=== PATIENT | female | born 1940 | race Caucasian/White ===

== ENCOUNTER → 2019-08-15 10:49 | Outpatient (CLI) | payer MEDICARE, SELFPAY ==
[2019-08-15 11:51] LABS: Alanine Aminotransferase 23 IU/L (9-52); Albumin 4.5 g/dL (3.5-5.0); Albumin Globulin Ratio 1.2 (1.0-2.8); Alkaline Phosphatase 98 U/L (38-126); Aspartate Aminotransferase 30 IU/L (14-36); BUN Creatinine Ratio 34.4 (6-22); Bilirubin Total 0.7 mg/dL (0.2-1.3); Blood Urea Nitrogen 31 mg/dL (7-17); Calcium 9.8 mg/dL (8.4-10.2); Carbon Dioxide 29 mmol/L (22-32); Chloride 98 mmol/L (98-107); Estimated Glomerular Filt Rate > 60.0 mL/min (>60); Globulin 3.7 g/dL (1.7-4.1); Glucose 102 mg/dL (80-110); HEMOLYSIS < 15 (0-50); Potassium 3.6 mmol/L (3.4-5.1); Sodium 138 mmol/L (137-145); Total Protein 8.2 g/dL (6.3-8.2)
--- NOTE | 2019-08-15 11:58 | DI.CT.S_ITS ---
PROCEDURE: CT ABDOMEN PELVIS W CON INDICATIONS: urinary tract infection TECHNIQUE: After the administration of oral and intravenous contrast, 5 mm thick sections acquired from the diaphragms to the symphysis. 5 mm thick coronal and sagittal reformats were performed. For radiation dose reduction, the following was used: automated exposure control, adjustment of mA and/or kV according to patient size. COMPARISON: [facility], CT, ABDOMEN/PELVIS WITH CONTRAST, 12/07/2016, 16:12. FINDINGS: Image quality: Excellent. ABDOMEN: Lung bases: Mild bibasilar atelectasis. There are partially imaged possible subcutaneous/soft tissue masses of the inferior right breast, measuring up to approximately 2.0 cm in greatest diameter. Solid organs: There is diffuse hypoattenuation consistent with hepatic steatosis. Gallbladder is unremarkable. Biliary system is non-dilated. There is a punctate calcification in the pancreatic head that is stable to comparison exam of 12/07/16. Pancreas enhances normally. Spleen is normal in size and enhancement. No adrenal nodules. Kidneys are normal in size and enhancement, without hydronephrosis. No nephrolithiasis identified. Subcentimeter hypoattenuating foci within the left kidney are too small to fully characterize on this exam, but are most consistent with renal cysts. There is minimal asymmetric urothelial enhancement of the proximal left ureter. Peritoneum and bowel: No evidence of bowel obstruction. Normal appendix seen on axial image 44 of series 2. There is diffuse colonic diverticulosis that is worst in the sigmoid colon. There is minimal fat stranding of the left lower quadrant of the abdomen adjacent the sigmoid colon. No free fluid or air. Nodes and vessels: No retroperitoneal or mesenteric adenopathy. Aorta and inferior vena cava are normal in caliber. There is moderate calcified and noncalcified plaque of the abdominal aorta. Miscellaneous: There is a 1.0 cm fat-containing umbilical hernia. PELVIS: Genitourinary: Bladder wall thickness is normal. Uterus is present. There is prominence of the pelvic vasculature adjacent to uterus. Miscellaneous: No inguinal hernias or adenopathy. Bones: No suspicious bony lesions. Moderate multilevel degenerative changes of the lumbar spine with grade 1 anterolisthesis of L4 on L5. IMPRESSION: 1. Minimal asymmetric urothelial enhancement of the proximal left ureter, which may be reflective of low-grade infection/inflammation. No tammy CT evidence of hydronephrosis, nephrolithiasis, or perinephric abscess. Correlation with urinalysis suggested. 2. Minimal fat stranding adjacent the sigmoid colon, which may represent a low-grade colitis or diverticulitis in the appropriate clinical setting. No intra-abdominal abscess, free fluid, or free intraperitoneal air identified. 3. Partially imaged possible subcutaneous/soft tissue masses of the inferior right breast; recommend diagnostic mammography with possible ultrasound if not recently performed. Dictated by: Jace Hope M.D. on 08/15/2019 at 15:52 Approved by: Jace Hope M.D. on 08/15/2019 at 17:34
== END ==
PROVIDERS: PCP Family Medicine; Visit Provider Family Medicine
DX: N39.0 Urinary tract infection, site not specified (principal); N63.10 Unspecified lump in the right breast, unspecified quadrant; K42.9 Umbilical hernia without obstruction or gangrene; K57.30 Diverticulosis of large intestine without perforation or abscess without bleeding; I70.0 Atherosclerosis of aorta; M43.16 Spondylolisthesis, lumbar region
CPT/HCPCS: 36415; 74177; 80053; Q9967

== ENCOUNTER 2020-05-04 10:24 | Emergency (ER) | payer MEDICARE, SELFPAY ==
[2020-05-04 10:27] VITALS: BP 178/81; PULSE 117; RESP 24; TEMP 36.3; O2SAT 92
--- NOTE | 2020-05-04 10:34 | DI.RAD.S_ITS ---
PROCEDURE: XR CHEST 1V INDICATIONS: Shortness of breath TECHNIQUE: One view of the chest was acquired. COMPARISON: [facility], , CHEST 2 VIEW, 12/07/2016, 13:57. FINDINGS: Surgical changes and devices: None. Lungs and pleura: Lungs are clear. Scattered scarring/atelectasis. No pleural effusions or pneumothorax. Mediastinum: Mediastinal contours appear normal. Heart size is normal. Bones and chest wall: No suspicious bony lesions. Overlying soft tissues appear unremarkable. Right shoulder degeneration and possible calcific tendinitis. Lateral curvature of the spine and discogenic changes. IMPRESSION: No acute disease Dictated by: Seun Rodríguez M.D. on 05/04/2020 at 11:39 Approved by: Seun Rodríguez M.D. on 05/04/2020 at 11:41
--- NOTE | 2020-05-04 10:48 | ED.GENADULT ---
HPI - General Adult General Chief complaint: Shortness of Breath/Dyspnea Stated complaint: rt leg clot per phys Time Seen by Provider: 05/04/20 10:25 Source: patient Mode of arrival: Ambulatory Limitations: no limitations History of Present Illness HPI narrative: Patient is an 79-year-old female. I received a call from her primary doctor yesterday sting the patient was going to come to the emergency department last night for evaluation of a potential DVT/PE. The concern was this was because the patient was having left greater than right lower extremity swelling. And she was also complaining of shortness of breath. She also has a history of COPD however does not use home oxygen. No prior history of CHF. She states that she has been told that she has had a heart attack in the past based off of EKG findings but has never had chest pain. Has never had a stroke before not on anticoagulation. Patient states that last evening she missed the [place] and instead of taking a later [place] and being stuck here and not being able to return home she decided to come this morning. She states that she is still having shortness of breath however this has improved. She denies having any chest pain. She states that she is having lower extremity swelling with the left being greater than right however it is much improved from yesterday. She also states that the swelling yesterday was not only in her lower extremities but also in her hands and her face which she states has improved as well. Related Data Home Medications Medication Instructions Recorded Confirmed folic acid 2 mg PO QDAY #0 07/23/16 Previous Rx's Medication Instructions Recorded triamterene-hydrochlorothiazid 1 tab PO QDAY #90 tab 11/27/16 estradiol [Estrace] 0 VAGINAL 2-3 DAYS/WK #42 gm 12/08/16 trazodone 50 mg PO SEE INSTRUCTIONS #180 tab 02/04/17 sertraline 1.5 tab PO HS #45 tab 06/26/17 Allergies Allergy/AdvReac Type Severity Reaction Status Date / Time codeine [CODEINE] Allergy Mild N & V Verified 05/04/20 10:36 Penicillins [PENICILLINS] Allergy Mild RASH Verified 05/04/20 10:36 Review of Systems Constitutional Constitutional: Denies fever(s) and Denies headache(s) ENT Ears, Nose, Mouth, and Throat: Denies headache(s) Cardiovascular Cardiovascular: Denies chest pain and Reports dyspnea Respiratory Respiratory: Reports cough and Reports dyspnea Gastrointestinal Gastrointestinal: Denies abdominal pain, Denies change in bowel habits and Denies diarrhea Musculoskeletal Musculoskeletal: Denies arthralgias and Denies myalgias Comments: Left greater than right lower extremity swelling Integumentary/Breasts Skin/Breast: Denies rash Neurologic Neurologic: Denies behavioral changes and Denies headache(s) Psychiatric Psychiatric: Denies behavioral changes Hematologic/Lymphatic Hematologic/Lymphatic: Denies easy bleeding and Denies easy bruising Patient History Medical History C. difficile colitis (Inactive) Controlled depression (05/29/16) COPD (chronic obstructive pulmonary disease) (Acute) Hypokalemia (Inactive) Rheumatoid arthritis with positive rheumatoid factor (10/01/16) Surgical History (Updated 03/30/18 @ 06:02 by Conversion Provider) Status post delivery Family History (Updated 10/29/15 @ 00:00 by Conversion Provider) Sister Age: 83 Hypertension Social History Smoking Status: Former smoker Smoking Status: Former smoker alcohol intake frequency: 0-2 drinks per day Substance Use Type: does not use Exam Initial Vital Signs Initial Vital Signs: Vital Signs Temperature 97.3 F L 05/04/20 10:27 Pulse Rate 117 H 05/04/20 10:27 Respiratory Rate 24 05/04/20 10:27 Blood Pressure 178/81 H 05/04/20 10:27 Pulse Oximetry 92 05/04/20 10:27 Const General: cooperative, comfortable and well developed Limitations: mental status not altered [facility] [place] Head: normal to inspection and normocephalic Resp Effort & Inspection: normal respiratory effort, cough, not labored and tachypneic Auscultation: clear to auscultation bilaterally Cardio Rate: tachycardic Rhythm: regular rhythm Pulses: radial pulses present GI Inspection: non-distended Palpation: soft Skin Lesions: no lesions Rashes: no rashes Neuro General: patient alert, patient awake and patient oriented x3 Cognition: normal cognition Speech: speech normal Extrem General: normal to inspection, capillary refill normal and edema (1+ pitting edema left lower extremity) Psych Appearance: grossly normal and well kempt Scores GCS Goessel coma scale eye opening: Spontaneous Goessel coma scale verbal response: Orientated Ethan coma scale motor response: Obey commands Ethan coma scale total score: 15 Course Orders Ordered: ED Orders 05/04/20 10:34 XR chest 1V Stat EKG-12 Lead Stat 05/04/20 10:50 Complete Blood Count AUTO DIFF Stat Comprehensive Metabolic Panel Stat D Dimer Stat Lipase Stat NT-proBNP (BNP-Adult 18+) Stat Partial Thromboplastin Time Stat Procalcitonin Stat Prothrombin Time INR Stat Troponin I Stat Vital Signs Vital signs: Vital Signs - 8 hr 05/04/20 10:27 05/04/20 11:17 Temperature 97.3 F L Pulse Rate 117 H 100 H Respiratory Rate 24 27 H Blood Pressure 178/81 H Blood Pressure [Right Arm] 148/85 H Pulse Oximetry 92 97 Medical Decision Making Lab Data Lab results reviewed: Yes I reviewed the patient's lab results. Result diagrams: 05/04/20 10:50 05/04/20 10:50 Labs: Lab Results 05/04/20 05/04/20 05/04/20 Range/Units 10:50 10:50 10:50 WBC 6.7 (4.5-11.0) X10^3/uL RBC 6.41 H (4.0-5.2) X10^6/uL Hgb 11.6 L (12.0-16.0) g/dL Hct 36.4 (36-46) % MCV 56.8 L (80-100) fL MCH 18.1 L (26-34) PG MCHC 31.9 (30-36) % RDW 16.0 H (11.6-14.8) % Plt Count 184 (150-400) X10^3/uL Neut % (Auto) 45.1 L (50-75) % Lymph % (Auto) 38.7 (25-40) % [place] % (Auto) 14.0 (3-14) % Eos % (Auto) 1.3 L (2-4) % Baso % (Auto) 0.9 (0-2) % Neut # (Auto) 3000 (3265-9406) /uL Lymph # (Auto) 2600 (2017-9239) /uL [place] # (Auto) 900 (0-900) /uL Eos # (Auto) 100 (0-450) /uL Baso # (Auto) 100 (0-100) /uL RBC Morphology See below Anisocytosis 1+ H Microcytosis 2+ H PT (10.1-12.7) SECONDS INR (0.9-1.3) APTT (26.4-36.2) SECONDS D-Dimer 369 H (<230) ng/mL Sodium 138 (137-145) mmol/L Potassium 4.6 (3.4-5.1) mmol/L Chloride 101 (98-107) mmol/L Carbon Dioxide 29 (22-32) mmol/L BUN 24 H (7-17) mg/dL Creatinine 0.90 (0.52-1.04) mg/dL Estimated GFR > 60.0 (>60) mL/min BUN/Creatinine Ratio 26.7 H (6-22) Glucose 102 (80-110) mg/dL Calcium 9.6 (8.4-10.2) mg/dL Total Bilirubin 0.7 (0.2-1.3) mg/dL AST 31 (14-36) IU/L ALT 18 (<35) IU/L Alkaline Phosphatase 101 (38-126) U/L Troponin I (0.01-0.034) ng/mL NT-Pro-B Natriuret Pep 179 (<450) pg/mL Total Protein 7.8 (6.3-8.2) g/dL Albumin 4.2 (3.5-5.0) g/dL Globulin 3.6 (1.7-4.1) g/dL Albumin/Globulin Ratio 1.2 (1.0-2.8) Lipase 49 (23-300) U/L Procalcitonin (<0.5) ng/mL 05/04/20 05/04/20 05/04/20 Range/Units 10:50 10:50 10:50 WBC (4.5-11.0) X10^3/uL RBC (4.0-5.2) X10^6/uL Hgb (12.0-16.0) g/dL Hct (36-46) % MCV (80-100) fL MCH (26-34) PG MCHC (30-36) % RDW (11.6-14.8) % Plt Count (150-400) X10^3/uL Neut % (Auto) (50-75) % Lymph % (Auto) (25-40) % [place] % (Auto) (3-14) % Eos % (Auto) (2-4) % Baso % (Auto) (0-2) % Neut # (Auto) (0248-6749) /uL Lymph # (Auto) (3736-7150) /uL [place] # (Auto) (0-900) /uL Eos # (Auto) (0-450) /uL Baso # (Auto) (0-100) /uL RBC Morphology Anisocytosis Microcytosis PT 11.7 (10.1-12.7) SECONDS INR 1.0 (0.9-1.3) APTT 29 (26.4-36.2) SECONDS D-Dimer (<230) ng/mL Sodium (137-145) mmol/L Potassium (3.4-5.1) mmol/L Chloride (98-107) mmol/L Carbon Dioxide (22-32) mmol/L BUN (7-17) mg/dL Creatinine (0.52-1.04) mg/dL Estimated GFR (>60) mL/min BUN/Creatinine Ratio (6-22) Glucose (80-110) mg/dL Calcium (8.4-10.2) mg/dL Total Bilirubin (0.2-1.3) mg/dL AST (14-36) IU/L ALT (<35) IU/L Alkaline Phosphatase (38-126) U/L Troponin I < 0.012 (0.01-0.034) ng/mL NT-Pro-B Natriuret Pep (<450) pg/mL Total Protein (6.3-8.2) g/dL Albumin (3.5-5.0) g/dL Globulin (1.7-4.1) g/dL Albumin/Globulin Ratio (1.0-2.8) Lipase (23-300) U/L Procalcitonin < 0.05 (<0.5) ng/mL Imaging Data Chest x-ray: Radiologist's Impression: [address] [address] XRay Report Signed Patient: Nancy Miner GMR#: [id number] : 1940Acct:[id number] Age/Sex: 79 / FDate of Service: 05/04/20 Loc: ED Accession Number: [id number] Procedure: XR chest 1V Ordering Provider: Javier Beebe D.O. PROCEDURE: XR CHEST 1V INDICATIONS: Shortness of breath TECHNIQUE: One view of the chest was acquired. COMPARISON: [facility], , CHEST 2 VIEW, 12/07/2016, 13:57. FINDINGS: Surgical changes and devices: None. Lungs and pleura: Lungs are clear. Scattered scarring/atelectasis. No pleural effusions or pneumothorax. Mediastinum: Mediastinal contours appear normal. Heart size is normal. Bones and chest wall: No suspicious bony lesions. Overlying soft tissues appear unremarkable. Right shoulder degeneration and possible calcific tendinitis. Lateral curvature of the spine and discogenic changes. IMPRESSION: No acute disease Dictated by: Seun Rodríguez M.D. on 05/04/2020 at 11:39 Approved by: Seun Rodríguez M.D. on 05/04/2020 at 11:41 ECG Data Attestation: I personally reviewed and interpreted this ECG as follows: Prior ECG tracings: not available for review Interpretation: Sinus rhythm Ventricular rate of 93 Frequent PVCs in bigeminy pattern Normal QRS Normal QTC Nonspecific ST T wave changes MDM Narrative Medical decision making narrative: Patient does have some left lower extremity swelling greater than the right however she states that it is actually improved today compared to yesterday. She has a cough but this is chronic. She has no chest pain. She actually states that her shortness of breath is better today than what it was yesterday. She did not want an IV upon arrival. EKG shows bigeminy however the patient states that she has been told that she has frequent PVCs. Patient's D-dimer is less than 500. Troponin is negative. Chest x-ray is unremarkable. Rest of her labs are unremarkable. Had a discussion with the patient regarding putting in an IV and obtaining a CT scan or obtaining left lower extremity ultrasound however the patient states she did not want this done. She expressed understanding that we could potentially be missing a life-threatening illness such as a pulmonary embolism. Patient is alert oriented x3. GCS 15. Not clinically intoxicated. My opinion has the capacity to make decisions. Patient states that she would like to go home and follow-up with her primary doctor without further workup here in the emergency department. She was given return precautions and follow-up instructions. She expressed understanding agreement. Discharge Plan Departure Patient Disposition: Home Clinical Impression: Swelling of lower limb, Cough Instructions: DI for Peripheral Edema, Unilateral Activity Restrictions/Additional Instructions: I recommend that you contact your primary provider to discuss further workup. Please return to the emergency department for any new or worsening symptoms Prescriptions: No Action folic acid 1 MG tablet 2 mg PO QDAY Qty: 0 RF: 0 triamterene-hydrochlorothiazid 37.5 MG/25 MG tablet 1 tab PO QDAY Qty: 90 RF: 3 estradiol [Estrace] 0.01 % cream 0 Vaginal 2-3 DAYS/WK Qty: 42 RF: 10 trazodone 50 MG tablet 50 mg PO SEE INSTRUCTIONS Qty: 180 RF: 3 sertraline 50 MG tablet 1.5 tab PO HS Qty: 45 RF: 12 Referrals: Javier Shields [Primary Care Provider] -
[2020-05-04 11:04] LABS: Add Manual Diff / Slide Review NO; Basophils Absolute Auto 100 /uL (0-100); Basophils Percent Auto 0.9 % (0-2); Eosinophils Absolute Auto 100 /uL (0-450); Eosinophils Percent Auto 1.3 % (2-4); Hematocrit 36.4 % (36-46); Hemoglobin 11.6 g/dL (12.0-16.0); Lymphocytes Absolute Auto 2600 /uL (1100-4500); Lymphocytes Percent Auto 38.7 % (25-40); Mean Corpuscular HGB Conc 31.9 % (30-36); Mean Corpuscular Hemoglobin 18.1 PG (26-34); Mean Corpuscular Volume 56.8 fL (80-100); Monocytes Absolute Auto 900 /uL (0-900); Neutrophils Absolute Auto 3000 /uL (1500-7000); Neutrophils Percent Auto 45.1 % (50-75); Platelet Count 184 X10^3/uL (150-400); Red Blood Cell Count 6.41 X10^6/uL (4.0-5.2); White Blood Cell Count 6.7 X10^3/uL (4.5-11.0)
--- NOTE | 2020-05-04 11:05 | PC.NURSE ---
patient up to restroom. Required assistance to get unplugged from monitor. Patient ambulated self without assistance to restroom.
--- NOTE | 2020-05-04 11:06 | PC.NURSE ---
drawn by lab
[2020-05-04 11:12] LABS: Prothrombin Time 11.7 SECONDS (10.1-12.7)
[2020-05-04 11:15] LABS: Alanine Aminotransferase 18 IU/L (<35); Albumin 4.2 g/dL (3.5-5.0); Albumin Globulin Ratio 1.2 (1.0-2.8); Alkaline Phosphatase 101 U/L (38-126); Aspartate Aminotransferase 31 IU/L (14-36); BUN Creatinine Ratio 26.7 (6-22); Bilirubin Total 0.7 mg/dL (0.2-1.3); Blood Urea Nitrogen 24 mg/dL (7-17); Calcium 9.6 mg/dL (8.4-10.2); Carbon Dioxide 29 mmol/L (22-32); Chloride 101 mmol/L (98-107); Estimated Glomerular Filt Rate > 60.0 mL/min (>60); Globulin 3.6 g/dL (1.7-4.1); Glucose 102 mg/dL (80-110); HEMOLYSIS < 15 (0-50); Lipase 49 U/L (23-300); PTT Partial Thromboplastin Tim 29 SECONDS (26.4-36.2); Potassium 4.6 mmol/L (3.4-5.1); Sodium 138 mmol/L (137-145); Total Protein 7.8 g/dL (6.3-8.2)
[2020-05-04 11:17] VITALS: BP 148/85; PULSE 100; RESP 27; O2SAT 97
[2020-05-04 11:24] LABS: NT-proBNP (BNP-Adult 18+) 179 pg/mL (<450)
[2020-05-04 11:27] LABS: Troponin I < 0.012 ng/mL (0.01-0.034)
[2020-05-04 11:30] LABS: D Dimer 369 ng/mL (<230)
[2020-05-04 11:31] LABS: Procalcitonin < 0.05 ng/mL (<0.5)
[2020-05-04 11:38] LABS: Anisocytosis 1+; Microcytosis 2+
== END 2020-05-04 12:18 | disposition home or self-care (01) ==
PROVIDERS: Emergency Provider Emergency Medicine; PCP Family Medicine
DX: R06.02 Shortness of breath (principal); R05 Cough; R60.0 Localized edema; R00.8 Other abnormalities of heart beat
CPT/HCPCS: 36415; 71045; 80053; 83690; 83880; 84145; 84484; 85025; 85379; 85610; 85730; 93005; 93010; 99284

== ENCOUNTER → 2021-07-11 12:32 | Outpatient (CLI) | payer MEDICARE, SELFPAY ==
--- OUTSIDE RECORDS SUMMARY | 2021-06-17 08:20 | XMS_ITS | Referral Summary ---
:1940 Author Organization [facility] Address [address] [place] [address] Care Team Providers Name Role Phone NAKUL Muro Primary Care Provider Reason for Referral Hospital - Outpatient (Routine) Status Reason Specialty Diagnoses / Procedures Referred By Erica valentine Referred To Contact Closed Diagnoses MARTIN (dyspnea on exertion) Chronic obstructive pulmonary disease, unspecified COPD type (CMS/HCC) [facility] Complete PFT with DLCO [address] [place] [address] [address] [id number] [place], [place] Phone: [phone] Phone: Electronically signed by Deidra Arreaga MD at (Routine) Status Reason Specialty Diagnoses / Referred By Referred To Procedures Contact Contact Pending Review Diagnoses LBBB (left bundle branch block) MARTIN (dyspnea on exertion) Deidra Arreaga Procedures ECHOCARDIOGRAM JOSÉ Smith MD [address] [place] [address] [address] [place] [address] Electronically signed by eDidra Arreaga MD at Reason for Visit Reason Comments Heart Problem Evaluate and Treat (Routine) Status Reason Specialty Diagnoses / Procedures Referred By Erica valentine Referred To Contact Closed Diagnoses Chronic obstructive pulmonary disease, unspecified Heart disease, unspecified Nader Brown CARDIOLOG[facility] Procedures [facility] OFF[facility] [address] [address] [place], [address] Phone: [place] [address] Phone: [phone] Fax: Encounter Details Date Type Department Care Team Description 05/31/[address] [facility] Deidra Arreaga LBBB (left bundle branch block) (Primary Dx); Clinics Cardiology RMD MARIO Clinton (dyspnea on exertion); [place] [address] [place] [address] Sinus tachycardia; [address] [place] [address], [address] Chronic obstructive pulmonary disease, u nspecified COPD type ([facility]/HCC) [place], [place] [id number] Allergies Active Allergy Reactions Severity Noted Date Comments Codeine Nausea And Vomiting 11/16/2014 Penicillins Rash Low 11/30/1997 Sulfa (Sulfonamide Nausea Only 11/30/1997 Antibiotics) Sulfasalazine 03/15/2003 severe nausea. Has taken since and has not had a probl em. documented as of this encounter (statuses as of 06/14/2021) Medications Medication Sig Dispensed Refills Start Date End Date Status albuterol HFA Inhale 2 puffs 0 08/24/2017 Active (PROVENTIL every 4 hours. HFA;VENTOLIN HFA) 90 mcg/actuation inhaler triamterene-hydrochlo Take 1 tablet by 0 03/03/2014 Active rothiazid mouth daily (MAXZIDE-25) 37.5-25 mg baclofen (LIORESAL) 0 11/17/2019 Active 10 mg tablet FLUoxetine (PROzac) Take 20 mg by 0 11/07/2020 Active 20 mg capsule mouth daily ipratropium HFA Inhale 2 puffs 0 10/19/2012 Active (ATROVENT HFA) 17 every 4 (four) mcg/actuation inhaler hours as needed magnesium oxide Take 400 mg by 0 07/23/2018 Active (MAG-OX) 400 mg mouth nightly (241.3 mg magnesium) tablet nitrofurantoin Take 50 mg by 0 04/24/2020 Active (MACRODANTIN) 50 mg mouth daily capsule tiotropium (SPIRIVA) Place 1 capsule 0 12/08/2019 Active 18 mcg into inhaler and inhale daily triamcinolone Administer 1 0 12/03/2012 Ac tive (NASACORT) 55 mcg spray into each nasal inhaler nostril daily budesonide-formoteroL Inhale 2 puffs 2 1 Inhaler 11 11/13/2020 11/13/2021 Active (SYMBICORT) 160-4.5 (two) times a day mcg/actuation inhaler Rinse mouth with water after use to reduce aftertaste and incidence of candidiasis. Do not swallow. leflunomide (ARAVA) Take 1 tablet (10 90 tablet 1 03/13/2021 Active 10 mg mg total) by tabletIndications: mouth daily Seropositive rheumatoid arthritis of multiple joints (CMS/HCC) fluticasone Inhale 0 Active furoate-vilanteroL 200-25 mcg/dose blister with device documented as of this encounter (statuses as of 06/14/2021) Active Problems Problem Noted Date H/O Clostridium difficile infection 08/17/2019 Beta-thalassemia 08/30/2018 Overview: Formatting of this note might be differe nt from the original. Beta thalassemia minor?Beta thalassemia minor (also called beta thalassemia trait) is a carrier condition in which an individual is heterozygous for a beta+ or beta0 thalassemia mutation. Beta curt lassemia minor is often an asymptomatic carrier state. Individuals with beta thalassemia minor may have mild anemia; most are asymptomatic but exhibit marked microcytosis that can be mistaken for iron deficiency. (See 'Differential diagnosis' below.) The possibility of other subtle symptoms or findings was addressed in a 2007 retrospective review involving 217 individuals with beta thalassemia trait [29]. Approximately two-thirds were aware of their diagnosis. A control group consisted of 89 healthy controls and 96 individuals with microcytic anemia of other causes such as mild iron deficiency. Compared with controls, the individuals with beta curt lassemia trait were more likely to have symptoms of anemia (lethargy, fatigue) and to seek medical attention for fever. Symptoms in the individuals with beta thalassemia trait were similar to those with mild microcytic anemia of other causes and were not influenced by knowledge of the beta thalassemia trait diagnosis. Mild anemia and/or microcytosis ? Mild anemia with microcytosis, or microcytosis alone, is consistent with thalassemia minor. The hemoglobin level is usually >10 g/dL, and there is not a large component of ongoing hemolysis. Fibromyalgia 09/02/2017 Osteoarthritis 09/02/2017 Overview: Formatting of this note might be differe nt from the original. widespread FERNIE (obstructive sleep apnea) 09/02/2017 Overview: Formatting of this note might be differe nt from the original. On CPAP Centrilobular emphysema 03/08/2015 Overview: Formatting of this note is different fro m the original. Date FEV1 FVC DLCO 03/08/14 0.84 1.51 8.6 08/13/16 0.82 1.64 7.2 10/15/17 0.87 1.56 6.7 Last Assessment & Plan: Formatting of this note might be differe nt from the original. She has end-stage COPD with an FEV1 of a bout 0.8 and severe reduction in DLCO. I have encouraged her to continue to use her inhalers and to exercise. She reports that she has been evaluated by cardiol georgette and is not thought to be at risk for significant coronary artery disease. I am not identified any other possible comorbidities that could be playing a role. I will check an oxygen profile and consider a prescription for oxygen if indicated. 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 ? Patient [facility] for concerns of rheumatoid arthritis on 09/13/2020 [facility]: ?? 09/18/05 note She has had Rheumatoid arthritis for the last six to seven years and is currently on DMARD treatment with Leflunomide 20mg daily. She complains of intermittent pain and swelling in the small joints of her hands (MCP joints). She is mainly troubled by pain in the base of left thumb that is worse upon movement of the thumb. This is not accompanied by swelling. She also has intermittent swelling and pain in both her wrists. 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 The remainder of her peripheral joints, including the knees, ankles and the MTP joints of the feet are doing rather well without any significant pain or swelling. She denies significant symptomatology in her cervical spine. There is no history of extraarticular features such as recurrent re dness of the eyes, excessive dryness of the eyes or the mouth or subcutaneous nodules. ?? Previously, she has been on oral week ly methotrexate with very good control of disease activity. However, she has been unable to take the medication for more than six months at a stretch because of d evelopment of mood swings. Most recently , she was on methotrexate from December 2004 to June 2005, before it had to be discontinued because of mood swings. Since late June 2005, she has been taking Leflunomide 20mg per day. She takes Etod olac one tablet once or twice as day as needed for control of pain. Her average intake is about two to three tablets in a week. ?? last seen on 10/01/05 - chronically on leflunomide as single drug DMARD therapy with occasional low dose prednisone with no extra-articular manifestations. RECORDS FROM [facility]: ?? Followed at [facility] most recently prior to [facility] rheumatology ?? Patient was seemingly continued solel y on leflunomide which she had continued since being treated at [place]. Notes also mention however usage of methotrexate by senior cost estimator for issues of autoimmune neutropenia and patient also was diagno sed with fibromyositis and issues of generalized osteoarthritis with patient last seen by them on 05/23/2020 LABS: From [facility] ? ESR of 10 on 05/24/1999 ? ESR of 11 on 10/17/99 ? Rheumatoid factor positive at 1: 160 on 10/17/1999 ? KURTIS positive at 1: 80 homogeneous pattern on 10/17/1999 ? CRP of 1.3 mg/dL and ESR of 21 on 09/18/2005 ? CRP of 0.44 mg/dL on 10/01/2005 LABS: From [facility] ? Rheumatoid factor positive at 570 on 03/15/2003 ? Rheumatoid factor positive at 82 and Anti-CCP strong positive at 112 on 04/16/2012 ? CRP of 5.4 mg/dL and ESR 54 on 04/16/2012 ? KURTIS screen negative on 04/16/2012 ? HIV and HCV antibody testing negative on 04/16/2012 ? HBV surface antigen, surface antibody and core antibody negative on 04/16/2012 Major depressive disorder, single episode, moderate documented as of this encounter (statuses as of 06/14/2021) Immunizations Name Administration Dates Next Due FLU High Dose 65+ (Fluzone) 09/06/2012 FLU PF 6-35 Mo (Fluzone 0.25 mL Syringe) 09/12/2015 Influenza, Quadrivalent 09/12/2015 Pneumococcal Conjugate PCV13 ([id number]) 09/12/2015 Pneumococcal Polysaccharide PPV23 ([id number]) 09/06/2012 TD Preservative Free (Tenivac) 02/22/1998 Tdap (Boostrix,Adacel) 09/06/2012 VFC Pneumococcal Conjugate PCV13 ([id number]) 09/12/2015 VFC Pneumococcal Polysaccharide PPV23 ([id number]) 09/06/20 12 VFC Tdap (Boostrix,Adacel) 09/06/2012 documented as of this encounter Social History Tobacco Use Types Packs/Day Years Used Date Former Smoker 0.5 60 Quit: 2011 Smokeless Tobacco: Never Used Alcohol Use Standard Drinks/Week Comments No 0 (1 standard drink = 0.6 oz pure alcoho l) Sex Assigned at Date Recorded Not on file Job Start Date Occupation Industry Not on file Not on file Not on file documented as of this encounter Last Filed Vital Signs Vital Sign Reading Time Taken Comments Blood Pressure 112/66 05/31/2021 2:31 PM PDT Pulse 110 05/31/2021 2:31 PM PDT Temperature - - Respiratory Rate - - Oxygen Saturation - - Inhaled Oxygen Concentration - - Weight 62.1 kg (137 lb) 05/31/2021 2:31 PM PDT Height 152.4 cm (5') 05/31/2021 2:31 PM PDT Body Mass Index 26.76 05/31/2021 2:31 PM PDT documented in this encounter Progress Notes Deidra Arreaga MD - 05/31/2021 2:30 PM PDT Subjective Patient ID: Nancy Miner is a 80 y.o. female that presents today for had concerns including Heart Problem. HPI: 80 yo W h/o HTN, CKD, and rheumatoid arthritis here for assessment of her dyspnea. Patient is here by herself. Patient states that has had dyspnea for the past few years and it has progressed withtime. She has dyspnea with doing her ADLs. She has chronic dizziness but denies chest pain, heart racing sensations, or syncope. She is not much active and uses a cane to get around. She lives by herself on [address] with her cat. 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 PROBLEM LIST: # LBBB # CKD # Rheumatoid arthritis # h/o amphetamine use while in college # COPD: quit cigs around 2009 Fam Hx: kids are healthy Past Medical History: Diagnosis Date ??? Anemia ??? Anxiety ??? Cataracts, bilateral ??? Emphysema lung (CMS/HCC) ??? Kidney stone ??? Leukemia (CMS/HCC) ??? Sleep apnea Past Surgical History: Procedure Laterality Date ??? SECTION Social History Socioeconomic History ??? Marital status: Unknown Spouse name: Not on file ??? Number of children: Not on file ??? Years of education: Not on file ??? Highest education level: Not on file Tobacco Use ??? Smoking status: Former Smoker Packs/day: 0.50 Years: 60.00 Pack years: 30.00 Quit date: 2011 Years since quittin.5 ??? Smokeless tobacco: Never Used Substance and Sexual Activity ??? Alcohol use: No ??? Drug use: No ??? Sexual activity: Defer Allergies Allergen Reactions ??? Codeine Nausea And Vomiting ??? Sulfa (Sulfonamide Antibiotics) Nausea Only ??? Sulfasalazine severe nausea. Has taken since and has not had a problem. ??? Penicillins Rash Current Medication List Sig albuterol HFA (PROVENTIL HFA;VENTOLIN HFA) 90 mcg/actuation inhaler Inhale 2 puffs every 4 hours. baclofen (LIORESAL) 10 mg tablet budesonide-formoteroL (SYMBICORT) 160-4.5 mcg/actuation inhaler Inhale 2 puffs 2 (two) times a day Rinse mouth with water after use to reduce aftertaste and incidence of candidiasis. Do not swallow. FLUoxetine (PROzac) 20 mg capsule Take 20 mg by mouth daily fluticasone furoate-vilanteroL 200-25 mcg/dose blister with device Inhale ipratropium HFA (ATROVENT HFA) 17 mcg/actuation inhaler Inhale 2 puffs every 4 (four) hours as needed leflunomide (ARAVA) 10 mg tablet Take 1 tablet (10 mg total) by mouth daily magnesium oxide (MAG-OX) 400 mg (241.3 mg magnesium) tablet Take 400 mg by mouth nightly nitrofurantoin (MACRODANTIN) 50 mg capsule Take 50 mg by mouth daily tiotropium (SPIRIVA) [address] 1 capsule into inhaler and inhale daily triamcinolone (NASACORT) 55 mcg nasal inhaler Administer 1 spray into each nostril daily triamterene-hydrochlorothiazid (MAXZIDE-25) 37.5-25 mg Take 1 tablet by mouth daily Review of Systems Constitutional: Negative for fatigue and unexpected weight change. Eyes: Negative for visual disturbance. Respiratory: Negative for shortness of breath. Cardiovascular: Negative for chest pain, palpitations and leg swelling. Gastrointestinal: Negative for blood in stool. Endocrine: Negative for polydipsia. Genitourinary: Negative for hematuria. Skin: Negative for rash. Neurological: Negative for dizziness, weakness and light-headedness. Hematological: Does not bruise/bleed easily. Psychiatric/Behavioral: The patient is not nervous/anxious. Objective BP 112/66 (BP Location: Left arm, Patient Position: Sitting) Pulse (!) 110 Ht 1.524 m Wt 62.1 kg BMI 26.76 kg/m?? Physical Exam: General appearance: No apparent distress, elderly, pleasant, cooperative HEET: Normocephalic atraumatic, no scleral icterus, tongue midline, mucous membranes moist Neck: supple Cardiovascular: RRR, normal S1 and normal S2, no murmurs/ rubs/gallops, PMI nondisplaced, no JVD, noperipheral edema Respiratory: Good aeration, CTAB Abdomen: Soft, nontender, nondistended, + bowel sounds Neuro: Alert, no facial droop, tongue midline, no gross motor deficits Psych: appropriate affect Skin: no rashes on face, neck, and lower extremities Echo 03/04/2019: Left ventricular ejection fraction is 60-65%. No regional wall motion abnormalities. Septal contraction pattern is consistent with left bundle branch block. Mild (Gr. I) left ventricular diastolic relaxation abnormality is demonstrated. Mild mitral regurgitation is present. Trace aortic insufficiency is demonstrated. Mild tricuspid regurgitation is present. Trace (physiologic) pulmonic insufficiency is present. Labs 02/05/2021: sodium 139, potassium 4.7, chloride 102, OC2 31, BUN 32, Cr 1.2 Assessment/Plan Comments: 1. LBBB (left bundle branch block) ECHOCARDIOGRAM COMPLETE 2. MARTIN (dyspnea on exertion) ECHOCARDIOGRAM COMPLETE, Complete PFT with DLCO, Complete blood count 3. Sinus tachycardia Thyroid Stimulating Hormone, Reflex to Free T4 4. Chronic obstructive pulmonary disease, unspecified COPD type (CMS/HCC) Complete PFT with DLCO # Dyspnea on exertion: Probably due to COPD (perhaps predominantly empysematous). Patient educatedabout her condition. Plan: - Echo - PFTs - CBC and TSH # LBBB: - Echo as above # Goals of care: patient wants to be DNR/DNI and wishes her care to be directed towards to comfort. F/U in 3 months in echo, PFTs, and labs as VV Electronically signed by Deidra Arreaga MD 05/31/2021 3:13 PM documented in this encounter Plan of Treatment Upcoming Encounters Date Type Specialty Care Team Description 09/03/2021 Telemedicine Cardiology Deidra Arreaga MD [address] [place], [place] [id number] 09/18/2021 Office Visit Rheumatology Jameson Buck MD [address] [facility] [place] [place], [place] [id number] Scheduled Orders Name Type Priority Associated Diagnoses Order S chedule ECHOCARDIOGRAM COMPLETE Imaging Routine LBBB (left bundle Expected: branch block) 05/31/2021, MARTIN (dyspnea on Expires: 12/2022 exertion) Complete PFT with DLCO PFT Routine MARTIN (dyspnea on Ex pected: exertion) 05/31/2021, Chronic obstructive Expires: 05/31/2022 pulmonary disease, unspecified COPD type (CMS/HCC) Complete blood count Lab Routine MARTIN (dyspnea on Expe cted: exertion) 05/31/2021, Expires: 2022 Thyroid Stimulating Lab Routine Sinus tachycardia Exp ected: Hormone, Reflex to Free T4 0 05/31/2021, Expires: 2021 documented as of this encounter Visit Diagnoses Diagnosis LBBB (left bundle branch block) - Primar y Other left bundle branch block MARTIN (dyspnea on exertion) Other dyspnea and respiratory abnormalit y Sinus tachycardia Other specified cardiac dysrhythmias Chronic obstructive pulmonary disease, u nspecified COPD type (CMS/HCC) documented in this encounter documented as of this encounter Advance Directives Documents on File Type Date Recorded 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
--- NOTE | 2021-07-11 12:37 | DI.ECHO.S_ITS ---
[facility]---------+ [facility] +---------+ : : [address] : : : : [id number] : : : : Phone: [phone] Echocardiogram Report + + :Name: KEANU FAJARDO Study Date: 07/11/2021 Height: 60 in : :[facility] ReadingLocation: Weight: 134 lb : : Gender: Female BSA: 1.6 m2 : :: 1940 Age: 80 yrs BP: 131/87 mmHg: :Reason For Study: LBBB : :Ordering Physician: Denae : :Rohit Arreaga Performed By: Sudheer Richardson : :Referring: DENAE ARREAGA : + + Interpretation Summary 1) Normal left ventricular size with mildly to moderately reduced systolic function (EF 40-45%). 2) Septal dysynchronous motion is consistent with conduction abnormality. 3) The right ventricle grossly appears normal in size with probable normal systolic function. 4) No significant valvular abnormalities. 5) No prior Echo available for comparison. Procedure: A two-dimensional transthoracic echocardiogram with color flow and Doppler was performed. The study quality was technically difficult. There is no prior echocardiogram noted for this patient. A contrast injection of Definity was performed to improve assessment of LV function. Left Ventricle: The left ventricle is normal in size. Left ventricular wall thickness is at the upper limits of normal. Proximal septal thickening is noted. Left ventricular systolic function is mild to moderately reduced. The ejection fraction is estimated to be 40-45%. Septal motion is consistent with conduction abnormality. Diastolic function could not be accurately assessed due to unobtainable data. Right Ventricle: The right ventricle grossly appears normal in size with probable normal systolic function. Atria: Both atria are normal in size. There is no Doppler evidence for an interatrial shunt. Mitral Valve: The mitral valve is normal in structure and function. There is no mitral regurgitation noted. Aortic Valve: There is moderate aortic valve sclerosis. There is no aortic valve stenosis. There is trace aortic regurgitation. Tricuspid Valve: The tricuspid valve is normal in structure and function. There is mild tricuspid regurgitation. The right ventricular systolic pressure is estimated to be at least 36 mmHg based on an estimated right atrial pressure of 3 mm Hg. Pulmonic Valve: The pulmonic valve is not well visualized. Great Vessels: The aortic root is normal size. The IVC is of normal diameter and collapses greater than 50% with a sniff. This suggests a low right atrial pressure of 3 mm Hg. Pericardium/ Pleura There is no pericardial effusion. There is no pleural effusion. MMode/2D Measurements & Calculations LVIDd: 3.7 cm LVOT diam: 2.0 cm LVIDs: 2.9 cm Ao root diam: 2.7 cm FS: 21.6 % IVSd: 1.4 cm LVPWd: 1.1 cm LV keita. diameter/BSA (cm/m^2): 2.3 LV sys. diameter/BSA (cm/m^2): 1.8 LA A2 area: 12.0 cm2 RA long axis: 3.6 cm LA A4 area: 9.6 cm2 RA area: 9.4 cm2 LA length (vol): 3.7 cm RA vol: 21.1 ml LA vol: 26.2 ml RA : 13.4 ml/m2 LA vol index: 16.7 ml/m2 RVD1 (basal): 2.7 cm LVLs ap4: 5.9 cm LVLd ap2: 6.7 cm LVLs ap2: 5.7 cm Doppler Measurements & Calculations Ao V2 max: 168.0 cm/sec LVOT Max Michael: 93.3 cm/sec Ao V2 mean: 115.0 cm/sec LV V1 max P.5 mmHg Ao max P.0 mmHg LV V1 VTI: 14.4 cm Ao mean P.0 mmHg JUANA(I,D): 2.2 cm2 Ao V2 VTI: 20.4 cm JUANA(V,D): 1.7 cm2 sev ratio: 0.71 JUANA indexed to BSA (cm^2/m^2): 1.4 TR max michael: 289.0 cm/sec SV(LVOT): 45.2 ml TR max P.4 mmHg PA pr(Accel): 63.7 mmHg AV VR_phl: 0.56 JUANA(VTI)/BSA_phl: 1.4 Reading Physician:06:17 PM
== END ==
PROVIDERS: PCP Physician Assistant Medical; Referring Provider Internal Medicine Cardiovascular Disease; Visit Provider Internal Medicine Cardiovascular Disease
DX: I08.2 Rheumatic disorders of both aortic and tricuspid valves (principal); I44.7 Left bundle-branch block, unspecified
CPT/HCPCS: 93306

== ENCOUNTER → 2021-07-19 09:55 | Outpatient (CLI) | payer MEDICARE, SELFPAY ==
[2021-07-19 19:52] LABS: Add Manual Diff / Slide Review NO; Basophils Absolute Auto 0 /uL (0-100); Basophils Percent Auto 0.7 % (0-2); Eosinophils Absolute Auto 100 /uL (0-450); Eosinophils Percent Auto 1.1 % (2-4); Hematocrit 36.2 % (36-46); Hemoglobin 11.1 g/dL (12.0-16.0); Lymphocytes Absolute Auto 3300 /uL (1100-4500); Lymphocytes Percent Auto 54.6 % (25-40); Mean Corpuscular HGB Conc 30.7 % (30-36); Mean Corpuscular Hemoglobin 17.3 PG (26-34); Mean Corpuscular Volume 56.3 fL (80-100); Monocytes Absolute Auto 1100 /uL (0-900); Monocytes Percent Auto 17.8 % (3-14); Neutrophils Absolute Auto 1600 /uL (1500-7000); Neutrophils Percent Auto 25.8 % (50-75); Platelet Count 146 X10^3/uL (150-400); Red Blood Cell Count 6.42 X10^6/uL (4.0-5.2); Red Cell Distribution Width 18.2 % (11.6-14.8)
[2021-07-19 20:07] LABS: Alanine Aminotransferase 25 IU/L (<35); Albumin Globulin Ratio 1.3 (1.0-2.8); Alkaline Phosphatase 77 U/L (38-126); Aspartate Aminotransferase 34 IU/L (14-36); BUN Creatinine Ratio 29.2 (6-22); Bilirubin Total 0.6 mg/dL (0.2-1.3); Blood Urea Nitrogen 33 mg/dL (7-17); Calcium 10.3 mg/dL (8.4-10.2); Carbon Dioxide 31 mmol/L (22-32); Chloride 101 mmol/L (98-107); Estimated Glomerular Filt Rate 46.2 mL/min (>60); Globulin 3.2 g/dL (1.7-4.1); Glucose 96 mg/dL (80-110); HEMOLYSIS < 15 (0-50); Sodium 140 mmol/L (137-145); Total Protein 7.2 g/dL (6.3-8.2)
[2021-07-19 20:22] LABS: Hypochromasia 2+; Microcytosis 2+
[2021-07-19 20:33] LABS: TSH w/ Reflex to FT4 1.47 uIU/mL (0.47-4.68)
== END ==
PROVIDERS: PCP Physician Assistant Medical; Visit Provider Physician Assistant Medical
DX: E87.6 Hypokalemia (principal); F32.9 Major depressive disorder, single episode, unspecified; J30.2 Other seasonal allergic rhinitis; J44.9 Chronic obstructive pulmonary disease, unspecified
CPT/HCPCS: 80053; 84443; 85025

== ENCOUNTER → 2021-08-12 11:25 | Outpatient (CLI) | payer MEDICARE, SELFPAY ==
[2021-08-12 19:46] LABS: Alanine Aminotransferase 20 IU/L (<35); Albumin Globulin Ratio 1.3 (1.0-2.8); Alkaline Phosphatase 89 U/L (38-126); Aspartate Aminotransferase 34 IU/L (14-36); BUN Creatinine Ratio 27.7 (6-22); Bilirubin Total 0.6 mg/dL (0.2-1.3); Blood Urea Nitrogen 28 mg/dL (7-17); Calcium 9.3 mg/dL (8.4-10.2); Carbon Dioxide 28 mmol/L (22-32); Chloride 99 mmol/L (98-107); Estimated Glomerular Filt Rate 52.6 mL/min (>60); Globulin 3.2 g/dL (1.7-4.1); Glucose 131 mg/dL (80-110); HEMOLYSIS 27 (0-50); Potassium 3.6 mmol/L (3.4-5.1); Sodium 138 mmol/L (137-145); Total Protein 7.2 g/dL (6.3-8.2)
[2021-08-12 20:01] LABS: Add Manual Diff / Slide Review NO; Basophils Absolute Auto 100 /uL (0-100); Basophils Percent Auto 1.8 % (0-2); Eosinophils Absolute Auto 0 /uL (0-450); Eosinophils Percent Auto 0.7 % (2-4); Hematocrit 35.9 % (36-46); Hemoglobin 11.2 g/dL (12.0-16.0); Lymphocytes Absolute Auto 3300 /uL (1100-4500); Lymphocytes Percent Auto 55.6 % (25-40); Mean Corpuscular HGB Conc 31.1 % (30-36); Mean Corpuscular Hemoglobin 17.6 PG (26-34); Mean Corpuscular Volume 56.4 fL (80-100); Monocytes Absolute Auto 900 /uL (0-900); Monocytes Percent Auto 15.7 % (3-14); Neutrophils Absolute Auto 1600 /uL (1500-7000); Neutrophils Percent Auto 26.2 % (50-75); Platelet Count 162 X10^3/uL (150-400); Red Blood Cell Count 6.37 X10^6/uL (4.0-5.2); Red Cell Distribution Width 16.9 % (11.6-14.8); White Blood Cell Count 5.9 X10^3/uL (4.5-11.0)
[2021-08-12 20:11] LABS: TSH w/ Reflex to FT4 1.46 uIU/mL (0.47-4.68)
[2021-08-12 20:36] LABS: Anisocytosis 2+; Microcytosis 3+; Poikilocytosis 1+
== END ==
PROVIDERS: PCP Physician Assistant Medical; Visit Provider Physician Assistant Medical
DX: E87.6 Hypokalemia (principal); F32.9 Major depressive disorder, single episode, unspecified; D56.9 Thalassemia, unspecified; N19 Unspecified kidney failure; R09.02 Hypoxemia
CPT/HCPCS: 80053; 84443; 85025

== ENCOUNTER 2022-01-29 12:16 | Inpatient (IN) | payer MEDICARE, SELFPAY ==
[2022-01-29] VITALS (28 sets, daily range): BP systolic 99–198; BP diastolic 61–91; PULSE 96–133; RESP 17–47; TEMP 36.6–37.4; O2SAT 84–100; BMI 24.7
--- NOTE | 2022-01-29 12:23 | DI.CT.S_ITS ---
PROCEDURE: CT HEAD/BRAIN WO CON INDICATIONS: multiple falls TECHNIQUE: Noncontrast 4.5 mm thick angled axial sections acquired from the foramen magnum to the vertex, with coronal and sagittal reformats. For radiation dose reduction, the following was used: automated exposure control, adjustment of mA and/or kV according to patient size. COMPARISON: [facility], CT, CT CERVICAL SPINE WO CON, 01/29/2022, 13:52. FINDINGS: Image quality: Excellent. CSF spaces: Basal cisterns are patent. No extra-axial fluid collections. There is moderate cerebral volume loss, with resultant ventricular and sulcal prominence. Brain: No intracranial hemorrhage, mass, or mass effect. There are subcortical, periventricular and deep white matter hypodensities consistent with mild to moderate chronic small vessel ischemic changes. The zafar-white matter junction appears preserved. There is intracranial internal carotid artery atherosclerosis. Skull and face: Calvarium and visualized facial bones demonstrate no definite acute fractures. There is heterogeneous appearance of the visualized osseous structures Sinuses: Visualized sinuses appear clear. There is partial fluid opacification in the mastoid air cells suggestive of mastoiditis. IMPRESSION: 1. No acute intracranial abnormality. 2. Moderate cerebral volume loss and [id number] chronic white matter small vessel ischemic changes. 3. Heterogeneous appearance of the visualized osseous structures likely reflect osteopenia. However, an infiltrative marrow process such as myeloma cannot be excluded. Recommend correlation clinically. Dictated by: Elliot Schultz M.D. on 01/29/2022 at 14:35 Approved by: Elliot Schultz M.D. on 01/29/2022 at 14:38
--- NOTE | 2022-01-29 12:23 | DI.CT.S_ITS ---
PROCEDURE: CT CHEST ABD PEL W CON INDICATIONS: bilateral rib pain from falling right groin pain TECHNIQUE: After the administration of intravenous contrast, 5 mm thick sections acquired from the lung apices to the symphysis. 2.5 mm thick coronal and sagittal reformats were acquired. Additional 7 mm thick coronal maximum intensity projection (MIP) reformats acquired through the lungs. Optional 10-minute delayed imaging may be performed from the kidneys to the bladder. For radiation dose reduction, the following was used: automated exposure control, adjustment of mA and/or kV according to patient size. COMPARISON: CT, CT ABDOMEN PELVIS W CON, 08/15/2019, 11:55. FINDINGS: Image quality: Excellent. CHEST: Lungs: No pulmonary contusions or lacerations. There is mild dependent atelectasis and scarring. No acute consolidation. There is a small pleural base nodule in the left lower lobe measuring up to 0.4 cm on series 3, image 252. No pneumothorax or hemothorax. Central and peripheral airways appear patent and normal in caliber. Mediastinum: No mediastinal hematomas. Heart size is normal. No pericardial effusion. Thoracic aorta and pulmonary arteries demonstrate normal size and enhancement. No mediastinal or hilar adenopathy. Esophagus is normal in caliber. There is a small hiatal hernia. Chest wall: No rib fractures. No subcutaneous emphysema. No axillary or supraclavicular adenopathy. There are bilateral breast implants with curvilinear density in the left implant capsule consistent with left intracapsular implant rupture. Min multiple heterogeneous masslike densities are demonstrated in the breasts bilaterally with associated coarse calcifications. Thyroid demonstrates no discrete nodules. ABDOMEN: Solid organs: Liver is normal in size and enhancement, without lacerations. Gallbladder appears within normal limits without calcified gallstones. Biliary system is non-dilated. Pancreas enhances normally, without transection. Spleen is normal in size and enhancement, without lacerations. No adrenal hematomas. Kidneys demonstrate no hydronephrosis. There are bilateral hypodense small foci in the kidneys which are too small to characterize but likely represent cysts. Peritoneum and bowel: No free fluid or air. Small and large bowel loops demonstrate normal wall thickness and caliber. There is colonic diverticulosis without acute diverticulitis. Nodes and vessels: No retroperitoneal or mesenteric adenopathy. Aorta and inferior vena cava are normal in size and enhancement. Miscellaneous: No ventral hernias. PELVIS: Genitourinary: Bladder wall thickness is normal. Miscellaneous: No inguinal hernias or adenopathy. Bones: No displaced rib fractures identified. There is a mild superior endplate compression deformity of the T6 vertebral body of indeterminate acuity with mild loss of height centrally of up to approximately 25%. There is grade 1 anterolisthesis at L4-5. Moderate to severe facet arthropathy demonstrated in the lower lumbar spine. Pelvic ring and hip joints appear intact. IMPRESSION: 1. Mild superior endplate compression deformity in the T6 vertebral body of indeterminate acuity. No retropulsed bony fragments. 2. Elsewhere, no definite acute traumatic abnormality in the chest, abdomen, or pelvis. 3. Left intracapsular breast implant rupture. 4. Bilateral partially calcified masslike densities within breasts of indeterminate etiology. Recommend correlation with clinical exam and mammography if indicated. Dictated by: Elliot Schultz M.D. on 01/29/2022 at 14:52 Approved by: Elliot Schultz M.D. on 01/29/2022 at 15:01
--- NOTE | 2022-01-29 12:23 | DI.CT.S_ITS ---
PROCEDURE: CT CERVICAL SPINE WO CON INDICATIONS: falls TECHNIQUE: Noncontrast 3 mm thick sections acquired from the skull base to the T4 level. Sagittal and coronal reformats were then constructed. For radiation dose reduction, the following was used: automated exposure control, adjustment of mA and/or kV according to patient size. COMPARISON: None. FINDINGS: Image quality: There is mild motion artifact. Bones: No fractures or subluxation. There is straightening of the cervical lordosis. There is multilevel degenerative disk disease most prominent at C4-C5 where there is moderate degeneration. Visualized superior ribs are intact. There is partial fluid opacification of the mastoid air cells suggestive of mastoiditis. Soft tissues: Prevertebral soft tissues are normal in thickness. No paravertebral hematomas. No apical pneumothoraces. IMPRESSION: 1. No fractures or subluxation. Dictated by: Elliot Schultz M.D. on 01/29/2022 at 14:39 Approved by: Elliot Schultz M.D. on 01/29/2022 at 14:50
--- NOTE | 2022-01-29 12:30 | ED.FALL ---
HPI - Fall General Chief Complaint: Fall Stated Complaint: fall Time Seen by Provider: 01/29/22 12:22 History of Present Illness HPI Narrative: Patient is a 81-year-old female who presents with frequent falls. She fell 3 days ago she was seen and evaluated at [facility]. She was released and yesterday she fell 6 times today she fell once. Also reports of fever today day. She denies any headache nausea or vomiting. She is having some rib pain along with some right groin pain but is able to move things okay. No shortness of breath she does have a history of COPD on home oxygen as needed. She says she really only needs it at night but has been wearing it more frequently and still falling. No productive cough. No painful or frequent urination. She feels like she is bruising more easily not on any anti-platelet or anticoagulation medication. She says when she falls sometime she is able to get herself up but not all the time. She does not have a help button to call. Sometime she has our phone on her when it is working appropriately she called for help. Related Data Home Medications Medication Instructions Recorded Confirmed fluticasone fur. 100 mcg-umeclid 1 inh INHALATION DAILY 06/18/21 11/07/21 62.5 mcg-vilant 25 mcg inhalat.powder (Trelegy Ellipta) tiotropium bromide 18 mcg capsule 1 cap INHALATION DAILY 06/18/21 11/07/21 with inhalation device (Spiriva with HandiHaler) leflunomide 20 mg tablet 20 mg PO DAILY 06/19/21 11/07/21 lorazepam [Ativan] 0.5 mg PO 06/19/21 11/07/21 metoprolol succinate 25 mg 25 mg PO DAILY 11/07/21 11/07/21 tablet,extended release 24 hr Previous Rx's Medication Instructions Recorded albuterol sulfate 90 mcg/actuation 2 puff INHALATION Q6H PRN #8.5 g 06/11/21 aerosol inhaler (Proventil HFA) tiotropium bromide 18 mcg capsule 1 cap INHALATION DAILY #1 inh 09/05/21 with inhalation device (Spiriva with HandiHaler) triamterene 37.5 1 tab PO QDAY #90 tab 09/26/21 mg-hydrochlorothiazide 25 mg tablet fluoxetine 40 mg capsule See Rx Instructions .ROUTE 01/10/22 .COMPLEX #90 cap nitrofurantoin macrocrystal 50 mg See Rx Instructions .ROUTE 01/10/22 capsule .COMPLEX #90 cap Allergies Allergy/AdvReac Type Severity Reaction Status Date / Time codeine [CODEINE] Allergy Mild N & V Verified 11/07/21 15:24 Penicillins [PENICILLINS] Allergy Mild RASH Verified 11/07/21 15:24 hydrocodone Allergy Unknown Verified 11/07/21 15:24 oxycodone Allergy Unknown Verified 11/07/21 15:24 sulfamethoxazole Allergy Unknown Verified 11/07/21 15:24 [From Bactrim] trimethoprim [From Bactrim] Allergy Unknown Verified 11/07/21 15:24 Review of Systems Review of Systems Narrative: GENERAL: Denies chills, fatigue, malaise, fever, sweats, travel HEENT: Denies sinus pain, ear pain, sore throat, difficulty swallowing, neck pain RESPIRATORY: Denies dyspnea, cough, wheezing, hemoptysis, sputum. CARDIOVASCULAR: Denies chest pain, palpitations, orthopnea, edema GASTROINTESTINAL: Denies nausea, vomiting, abdominal pain, diarrhea, constipation, melena. : Denies dysuria, frequency, incontinence, hematuria, urinary retention, flank pain. MUSCULOSKELETAL: See HPI SKIN: No rash, no erythema, no pruritus NEUROLOGIC: Denies weakness, dizziness, headache, numbness, change in speech, confusion PSYCHIATRIC: No concerning psychosocial issues. 12 point review of systems is negative except for those stated above and HPI Patient History Medical History C. difficile colitis Controlled depression (05/29/16) COPD (chronic obstructive pulmonary disease) Hypokalemia Rheumatoid arthritis with positive rheumatoid factor (10/01/16) Surgical History Status post delivery Family History Sister Age: 85 Hypertension Social History Smoking Status: Former smoker Smoking Status: Former smoker alcohol intake frequency: 0-2 drinks per day Substance Use Type: does not use Exam Initial Vital Signs Initial Vital Signs: Vital Signs Temperature 99.4 F 01/29/22 12:25 Pulse Rate 113 H 01/29/22 12:25 Respiratory Rate 18 01/29/22 12:25 Blood Pressure 152/85 H 01/29/22 12:25 Pulse Oximetry 98 01/29/22 12:25 GENERAL: Alert 81-year-old female no acute distress HEENT: Head atraumatic,EOMI, pupils reactive, face symmetric, moist mucous membranes NECK: No vertebral tenderness no step-off CARDIOVASCULAR: Regular rate and rhythm without murmurs, rubs or gallops. RESPIRATORY: Slightly decreased breath sounds bilaterally no significant tachypnea or respiratory distress. rib pain without paradoxical movement or sign of trauma ABDOMEN: Soft, nontender. Normoactive bowel sounds all 4 quadrants. No guarding or rebound. EXTREMITIES: Normal range of motion, no clubbing or edema. Neurovascularly intact. Mild right groin pain able to internally externally rotate it without problem NEUROLOGICAL: Alert and oriented x4. Batch Dumper strength equal bilaterally moving all extremities SKIN: No skin tears no abrasions no contusions Course Orders Ordered: ED Orders 01/29/22 12:19 Consult to [facility] - Dean Of Admissions Stat 01/29/22 12:23 CT cervical spine wo con Stat CT chest abd pel w con Stat CT head/brain wo con Stat EKG-12 Lead Stat 01/29/22 12:30 UA Complete [Urinalysis and Microscopic] Stat 01/29/22 12:34 Consult to [facility] Dean Of Admissions Stat 01/29/22 13:14 Blood Culture Stat Complete Blood Count AUTO DIFF Stat Comprehensive Metabolic Panel Stat Lactate (Lactic Acid) Stat Partial Thromboplastin Time Stat Procalcitonin Stat Prothrombin Time INR Stat Troponin & CK Cardiac Panel Stat 01/29/22 13:37 COVID19 -Nasal swab/Pre-Proc Stat 01/29/22 15:29 Consult to Physical Therapy Evaluate & Treat 01/29/22 16:05 BNP [NT-proBNP (BNP-Adult 18+)] Stat Trop I [Troponin I] Stat Discontinued Medications Albuterol/Ipratropium (Albuterol/Ipratropium 3 Ml Ampul) 3 ml INH NOW ONE Stop: 01/29/22 16:17 Last Admin: 01/29/22 16:31 Dose: 3 ml Documented by: TAB Furosemide (Furosemide 40 Mg/4 Ml Vial) 20 mg IV NOW ONE Stop: 01/29/22 17:11 Last Admin: 01/29/22 18:14 Dose: 20 mg Documented by: IVORY Methylprednisolone (Methylprednisolone 125 Mg/2 Ml Vial) 125 mg IV NOW ONE Stop: 01/29/22 16:17 Last Admin: 01/29/22 16:59 Dose: 125 mg Documented by: JOHANNA Vital Signs Vital signs: Vital Signs - 8 hr 01/29/22 12:25 01/29/22 12:37 01/29/22 12:38 Temperature 99.4 F Pulse Rate 113 H 114 H 112 H Respiratory Rate 18 38 H 34 H Blood Pressure 152/85 H 99/80 Pulse Oximetry 98 98 98 01/29/22 12:45 01/29/22 13:00 01/29/22 13:18 Temperature Pulse Rate 112 H 109 H 110 H Respiratory Rate 33 H 33 H 19 Blood Pressure 155/74 H 162/68 H Pulse Oximetry 98 98 98 01/29/22 13:30 01/29/22 13:45 01/29/22 14:05 Temperature Pulse Rate 108 H 108 H 111 H Respiratory Rate 33 H 26 H Blood Pressure 145/72 H 150/67 H Pulse Oximetry 98 98 100 01/29/22 14:06 01/29/22 14:15 01/29/22 14:30 Temperature Pulse Rate 110 H 105 H 104 H Respiratory Rate 32 H 30 H 27 H Blood Pressure 173/83 H 155/74 H Pulse Oximetry 100 100 100 01/29/22 14:31 01/29/22 14:45 01/29/22 15:00 Temperature Pulse Rate 104 H 101 H 101 H Respiratory Rate 26 H 26 H 28 H Blood Pressure 146/67 H 133/61 132/64 Pulse Oximetry 100 100 100 01/29/22 15:15 01/29/22 15:30 01/29/22 16:00 Temperature Pulse Rate 101 H 102 H 133 H Respiratory Rate 41 H 31 H Blood Pressure 132/64 146/64 H Pulse Oximetry 100 100 84 L 01/29/22 16:01 01/29/22 16:16 01/29/22 16:30 Temperature Pulse Rate 129 H 118 H 111 H Respiratory Rate 33 H 35 H 47 H Blood Pressure 198/91 H 130/65 132/63 Pulse Oximetry 94 98 97 01/29/22 16:31 01/29/22 17:00 01/29/22 17:30 Temperature Pulse Rate 103 H 110 H 116 H Respiratory Rate 20 33 H 46 H Blood Pressure 132/64 Pulse Oximetry 98 96 96 - Fall Lab Data Result diagrams: 01/29/22 13:14 01/29/22 13:14 Labs: Lab Results 01/29/22 01/29/22 01/29/22 Range/Units 12:30 13:14 13:14 WBC 4.2 L (4.5-11.0) X10^3/uL RBC 6.23 H (4.0-5.2) X10^6/uL Hgb 10.1 L (12.0-16.0) g/dL Hct 32.8 L (36-46) % MCV 52.7 L (80-100) fL MCH 16.3 L (26-34) PG MCHC 30.9 (30-36) % RDW 17.3 H (11.6-14.8) % Plt Count 111 L (150-400) X10^3/uL Neut % (Auto) 43.1 L (50-75) % Lymph % (Auto) 37.0 (25-40) % [place] % (Auto) 19.2 H (3-14) % Eos % (Auto) 0.1 L (2-4) % Baso % (Auto) 0.6 (0-2) % Neut # (Auto) 1800 (5630-2698) /uL Lymph # (Auto) 1600 (3855-0112) /uL [place] # (Auto) 800 (0-900) /uL Eos # (Auto) 0 (0-450) /uL Baso # (Auto) 0 (0-100) /uL RBC Morphology See below Hypochromasia 1+ H Poikilocytosis 2+ H Anisocytosis 1+ H Microcytosis 4+ H Ovalocytes 1+ H PT 13.0 H (10.1-12.7) SECONDS INR 1.2 (0.9-1.3) APTT (26.4-36.2) SECONDS Sodium (137-145) mmol/L Potassium (3.4-5.1) mmol/L Chloride (98-107) mmol/L Carbon Dioxide (22-32) mmol/L BUN (7-17) mg/dL Creatinine (0.52-1.04) mg/dL Estimated GFR (>60) mL/min BUN/Creatinine Ratio (6-22) Glucose (80-110) mg/dL Lactate (0.7-2.1) mmol/L Calcium (8.4-10.2) mg/dL Total Bilirubin (0.2-1.3) mg/dL AST (14-36) IU/L ALT (<35) IU/L Alkaline Phosphatase (38-126) U/L Total Creatine Kinase (30-135) U/L CK-MB (CK-2) (<2.37) ng/mL CK-MB (CK-2) Rel Index (1.5-5.0) % Troponin I (0.01-0.034) ng/mL NT-Pro-B Natriuret Pep (<450) pg/mL Total Protein (6.3-8.2) g/dL Albumin (3.5-5.0) g/dL Globulin (1.7-4.1) g/dL Albumin/Globulin Ratio (1.0-2.8) Procalcitonin (<0.5) ng/mL Urine Color Yellow Urine Appearance Clear Urine pH 5.0 (4.5-8.0) Ur Specific [place] 1.020 (1.000-1.035) Urine Protein 1+ H (Negative) Urine Glucose (UA) Negative (Negative) g/dL Urine Ketones Trace H (NEGATIVE) Urine Occult Blood 2+ H (Negative) Urine Nitrate Negative (Negative) Urine Bilirubin Negative (NEGATIVE) Urine Urobilinogen 0.2 (0.2) E.U./dL Ur Leukocyte Esterase Negative (NEGATIVE) Urine RBC 1-5/hpf (0-5/HPF) Urine WBC None seen (0-5/HPF) Urine Bacteria None seen (None) Ur Culture Indicated? Cult not indicated SARS-CoV-2 (PCR) (Negative) 01/29/22 01/29/22 01/29/22 Range/Units 13:14 13:14 13:14 WBC (4.5-11.0) X10^3/uL RBC (4.0-5.2) X10^6/uL Hgb (12.0-16.0) g/dL Hct (36-46) % MCV (80-100) fL MCH (26-34) PG MCHC (30-36) % RDW (11.6-14.8) % Plt Count (150-400) X10^3/uL Neut % (Auto) (50-75) % Lymph % (Auto) (25-40) % [place] % (Auto) (3-14) % Eos % (Auto) (2-4) % Baso % (Auto) (0-2) % Neut # (Auto) (5514-5284) /uL Lymph # (Auto) (2572-2101) /uL [place] # (Auto) (0-900) /uL Eos # (Auto) (0-450) /uL Baso # (Auto) (0-100) /uL RBC Morphology Hypochromasia Poikilocytosis Anisocytosis Microcytosis Ovalocytes PT (10.1-12.7) SECONDS INR (0.9-1.3) APTT 29 (26.4-36.2) SECONDS Sodium 136 L (137-145) mmol/L Potassium 3.2 L (3.4-5.1) mmol/L Chloride 101 (98-107) mmol/L Carbon Dioxide 28 (22-32) mmol/L BUN 36 H (7-17) mg/dL Creatinine 1.33 H (0.52-1.04) mg/dL Estimated GFR 38.2 L (>60) mL/min BUN/Creatinine Ratio 27.1 H (6-22) Glucose 129 H (80-110) mg/dL Lactate 0.8 (0.7-2.1) mmol/L Calcium 9.4 (8.4-10.2) mg/dL Total Bilirubin 0.8 (0.2-1.3) mg/dL AST 34 (14-36) IU/L ALT 22 (<35) IU/L Alkaline Phosphatase 71 (38-126) U/L Total Creatine Kinase 256 H (30-135) U/L CK-MB (CK-2) 4.32 H (<2.37) ng/mL CK-MB (CK-2) Rel Index 1.7 (1.5-5.0) % Troponin I 0.041 H (0.01-0.034) ng/mL NT-Pro-B Natriuret Pep (<450) pg/mL Total Protein 7.6 (6.3-8.2) g/dL Albumin 4.0 (3.5-5.0) g/dL Globulin 3.6 (1.7-4.1) g/dL Albumin/Globulin Ratio 1.1 (1.0-2.8) Procalcitonin 0.29 (<0.5) ng/mL Urine Color Urine Appearance Urine pH (4.5-8.0) Ur Specific [place] (1.000-1.035) Urine Protein (Negative) Urine Glucose (UA) (Negative) g/dL Urine Ketones (NEGATIVE) Urine Occult Blood (Negative) Urine Nitrate (Negative) Urine Bilirubin (NEGATIVE) Urine Urobilinogen (0.2) E.U./dL Ur Leukocyte Esterase (NEGATIVE) Urine RBC (0-5/HPF) Urine WBC (0-5/HPF) Urine Bacteria (None) Ur Culture Indicated? SARS-CoV-2 (PCR) (Negative) 01/29/22 01/29/22 01/29/22 Range/Units 13:37 16:05 16:05 WBC (4.5-11.0) X10^3/uL RBC (4.0-5.2) X10^6/uL Hgb (12.0-16.0) g/dL Hct (36-46) % MCV (80-100) fL MCH (26-34) PG MCHC (30-36) % RDW (11.6-14.8) % Plt Count (150-400) X10^3/uL Neut % (Auto) (50-75) % Lymph % (Auto) (25-40) % [place] % (Auto) (3-14) % Eos % (Auto) (2-4) % Baso % (Auto) (0-2) % Neut # (Auto) (3009-1033) /uL Lymph # (Auto) (3269-4865) /uL [place] # (Auto) (0-900) /uL Eos # (Auto) (0-450) /uL Baso # (Auto) (0-100) /uL RBC Morphology Hypochromasia Poikilocytosis Anisocytosis Microcytosis Ovalocytes PT (10.1-12.7) SECONDS INR (0.9-1.3) APTT (26.4-36.2) SECONDS Sodium (137-145) mmol/L Potassium (3.4-5.1) mmol/L Chloride (98-107) mmol/L Carbon Dioxide (22-32) mmol/L BUN (7-17) mg/dL Creatinine (0.52-1.04) mg/dL Estimated GFR (>60) mL/min BUN/Creatinine Ratio (6-22) Glucose (80-110) mg/dL Lactate (0.7-2.1) mmol/L Calcium (8.4-10.2) mg/dL Total Bilirubin (0.2-1.3) mg/dL AST (14-36) IU/L ALT (<35) IU/L Alkaline Phosphatase (38-126) U/L Total Creatine Kinase (30-135) U/L CK-MB (CK-2) (<2.37) ng/mL CK-MB (CK-2) Rel Index (1.5-5.0) % Troponin I 0.037 H (0.01-0.034) ng/mL NT-Pro-B Natriuret Pep 921 H (<450) pg/mL Total Protein (6.3-8.2) g/dL Albumin (3.5-5.0) g/dL Globulin (1.7-4.1) g/dL Albumin/Globulin Ratio (1.0-2.8) Procalcitonin (<0.5) ng/mL Urine Color Urine Appearance Urine pH (4.5-8.0) Ur Specific [place] (1.000-1.035) Urine Protein (Negative) Urine Glucose (UA) (Negative) g/dL Urine Ketones (NEGATIVE) Urine Occult Blood (Negative) Urine Nitrate (Negative) Urine Bilirubin (NEGATIVE) Urine Urobilinogen (0.2) E.U./dL Ur Leukocyte Esterase (NEGATIVE) Urine RBC (0-5/HPF) Urine WBC (0-5/HPF) Urine Bacteria (None) Ur Culture Indicated? SARS-CoV-2 (PCR) Negative (Negative) Imaging Data CT scan - head: Radiologist's Impression: PROCEDURE:? CT HEAD/BRAIN WO CON ? INDICATIONS:? multiple falls ? TECHNIQUE:? Noncontrast 4.5 mm thick angled axial sections acquired from the foramen magnum to the vertex, with coronal and sagittal reformats.? For radiation dose reduction, the following was used:? automated exposure control, adjustment of mA and/or kV according to patient size.? ? COMPARISON:? [facility], CT, CT CERVICAL SPINE WO CON, 01/29/2022, 13:52. ? FINDINGS:? Image quality:? Excellent.? ? CSF spaces:? Basal cisterns are patent.? No extra-axial fluid collections.? There is moderate cerebral volume loss, with resultant ventricular and sulcal prominence.? ? Brain:? No intracranial hemorrhage, mass, or mass effect.? There are subcortical, periventricular and deep white matter hypodensities consistent with mild to moderate chronic small vessel ischemic changes.? The zafar-white matter junction appears preserved. ?There is intracranial internal carotid artery atherosclerosis.? ? Skull and face:? Calvarium and visualized facial bones demonstrate no definite acute fractures.? There is heterogeneous appearance of the visualized osseous structures ? Sinuses:? Visualized sinuses appear clear.? There is partial fluid opacification in the mastoid air cells suggestive of mastoiditis. ? IMPRESSION:? ? 1. No acute intracranial abnormality. ? 2. Moderate cerebral volume loss and [id number] chronic white matter small vessel ischemic changes. ? 3. Heterogeneous appearance of the visualized osseous structures likely reflect osteopenia.? However, an infiltrative marrow process such as myeloma cannot be excluded.? Recommend correlation clinically.? ? ? Dictated by: Elliot Schultz M.D. on 01/29/2022 at 14:35 ? ? Approved by: Elliot Schultz M.D. on 01/29/2022 at 14:38 ? CT - cervical spine: Radiologist's Impression: PROCEDURE:? CT CERVICAL SPINE WO CON ? INDICATIONS:? falls ? TECHNIQUE:? Noncontrast 3 mm thick sections acquired from the skull base to the T4 level.? Sagittal and coronal reformats were then constructed.? For radiation dose reduction, the following was used:? automated exposure control, adjustment of mA and/or kV according to patient size.? ? COMPARISON:? None. ? FINDINGS:? Image quality:? There is mild motion artifact.? ? Bones:? No fractures or subluxation. There is straightening of the cervical lordosis. There is multilevel degenerative disk disease most prominent at C4-C5 where there is moderate degeneration.? Visualized superior ribs are intact. There is partial fluid opacification of the mastoid air cells suggestive of mastoiditis.? ? Soft tissues:? Prevertebral soft tissues are normal in thickness.? No paravertebral hematomas.? No apical pneumothoraces.? ? IMPRESSION:? ? 1. No fractures or subluxation. ? ? ? Dictated by: Elliot Schultz M.D. on 01/29/2022 at 14:39 ? ? CT scan - chest: Radiologist's Impression: PROCEDURE:? CT CHEST ABD PEL W CON ? INDICATIONS:? bilateral rib pain from falling right groin pain ? TECHNIQUE:? After the administration of intravenous contrast, 5 mm thick sections acquired from the lung apices to the symphysis.? 2.5 mm thick coronal and sagittal reformats were acquired. ?Additional 7 mm thick coronal maximum intensity projection (MIP) reformats acquired through the lungs.? Optional 10-minute delayed imaging may be performed from the kidneys to the bladder.? For radiation dose reduction, the following was used:? automated exposure control, adjustment of mA and/or kV according to patient size.? ? COMPARISON:? CT, CT ABDOMEN PELVIS W CON, 08/15/2019, 11:55. ? FINDINGS:? Image quality:? Excellent.? ? CHEST:? Lungs:? No pulmonary contusions or lacerations.? There is mild dependent atelectasis and scarring.? No acute consolidation.? There is a small pleural base nodule in the left lower lobe measuring up to 0.4 cm on series 3, image 252. No pneumothorax or hemothorax.? Central and peripheral airways appear patent and normal in caliber.? ? Mediastinum:? No mediastinal hematomas.? Heart size is normal.? No pericardial effusion.? Thoracic aorta and pulmonary arteries demonstrate normal size and enhancement.? No mediastinal or hilar adenopathy.? Esophagus is normal in caliber.? There is a small hiatal hernia.? ? Chest wall:? No rib fractures.? No subcutaneous emphysema.? No axillary or supraclavicular adenopathy.? There are bilateral breast implants with curvilinear density in the left implant capsule consistent with left intracapsular implant rupture.? Min multiple heterogeneous masslike densities are demonstrated in the breasts bilaterally with associated coarse calcifications.? Thyroid demonstrates no discrete nodules. ? ? ABDOMEN:? Solid organs:? Liver is normal in size and enhancement, without lacerations.? Gallbladder appears within normal limits without calcified gallstones.? Biliary system is non-dilated.? Pancreas enhances normally, without transection.? Spleen is normal in size and enhancement, without lacerations.? No adrenal hematomas.? Kidneys demonstrate no hydronephrosis.? There are bilateral hypodense small foci in the kidneys which are too small to characterize but likely represent cysts.? ? Peritoneum and bowel:? No free fluid or air.? Small and large bowel loops demonstrate normal wall thickness and caliber.? There is colonic diverticulosis without acute diverticulitis.? ? Nodes and vessels:? No retroperitoneal or mesenteric adenopathy.? Aorta and inferior vena cava are normal in size and enhancement.? ? Miscellaneous:? No ventral hernias.? ? ? PELVIS:? Genitourinary:? Bladder wall thickness is normal.? ? Miscellaneous:? No inguinal hernias or adenopathy.? ? Bones:? No displaced rib fractures identified.? There is a mild superior endplate compression deformity of the T6 vertebral body of indeterminate acuity with mild loss of height centrally of up to approximately 25%.? There is grade 1 anterolisthesis at L4-5.? Moderate to severe facet arthropathy demonstrated in the lower lumbar spine.? Pelvic ring and hip joints appear intact.? ? IMPRESSION:? ? 1. Mild superior endplate compression deformity in the T6 vertebral body of indeterminate acuity.? No retropulsed bony fragments.? ? 2. Elsewhere, no definite acute traumatic abnormality in the chest, abdomen, or pelvis. ? 3. Left intracapsular breast implant rupture. ? 4. Bilateral partially calcified masslike densities within breasts of indeterminate etiology.? Recommend correlation with clinical exam and mammography if indicated.? Dictated by: Elliot Schultz M.D. on 01/29/2022 at 14:52 ? ? ECG Data Interpretation: Normal sinus rhythm rate 115 p.r. interval 152 QRS [address] changes, MDM Narrative Medical decision making narrative: The patient got up to ambulate to use the restroom she was hypoxic short of breath with O2 of 84% very unsteady requiring assistance. Her scans do not show any abnormality, she was not specifically scan for pulmonary embolism. BNP is mildly elevated at 900 with no prior history of congestive heart failure but indeterminate troponins that are trending downward and no EKG changes. Creatinine mildly elevated at 1.3 potassium slightly low at 3.2. At this time patient will be admitted for COPD exacerbation and possible CHF she is given a dose of Lasix. She certainly is hypoxic with falling. Dr. Gould updated patient's symptoms test results and agrees with admission. With any sort of movement like getting up to the commode patient's heart rate increases she seems very unsteady. Discharge Plan Departure Patient Disposition: Admitted As Inpatient Clinical Impression: Hypoxemia, COPD (chronic obstructive pulmonary disease), Fall Admit Date/Time: 01/29/22 17:42 Admit Provider: Ignacia Gould
--- NOTE | 2022-01-29 12:46 | PC.NURSE ---
straight cath. done. pt tolerated procedure well. 20 cc of clear yellow urine.
[2022-01-29 12:54] LABS: Appearance Urine UA CLEAR; Bilirubin Urine UA NEGATIVE (NEGATIVE); Color Urine UA YELLOW; Glucose Urine UA NEGATIVE (Negative); Ketones Urine UA TRACE (NEGATIVE); Leukocyte Esterase Urine UA NEGATIVE (NEGATIVE); Nitrite Urine UA NEGATIVE (Negative); Occult Blood Urine UA 2+ (Negative); Protein Urine UA 1+ (Negative); Urobilinogen Urine UA 0.2 E.U./dL (0.2)
[2022-01-29 13:21] LABS: Bacteria Urine None Seen; Culture Indicated Urine Cult Not Indicated; RBC Urine 1-5/HPF (0-5/HPF); WBC Urine None Seen (0-5/HPF)
[2022-01-29 13:39] LABS: PTT Partial Thromboplastin Tim 29 SECONDS (26.4-36.2)
[2022-01-29 13:42] LABS: Alanine Aminotransferase 22 IU/L (<35); Albumin Globulin Ratio 1.1 (1.0-2.8); Alkaline Phosphatase 71 U/L (38-126); Aspartate Aminotransferase 34 IU/L (14-36); BUN Creatinine Ratio 27.1 (6-22); Bilirubin Total 0.8 mg/dL (0.2-1.3); Blood Urea Nitrogen 36 mg/dL (7-17); Calcium 9.4 mg/dL (8.4-10.2); Carbon Dioxide 28 mmol/L (22-32); Chloride 101 mmol/L (98-107); Creatine Kinase 256 U/L (30-135); Estimated Glomerular Filt Rate 38.2 mL/min (>60); Globulin 3.6 g/dL (1.7-4.1); Glucose 129 mg/dL (80-110); HEMOLYSIS < 15 (0-50); Lactate (Lactic Acid) 0.8 mmol/L (0.7-2.1); Potassium 3.2 mmol/L (3.4-5.1); Sodium 136 mmol/L (137-145); Total Protein 7.6 g/dL (6.3-8.2)
[2022-01-29 13:48] LABS: Add Manual Diff / Slide Review NO; Basophils Absolute Auto 0 /uL (0-100); Basophils Percent Auto 0.6 % (0-2); Eosinophils Absolute Auto 0 /uL (0-450); Eosinophils Percent Auto 0.1 % (2-4); Hematocrit 32.8 % (36-46); Hemoglobin 10.1 g/dL (12.0-16.0); Lymphocytes Absolute Auto 1600 /uL (1100-4500); Mean Corpuscular HGB Conc 30.9 % (30-36); Mean Corpuscular Hemoglobin 16.3 PG (26-34); Mean Corpuscular Volume 52.7 fL (80-100); Monocytes Absolute Auto 800 /uL (0-900); Monocytes Percent Auto 19.2 % (3-14); Neutrophils Absolute Auto 1800 /uL (1500-7000); Neutrophils Percent Auto 43.1 % (50-75); Platelet Count 111 X10^3/uL (150-400); Red Blood Cell Count 6.23 X10^6/uL (4.0-5.2); Red Cell Distribution Width 17.3 % (11.6-14.8); White Blood Cell Count 4.2 X10^3/uL (4.5-11.0)
[2022-01-29 13:49] LABS: Anisocytosis 1+; Hypochromasia 1+; Microcytosis 4+; Poikilocytosis 2+
[2022-01-29 13:50] LABS: INR 1.2 (0.9-1.3); Ovalocytes 1+
[2022-01-29 13:54] LABS: Troponin I 0.041 ng/mL (0.01-0.034)
[2022-01-29 13:57] LABS: CKMB % Relative Index 1.7 % (1.5-5.0); Creatine Kinase MB 4.32 ng/mL (<2.37)
[2022-01-29 13:58] LABS: Procalcitonin 0.29 ng/mL (<0.5)
[2022-01-29 14:01] LABS: COVID19 -Nasal RAPID Negative (Negative)
--- NOTE | 2022-01-29 16:18 | PC.NURSE ---
Ambulated patient to the bathroom. She was pushing her walker one way and trying to walk another way. This seemed to frustrate patient. When this ENTRY LEVEL AUTOMOTIVE TECHNICIAN and patient made it to the bathroom, patient appeared to be wheezing. This ENTRY LEVEL AUTOMOTIVE TECHNICIAN asked patient if she wears oxygen at home to which she replied yes. This ENTRY LEVEL AUTOMOTIVE TECHNICIAN asked if she is normally on 2 L and patient answered yes. This ENTRY LEVEL AUTOMOTIVE TECHNICIAN checked patients sats and she was at 84% oxygen. This ENTRY LEVEL AUTOMOTIVE TECHNICIAN immediately fetched and applied oxygen to patient. Patient's breathing improved and oxygen went up to 94%. Patient made it back to room and in bed. Ambulation trial reported to RN and
[2022-01-29] MEDS: ALBUTEROL/IPRATROPIUM 3 ML AMPUL INH (16:31)
--- NOTE | 2022-01-29 16:36 | PT-IP ANOTE ---
Received message regarding PT eval order or pt from ER. Reviewed EMR and checked down with ER nurse. stated that they will admit pt today due to decrease O2 sat. PT eval deferred until pt is on acute floor. nurse agreed.
[2022-01-29 16:46] LABS: NT-proBNP (BNP-Adult 18+) 921 pg/mL (<450)
[2022-01-29 16:49] LABS: Troponin I 0.037 ng/mL (0.01-0.034)
[2022-01-29] MEDS: methylPREDNISolone 125 MG/2 ML VIAL IV (16:59)
[2022-01-29] MEDS: FUROSEMIDE 40 MG/4 ML VIAL 20 MG IV (18:14)
--- NOTE | 2022-01-29 22:01 | P.HP_ITS ---
History of Present Illness History of Present Illness Date Patient Seen: 01/29/22 Time Patient Seen: 21:00 Chief complaint: fall Narrative: Pt with recent hx of admission to [facility] for repeated falls presents s/p multiple falls at home she is COPD with prn O2 at baseline, here she is desatting quite easy on exertion with elevated BNP. She is between PCPs shlomo engle lives alone on [facility]. Feels ok today but Everything hurts if I move it s/p negative fracture workup complains of sore throat x3 days. Patient History Medical History C. difficile colitis Controlled depression (05/29/16) COPD (chronic obstructive pulmonary disease) Hypokalemia Rheumatoid arthritis with positive rheumatoid factor (10/01/16) Surgical History Status post delivery Family & Social History Family History Sister Age: 85 Hypertension Social History: household members none Prior Living Arrangements House Safety & Behavioral: Feels Safe in Current Yes Environment Been Physically Hurt or No Threatened By a Person Suicidal Ideation Description None Suicide Plan Description No Plan Tobacco & Substance use: Tobacco type cigarettes Smoking Status Former smoker alcohol intake current alcohol intake frequency 0-2 drinks per day Substance Use Type does not use Meds Home Medications and Allergies Home Medications Medication Instructions Recorded Confirmed Type fluticasone fur. 100 mcg-umeclid 1 inh INHALATION DAILY 06/18/21 01/29/22 History 62.5 mcg-vilant 25 mcg inhalat.powder (Trelegy Ellipta) tiotropium bromide 18 mcg capsule 1 cap INHALATION DAILY 06/18/21 01/29/22 History with inhalation device (Spiriva with HandiHaler) leflunomide 20 mg tablet 20 mg PO DAILY 06/19/21 01/29/22 History triamterene 37.5 1 tab PO QDAY #90 tab 09/26/21 01/29/22 Rx mg-hydrochlorothiazide 25 mg tablet metoprolol succinate 25 mg 25 mg PO DAILY 11/07/21 01/29/22 History tablet,extended release 24 hr fluoxetine 40 mg capsule See Rx Instructions .ROUTE 01/10/22 01/29/22 Rx .COMPLEX #90 cap nitrofurantoin macrocrystal 50 mg See Rx Instructions .ROUTE 01/10/22 01/29/22 Rx capsule .COMPLEX #90 cap Allergies Allergy/AdvReac Type Severity Reaction Status Date / Time codeine [CODEINE] Allergy Mild N & V Verified 11/07/21 15:24 Penicillins [PENICILLINS] Allergy Mild RASH Verified 11/07/21 15:24 hydrocodone Allergy Unknown Verified 11/07/21 15:24 oxycodone Allergy Unknown Verified 11/07/21 15:24 sulfamethoxazole Allergy Unknown Verified 11/07/21 15:24 [From Bactrim] trimethoprim [From Bactrim] Allergy Unknown Verified 11/07/21 15:24 Review of Systems Review of Systems Narrative: all systems reviewed and negative except as otherwise documented in HPI. Exam Vital Signs (past 8 hours): - 01/29/22 14:05 01/29/22 14:06 01/29/22 14:15 Temperature Pulse Rate 111 H 110 H 105 H Respiratory Rate 32 H 30 H Blood Pressure 173/83 H 155/74 H Pulse Oximetry 100 100 100 01/29/22 14:30 01/29/22 14:31 01/29/22 14:45 Temperature Pulse Rate 104 H 104 H 101 H Respiratory Rate 27 H 26 H 26 H Blood Pressure 146/67 H 133/61 Pulse Oximetry 100 100 100 01/29/22 15:00 01/29/22 15:15 01/29/22 15:30 Temperature Pulse Rate 101 H 101 H 102 H Respiratory Rate 28 H 41 H 31 H Blood Pressure 132/64 132/64 146/64 H Pulse Oximetry 100 100 100 01/29/22 16:00 01/29/22 16:01 01/29/22 16:16 Temperature Pulse Rate 133 H 129 H 118 H Respiratory Rate 33 H 35 H Blood Pressure 198/91 H 130/65 Pulse Oximetry 84 L 94 98 01/29/22 16:30 01/29/22 16:31 01/29/22 17:00 Temperature Pulse Rate 111 H 103 H 110 H Respiratory Rate 47 H 20 33 H Blood Pressure 132/63 Pulse Oximetry 97 98 96 01/29/22 17:30 01/29/22 18:00 01/29/22 18:01 Temperature Pulse Rate 116 H 120 H 121 H Respiratory Rate 46 H 33 H 33 H Blood Pressure 132/64 151/70 H 134/63 Pulse Oximetry 96 96 96 01/29/22 18:57 Temperature 99.0 F Pulse Rate 113 H Respiratory Rate 18 Blood Pressure 150/83 H Pulse Oximetry 100 Oxygen Delivery Method Nasal Cannula Oxygen Flow Rate 2 Narrative Exam Narrative: slender alert elder female lying in bed [facility] Other: normocephalic no cervical lymphadenopathy normal oropharynx Resp Other: speaking in full sentences at rest with 2L o2 via NC generally clear to auscultation bilaterally Cardio Other: regular rate and rhythm s1/s2 GI Other: soft normal bowel sounds Skin General: no rashes or lesions noted Neuro General: patient alert, patient awake, patient oriented x3 and CN's II-XI intact bilaterally Extrem General: normal to inspection and no pedal edema Psych Appearance: grossly normal Other: quite talkative and interactive Objective Labs Result Diagrams: 01/29/22 13:14 01/29/22 13:14 Labs: Laboratory Results - last 24 hr 01/29/22 01/29/22 01/29/22 12:30 13:14 13:14 WBC 4.2 L RBC 6.23 H Hgb 10.1 L Hct 32.8 L MCV 52.7 L MCH 16.3 L MCHC 30.9 RDW 17.3 H Plt Count 111 L Neut % (Auto) 43.1 L Lymph % (Auto) 37.0 [place] % (Auto) 19.2 H Eos % (Auto) 0.1 L Baso % (Auto) 0.6 Neut # (Auto) 1800 Lymph # (Auto) 1600 [place] # (Auto) 800 Eos # (Auto) 0 Baso # (Auto) 0 RBC Morphology See below Hypochromasia 1+ H Poikilocytosis 2+ H Anisocytosis 1+ H Microcytosis 4+ H Ovalocytes 1+ H PT 13.0 H INR 1.2 APTT Sodium Potassium Chloride Carbon Dioxide BUN Creatinine Estimated GFR BUN/Creatinine Ratio Glucose Lactate Calcium Total Bilirubin AST ALT Alkaline Phosphatase Total Creatine Kinase CK-MB (CK-2) CK-MB (CK-2) Rel Index Troponin I NT-Pro-B Natriuret Pep Total Protein Albumin Globulin Albumin/Globulin Ratio Procalcitonin Urine Color Yellow Urine Appearance Clear Urine pH 5.0 Ur Specific [place] 1.020 Urine Protein 1+ H Urine Glucose (UA) Negative Urine Ketones Trace H Urine Occult Blood 2+ H Urine Nitrate Negative Urine Bilirubin Negative Urine Urobilinogen 0.2 Ur Leukocyte Esterase Negative Urine RBC 1-5/hpf Urine WBC None seen Urine Bacteria None seen Ur Culture Indicated? Cult not indicated SARS-CoV-2 (PCR) 01/29/22 01/29/22 01/29/22 13:14 13:14 13:14 WBC RBC Hgb Hct MCV MCH MCHC RDW Plt Count Neut % (Auto) Lymph % (Auto) [place] % (Auto) Eos % (Auto) Baso % (Auto) Neut # (Auto) Lymph # (Auto) [place] # (Auto) Eos # (Auto) Baso # (Auto) RBC Morphology Hypochromasia Poikilocytosis Anisocytosis Microcytosis Ovalocytes PT INR APTT 29 Sodium 136 L Potassium 3.2 L Chloride 101 Carbon Dioxide 28 BUN 36 H Creatinine 1.33 H Estimated GFR 38.2 L BUN/Creatinine Ratio 27.1 H Glucose 129 H Lactate 0.8 Calcium 9.4 Total Bilirubin 0.8 AST 34 ALT 22 Alkaline Phosphatase 71 Total Creatine Kinase 256 H CK-MB (CK-2) 4.32 H CK-MB (CK-2) Rel Index 1.7 Troponin I 0.041 H NT-Pro-B Natriuret Pep Total Protein 7.6 Albumin 4.0 Globulin 3.6 Albumin/Globulin Ratio 1.1 Procalcitonin 0.29 Urine Color Urine Appearance Urine pH Ur Specific [place] Urine Protein Urine Glucose (UA) Urine Ketones Urine Occult Blood Urine Nitrate Urine Bilirubin Urine Urobilinogen Ur Leukocyte Esterase Urine RBC Urine WBC Urine Bacteria Ur Culture Indicated? SARS-CoV-2 (PCR) 01/29/22 01/29/22 01/29/22 13:37 16:05 16:05 WBC RBC Hgb Hct MCV MCH MCHC RDW Plt Count Neut % (Auto) Lymph % (Auto) [place] % (Auto) Eos % (Auto) Baso % (Auto) Neut # (Auto) Lymph # (Auto) [place] # (Auto) Eos # (Auto) Baso # (Auto) RBC Morphology Hypochromasia Poikilocytosis Anisocytosis Microcytosis Ovalocytes PT INR APTT Sodium Potassium Chloride Carbon Dioxide BUN Creatinine Estimated GFR BUN/Creatinine Ratio Glucose Lactate Calcium Total Bilirubin AST ALT Alkaline Phosphatase Total Creatine Kinase CK-MB (CK-2) CK-MB (CK-2) Rel Index Troponin I 0.037 H NT-Pro-B Natriuret Pep 921 H Total Protein Albumin Globulin Albumin/Globulin Ratio Procalcitonin Urine Color Urine Appearance Urine pH Ur Specific [place] Urine Protein Urine Glucose (UA) Urine Ketones Urine Occult Blood Urine Nitrate Urine Bilirubin Urine Urobilinogen Ur Leukocyte Esterase Urine RBC Urine WBC Urine Bacteria Ur Culture Indicated? SARS-CoV-2 (PCR) Negative Assessment & Plan Assessment & Plan narrative: #repeated falls without evident fracture, ground level needs PT/OT eval for safe discharge planning. no fractures. yet. #heart failure, unknown diastolic vs systolic, present on admission BNP 900 gentle diuresis 20mg lasix qd #COPD exacerbation duonebs with supp O2 #pancytopenia #hypochromic microcytic anemia severely microcytic MCV 52 with MCH also quite low 16 pt states she's always anemic but under 10 is unusually so for her microcytosis does seem to be consistent issue suspect thalassemia continue to monitor ferritin pending #thyrombocytopenia mild 111 trend #neutropenia mild WBCs 4.2 trend and monitor #acute renal failure present on admission GFR 38, Cr 1.3, will balance gentle IVF vs diuresis #hypokalemia mild 3.2 will supplement PO and monitor #sore throat no cervical lymphadenopathy no leukocytosis will symptomatic treat for now #major depression single episode moderate present on admission stable continue home fluoxetine #essential hypertension present on admission continue home regimen three agents with prns available for SBP >160 Code: DNR MDM: sister DVT: Lovenox FALL RISK diet: heart healthy Time Spent With Patient Critical Care time: I spent a total of [] minutes of critical care time on this patient's care today; this time is exclusive of procedural time. Quality VTE Deep Vein Thrombosis/Pulmonary Embolism Present on Admission: No
[2022-01-29] MEDS: BENZOCAINE/MENTHOL 1 LOZ PKT 1 EACH PO (22:18)
[2022-01-29] MEDS: ONDANSETRON 4 MG/2 ML INJ IV (22:18)
[2022-01-29] MEDS: HYDROCODONE/ACET 10/325 TABLET 1 TAB PO (22:18)
[2022-01-29] MEDS: SODIUM CHLORIDE 0.45% 1,000 ML 42 ML IV (22:47)
[2022-01-29] MEDS: POTASSIUM CHLORIDE 20 MEQ TAB 40 MEQ PO (22:47)
[2022-01-30] VITALS (11 sets, daily range): BP systolic 100–145; BP diastolic 45–87; PULSE 80–112; RESP 16–18; TEMP 36.1–37.1; O2SAT 94–98
[2022-01-30] MEDS: PANTOPRAZOLE DR 20 MG TABLET PO (06:04)
[2022-01-30 07:16] LABS: Hematocrit 33.2 % (36-46); Hemoglobin 10.2 g/dL (12.0-16.0); Mean Corpuscular HGB Conc 30.8 % (30-36); Mean Corpuscular Hemoglobin 16.3 PG (26-34); Mean Corpuscular Volume 52.9 fL (80-100); Platelet Count 126 X10^3/uL (150-400); Red Blood Cell Count 6.29 X10^6/uL (4.0-5.2); Red Cell Distribution Width 17.9 % (11.6-14.8); White Blood Cell Count 3.7 X10^3/uL (4.5-11.0)
[2022-01-30 07:17] LABS: Add Manual Diff / Slide Review YES
[2022-01-30 07:29] LABS: Alanine Aminotransferase 23 IU/L (<35); Albumin 4.2 g/dL (3.5-5.0); Albumin Globulin Ratio 1.1 (1.0-2.8); Alkaline Phosphatase 72 U/L (38-126); Aspartate Aminotransferase 32 IU/L (14-36); BUN Creatinine Ratio 27.3 (6-22); Bilirubin Total 0.7 mg/dL (0.2-1.3); Blood Urea Nitrogen 38 mg/dL (7-17); Calcium 9.5 mg/dL (8.4-10.2); Carbon Dioxide 30 mmol/L (22-32); Chloride 101 mmol/L (98-107); Estimated Glomerular Filt Rate 36.3 mL/min (>60); Globulin 3.8 g/dL (1.7-4.1); Glucose 175 mg/dL (80-110); HEMOLYSIS < 15 (0-50); Potassium 4.4 mmol/L (3.4-5.1); Sodium 140 mmol/L (137-145)
[2022-01-30 07:37] LABS: Microcytosis 3+; Neutrophils Absolute Manual 2442 /uL (3000-5900); Total Cells Counted 100
[2022-01-30 07:38] LABS: Hypochromasia 2+; Target Cells 1+
[2022-01-30 08:09] LABS: Ferritin 355 ng/mL (11-264)
[2022-01-30] MEDS: FLUoxetine 20 MG CAPSULE PO (08:39)
[2022-01-30] MEDS: DOCUSATE 100 MG CAPSULE PO ×2 (08:39→21:51)
[2022-01-30] MEDS: POTASSIUM CHLORIDE 20 MEQ TAB 40 MEQ PO (08:39)
[2022-01-30] MEDS: METOPROLOL ER 25 MG TABLET PO (08:40)
[2022-01-30] MEDS: TRIAMTERENE/HCTZ 37.5/25 CAPSULE 1 CAP PO (08:40)
[2022-01-30] MEDS: LEFLUNOMIDE 20 MG TABLET PO (08:43)
[2022-01-30] MEDS: FUROSEMIDE 20 MG/2 ML VIAL IV (08:45)
[2022-01-30] MEDS: IPRATROPIUM 0.5 MG/2.5 ML NEB INH ×2 (08:47→16:10)
[2022-01-30] MEDS: HYDROCODONE/ACET 10/325 TABLET 1 TAB PO (12:22)
--- NOTE | 2022-01-30 13:56 | DI.MRI.S_ITS ---
PROCEDURE: MR HEAD/BRAIN WO CON INDICATIONS: freq falls r/o stroke TECHNIQUE: Non-contrast axial T1 spin echo, axial T2 fast spin echo, sagittal and axial FLAIR, coronal T2 fast spin echo, axial gradient echo, axial diffusion and ADC through the brain. COMPARISON: [facility], CT, CT HEAD/BRAIN WO CON, 01/29/2022, 13:52. FINDINGS: Image quality: Motion is present limiting areas of fine detail evaluation on multiple sequences. CSF spaces: Ventricles appear symmetric in size and shape. Basal cisterns are patent. No extra-axial fluid collections. Brain: No intracranial bleeds or mass effects. There is cerebral volume loss for age. There are periventricular and deep white matter chronic small vessel ischemic changes. Brainstem appears normal. Diffusion-weighted images show no acute ischemic insults. No chronic ischemic insults. Normal intravascular flow voids are present. Skull and face: Calvarial bone marrow is normal in signal. Orbits are normal. Sinuses: Sinuses are clear. Fluid is present within the mastoid air cells bilaterally. IMPRESSION: 1. No acute intracranial process. 2. Moderate atrophy and chronic microvascular ischemic changes. 3. Fluid is present within the mastoid air cells. Recommend correlation to symptoms of mastoiditis. Dictated by: Tori Lira M.D. on 01/31/2022 at 11:59 Approved by: Tori Lira M.D. on 01/31/2022 at 12:04
--- NOTE | 2022-01-30 13:59 | P.PN_ITS ---
Subjective Subjective Date Patient Seen: 01/30/22 Interval history: 81-year-old female with a history of COPD who uses oxygen intermittently, hypertension, who presents to the hospital after multiple falls. The patient reports that she just loses her balance. She will either fall backwards or fall to the side. She denies any lightheaded did miss or dizziness prior to her fall. She has had no weakness in her upper or lower extremities except when she fall she is unable to get up. The patient has had 2 recent hospitalizations for frequent falls. Exam Vital Signs (past 8 hours): - 01/30/22 07:30 01/30/22 08:40 01/30/22 08:48 Temperature 97.0 F L Pulse Rate 90 92 H 112 H Respiratory Rate 18 16 Blood Pressure 145/68 H 145/68 H Pulse Oximetry 98 94 Oxygen Delivery Method Nasal Cannula Oxygen Flow Rate 2.5 Narrative Exam Narrative: Pleasant female lying in bed in no obvious distress Resp Other: Lungs decreased breath sounds but clear to auscultation Cardio Other: Cardiac exam: Regular rate and rhythm normal S1-S2 GI Other: Abdomen: Soft nontender nondistended Extrem Other: no edema Objective Labs Result Diagrams: 01/30/22 06:37 01/30/22 06:37 Labs: Laboratory Results - last 24 hr 01/29/22 01/29/22 01/29/22 13:14 13:37 16:05 WBC RBC Hgb Hct MCV MCH MCHC RDW Plt Count Neut % (Auto) Lymph % (Auto) [place] % (Auto) Eos % (Auto) Baso % (Auto) Lymph # (Auto) [place] # (Auto) Baso # (Auto) Total Counted Seg Neutrophils % Band Neutrophils % Lymphocytes % (Manual) Monocytes % (Manual) Metamyelocytes % Neutrophils # (Manual) RBC Morphology Hypochromasia Microcytosis Target Cells Sodium Potassium Chloride Carbon Dioxide BUN Creatinine Estimated GFR BUN/Creatinine Ratio Glucose Calcium Ferritin Total Bilirubin AST ALT Alkaline Phosphatase Troponin I 0.037 H NT-Pro-B Natriuret Pep Total Protein Albumin Globulin Albumin/Globulin Ratio Procalcitonin 0.29 SARS-CoV-2 (PCR) Negative 01/29/22 01/30/22 01/30/22 16:05 06:37 06:37 WBC 3.7 L RBC 6.29 H Hgb 10.2 L Hct 33.2 L MCV 52.9 L MCH 16.3 L MCHC 30.8 RDW 17.9 H Plt Count 126 L Neut % (Auto) Not Reportable Lymph % (Auto) Not Reportable [place] % (Auto) Not Reportable Eos % (Auto) Not Reportable Baso % (Auto) Not Reportable Lymph # (Auto) Not Reportable [place] # (Auto) Not Reportable Baso # (Auto) Not Reportable Total Counted 100 Seg Neutrophils % 52.0 Band Neutrophils % 14.0 H Lymphocytes % (Manual) 25.0 Monocytes % (Manual) 8.0 Metamyelocytes % 1.0 H Neutrophils # (Manual) 2442 L RBC Morphology Not Reportable Hypochromasia 2+ H Microcytosis 3+ H Target Cells 1+ H Sodium 140 Potassium 4.4 D Chloride 101 Carbon Dioxide 30 BUN 38 H Creatinine 1.39 H Estimated GFR 36.3 L BUN/Creatinine Ratio 27.3 H Glucose 175 H Calcium 9.5 Ferritin Total Bilirubin 0.7 AST 32 ALT 23 Alkaline Phosphatase 72 Troponin I NT-Pro-B Natriuret Pep 921 H Total Protein 8.0 Albumin 4.2 Globulin 3.8 Albumin/Globulin Ratio 1.1 Procalcitonin SARS-CoV-2 (PCR) 01/30/22 06:37 WBC RBC Hgb Hct MCV MCH MCHC RDW Plt Count Neut % (Auto) Lymph % (Auto) [place] % (Auto) Eos % (Auto) Baso % (Auto) Lymph # (Auto) [place] # (Auto) Baso # (Auto) Total Counted Seg Neutrophils % Band Neutrophils % Lymphocytes % (Manual) Monocytes % (Manual) Metamyelocytes % Neutrophils # (Manual) RBC Morphology Hypochromasia Microcytosis Target Cells Sodium Potassium Chloride Carbon Dioxide BUN Creatinine Estimated GFR BUN/Creatinine Ratio Glucose Calcium Ferritin 355 H Total Bilirubin AST ALT Alkaline Phosphatase Troponin I NT-Pro-B Natriuret Pep Total Protein Albumin Globulin Albumin/Globulin Ratio Procalcitonin SARS-CoV-2 (PCR) [facility] Medical History C. difficile colitis Controlled depression (05/29/16) COPD (chronic obstructive pulmonary disease) Hypokalemia Rheumatoid arthritis with positive rheumatoid factor (10/01/16) Surgical History Status post delivery Family History Sister Age: 85 Hypertension Social History household members: none Smoking Status: Former smoker alcohol intake: current Assessment & Plan Assessment & Plan narrative: 81-year-old female admitted to the hospital after frequent falls. Patient states she just loses her balance. She is hypertensive, also with a significant hypochromic anemia, also with mild TRACEY * Given the significant falls a will obtain a head MRI to rule out a stroke * Continue with PT OT consultation * Will obtain orthostatic blood pressure * Will hold her diuretics given her renal insufficiency * Repeat labs in the morning Hypertension * Continue metoprolol COPD * Will perform a home O2 evaluation * Need to determine oxygenation level at rest and with activity * Continue fluticasone * Continue inhalers, Tiotropium, albuterol Hypochromic microcytic anemia * Severe * Will obtain a serum protein electrophoresis, rule out thalassemia, rule out multiple myeloma * Will obtain iron studies as well Depression * Continue present Acute kidney injury * Baseline creatinine is 1.0 * Creatinine today is 1.39 * Will hold diuretics at this time * Will repeat labs in the morning * Patient will be placed on DVT prophylaxis I have utilized all available methods to review update and confirm the patient's current medications Time Spent With Patient Critical Care time: I spent a total of [] minutes of critical care time on this patient's care today; this time is exclusive of procedural time. Quality VTE Deep Vein Thrombosis/Pulmonary Embolism Present on Admission: No
[2022-01-30] MEDS: ALBUTEROL/IPRATROPIUM 3 ML AMPUL INH (14:26)
--- NOTE | 2022-01-30 14:35 | PT.IIE ---
Surgical History (Last Reviewed 01/29/22 @ 22:04 by William Robles MD) Status post delivery Medical History (Last Reviewed 01/29/22 @ 22:04 by William Robles MD) C. difficile colitis Controlled depression (05/29/16) COPD (chronic obstructive pulmonary disease) Hypokalemia Rheumatoid arthritis with positive rheumatoid factor (10/01/16) Physical Therapy Inpatient Evaluation/Re-Eval M1 PT/OT-IP Prior Functional Status Start: 01/30/22 16:45 Freq: NEEDED Status: Active Protocol: Document 01/30/22 14:35 AB (Rec: 01/30/22 17:14 AB [id number]) Medical Review Prior Functional Status Medical History Reviewed Yes Communication able to make nees known Mobility and Gait pt tated that she is indepedent with all mobilities and ambulation without AD but has been using a SPC for ~ 1 week due to falls Prior Functional Level (Other details) pt with h/o fall and pt stated that she had ~ 6 falls for the last week Social History Household Members none Living Arrangements Apartment/Condo Number of Floors (Floors) One Floor Number of Stairs To Enter/Railing? 9 steps B rails to enter her apartment Home Environment Standard Height Toilet,Tub/ Shower Home Equipment Straight Cane,Shower Seat without Backrest,Hand Held Shower,Grab Bars In Shower M2 PT-IP Current Condition Start: 01/30/22 16:45 Freq: NEEDED Status: Active Protocol: Document 01/30/22 14:35 AB (Rec: 01/30/22 17:14 AB [id number]) Physical Therapy Current Condition Current Condition Evaluation Date 01/30/22 Treatment Diagnosis s/p falls; weakness; difficulty in walking Onset Date 01/29/22 M3 PT-IP Subjective Start: 01/30/22 16:45 Freq: NEEDED Status: Active Protocol: Document 01/30/22 14:35 AB (Rec: 01/30/22 17:14 AB [email or web address]) Subjective Physical Therapy Visit Type Type Initial Evaluation Visit Start Time 14:35 Visit Stop Time 15:20 Total Visit Minutes 45 Number of SHEET [employer]SEM[employer]ER Visits 0 Physical Therapy Visit Comments Patient Comments agreeable to do PT Therapy Pain Assessment Pain Present Pain Present Denied Pain M4 PT-IP Mobility and Gait Start: 01/30/22 16:45 Freq: NEEDED Status: Active Protocol: Document 01/30/22 14:35 AB (Rec: 01/30/22 17:14 AB [id number]) PT-Bed Mobility Assessment Supine to Sit Supine to Sit Maximum Assistance,1 Person Assistance,Bedrails Sit to Supine Sit to Supine Moderate Assistance,1 Person Assistance,Bedrails PT-Transfer Assessment Sit to and From Stand Sit to and from Stand Minimal Assistance,1 Person Assistance,Use of Upper Extremities Equipment Transfer Assistive Device Gait Belt,Front Wheeled Walker Orthotic/Prosthetic Devices or Brace: No Comments Mobility Comments pt supine in bed. pt does not have O2 on. pt with h/o falls. BP and O2 sat monitored. BP in supine: 124/62 O2 sat at room air: 92-94%. pt stated that she took O2 off prior to PT and uses O2 as needed at home. Pt completed supine to sit max A and max cues and has to use bed rail to assit. pt was able to sit on EOB SBA. BP checked: 132/ 59 o2 sat 92%. pt sat for ~ 2 more minutes and stated that she is getting dizzy. BP checked: 119/56. O2 sat 92% still at room air. completed sit to stand min A and cues and BP checked again: 111/54 in standing but O2 sat decreased to 83-85%. cued for PLB and O2 sat increased to 94%. after ~ 1-2 min of standing, pt stated that she is getting dizzy again and with shaking. BP: 97/57.. instructed pt to sit back down and rested on EOB. BP checked: 115/64. Pt agreed to ambulate in room. completed ambulation using FWW min A ~ 8 ft with O2 on . pt stated that she feels steady and no dizziness. pt requested to go back to bed. completed sit to supine min A. positioned in bed. call light and table placed within reach. O2 sat with 2L/min O2 maintained 96- 100% informed nurse regarding BP and O2 sat. Gait Assessment Gait Gait Assistance Required: Minimum Assistance,1 Person Assist Distance (Feet) 8 Able to Maintain Weight Bearing Status No During Gait Assistive Devices Assistive Device Gait Belt,Front Wheeled Walker Orthotic/Prosthetic Devices or Brace: No Gait Deviations General Gait Pattern Decreased Stride Length, Decreased Feet Clearance,Step- to Gait Factors Limiting Gait Function Factors Limiting Gait Function Decreased Activity Tolerance, Difficulty Following Directions,Limited Range of Motion,Poor Balance,Poor Safety Awareness,Respiratory Distress PT-Balance Assessment Sitting Balance and Reactions Static Sitting Balance Ability Good Dynamic Sitting Balance Ability Good Standing Balance and Reactions Static Standing Balance Ability Fair Dynamic Standing Balance Ability Fair Device Used FWW M5 PT-IP Objective Assessments Start: 01/30/22 16:45 Freq: NEEDED Status: Active Protocol: Document 01/30/22 14:35 AB (Rec: 01/30/22 17:14 AB [id number]) Orientation Orientation/Cognition Level of Alertness Alert Orientation Name,Situation Language Function Ability No Deficits Noted Safety Awareness Decreased Safety Awareness Memory Description No Deficits Noted Gross Range of Motion Lower Extremity ROM Assessment Within Functional Limits Strength Lower Extremity Strength Assessment Within Functional Limits Coordination Assessment Gross Coordination Gross Coordination WNL Sensation Assessment Sensation Gross Sensation WNL Muscle Tone Muscle Tone WNL Yes M6 PT-IP Treatment Start: 01/30/22 16:45 Freq: NEEDED Status: Active Protocol: Document 01/30/22 14:35 AB (Rec: 01/30/22 17:14 AB [id number]) Physical Therapy Treatment Education Education Provided Safety M7 PT-IP Assessment and Plan Start: 01/30/22 16:45 Freq: NEEDED Status: Active Protocol: Document 01/30/22 14:35 AB (Rec: 01/30/22 17:14 AB [id number]) PT Summary Assessment and Plan Potential Rehabilitation Potential Fair Status of Condition at Evaluation Evolving Summary Impairments Pain,ROM,Strength,Balance, Coordination,Sensation,Tone, Cognition,Bed Mobility, Transfers,Gait,Activity Tolerance Assessment Summary pt requiring max A for bed mobility and min A for ambulation using FWW but only tolerated 8 ft of ambulation. pt has decrease activity tolerance affecting mobility. O2 sat decreased to 83-85% without O2 on but able to maintain 96-100% with O2 on. Pt's BP also decrease down to 97/57 in standing with c/o dizziness and (+) shakiness. Pt lives alone and at this time will need assistance at home. Pt will require SNF rehab at this time but will assess progress during hospital stay. Goals Bed Mobility Goal Independent Transfer Goal Independent,Front Wheeled Walker Gait Goal Independent,Front Wheel Walker Gait Distance 250 Other Goals up/down 9 steps B rails SBA Days to Meet Goals 10 Frequency of Treatment Frequency Of Treatment Once a Day Treatment Plan Physical Therapy Treatment Plan Bed Mobility Training,Transfer Training,Gait Training, Therapeutic Exercise,Balance Retraining,Discharge Planning, Hot or Cold Pack,Neuromuscular Re-ed,Coordination Retraining Precautions Other Precautions O2 sat, BP, falls Recommendations To Nursing Amount of Assist Needed 1 Person Assist Discharge Recommendations PT Discharge Recommendations SNF Rehab Equipment Needed for Home Before FWW Discharge Transportation Needs at Discharge Private Vehicle,Wheelchair/ Cabulance
--- NOTE | 2022-01-30 16:00 | RT ---
PER PT, PT USES HOME O2 AT 2.5 LPM CONTINUOUSLY. HOME O2 EVAL NOT NEEDED.
--- NOTE | 2022-01-30 16:05 | CM.DANOTE ---
DCP Brief Assessment Note Patient is an 81 yo female who was admitted on 01/29/22 for GLF. Pt has MCR for insurance and her PCP is basically at the [facility] as pt is between providers. EMR was reviewed. Per MD, pt with recent stay at [facility] for falls and has COPD and home oxygen at baseline and admitted for weakness and falls again. PT/OT ordered and pending. Pt resides on [facility] and per pt's previous admission a couple years ago may still be living in the lower level of a friend's house but not confirmed yet. SW attempted to meet bedside with pt but could not wake pt up enough for discussion as pt kept drifting off an unable to participate in discussion. SW updated RN. Plan: SW to follow for further PT/OT eval and recommendations and bedside assessment towards determining needs at d/c and if safe to d/c home with maybe [facility] resources and information. KIMBERLI Carrington
--- NOTE | 2022-01-30 17:05 | OT.IP.EVAL ---
Past Medical History (Last Reviewed 01/29/22 @ 22:04 by William Robles MD) C. difficile colitis Controlled depression (05/29/16) COPD (chronic obstructive pulmonary disease) Hypokalemia Rheumatoid arthritis with positive rheumatoid factor (10/01/16) Surgical History (Last Reviewed 01/29/22 @ 22:04 by William Robles MD) Status post delivery Occupational Therapy Inpatient Evaluation/Re-Eval M1 PT/OT-IP Prior Functional Status Start: 01/30/22 16:45 Freq: NEEDED Status: Active Protocol: Document 01/30/22 16:25 [facility] (Rec: 01/30/22 18:49 [facility] [id number]) Medical Review Prior Functional Status Medical History Reviewed Yes Communication able to make needs known Mobility and Gait pt stated that she is independent with all mobilities and ambulation without AD but has been using a SPC for ~ 1 week due to falls Activities of Daily Living and IADL's Pt states has been taking her a long time to do ADL needs and has given up on IADL needs due to her weakness. Prior Functional Level (Other details) pt with h/o fall and pt stated that she had ~ 6 falls for the last week Pt states has been started a diferent medication recently. Social History Household Members none Living Arrangements Apartment/Condo Number of Floors (Floors) One Floor Number of Stairs To Enter/Railing? 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-IP Current Condition Start: 01/30/22 18:33 Freq: Status: Active Protocol: Document 01/30/22 16:25 [facility] (Rec: 01/30/22 18:49 [facility] [id number]) Occupational Therapy Current Condition Current Condition Evaluation Date 01/30/22 Treatment Diagnosis Multiple falls, COPD exacerbation,weakness Diagnosis Onset Date 01/29/22 M3 OT- IP Subjective and Pain Start: 01/30/22 18:33 Freq: Status: Active Protocol: Document 01/30/22 16:25 [facility] (Rec: 01/30/22 18:49 [facility] [id number]) OT- Subjective Occupational Therapy Visit Type Type Initial Evaluation Visit Start Time 16:25 Visit Stop Time 17:05 Total Visit Minutes 40 Notes Able to talk to Dr. Gould regarding pt has a IV board on her right hand which is limiting her ability to move at this time. Occupational Therapy Visit Comments Patient Comments Pt agreeable to get up with OT . Patient/Caregiver Goals Pt wanting to go home. OT Pain Assessment Pain When Pain Assessed At Rest Pain Present Pain Present Pain Reported M4 OT- IP ADL's Start: 01/30/22 18:33 Freq: Status: Active Protocol: Document 01/30/22 16:25 [facility] (Rec: 01/30/22 18:49 [facility] [id number]) OT [id number] Comments OT Self-Feeding Comments Not at meal time. Pt admits to hydrating well in the hospital but not doing so at home. OT ADL-Grooming Comments OT Grooming Comments Not performed. OT ADL-Oral Care Comments Oral Care Comments Not performed. OT ADL-Dressing General Eval Lower Body Dressing Ability Maximum Assistance Comments OT Dressing Comments Not able to do due to right IV board on her hand. OT ADL-Toileting Comments OT Toileting Comments Pt not having to go at this time. M6 OT- IP Functional Cognition Start: 01/30/22 18:33 Freq: Status: Active Protocol: Document 01/30/22 16:25 [facility] (Rec: 01/30/22 18:49 [facility] [id number]) Cognitive Factors Limiting Selfcare Function Cognitive Ability Level of Alertness Alert Patient Orientation Name,Place,Situation Attention Span Ability Capable of Focused Attention, Capable of Sustained Attention Ability to Follow Commands Able to Follow One Step Commands Cognitive Comments Cognitive Assessment Comments Pt a little forgetful and tends to like to joke around a lot. A formal cognitive assessment would be beneficial . Noted occasional word finding difficulties. OT- Vision and Hearing OT- Hearing Assessment OT- Hearing Assessment WFL OT- Vision Assessment Visual Acuity Glasses All The Time M7 OT- IP Mobility and Balance Start: 01/30/22 18:33 Freq: Status: Active Protocol: Document 01/30/22 16:25 [facility] (Rec: 01/30/22 18:49 [facility] [id number]) OT- Bed Mobility Assessment Rolling Type of Rolling Roll to Left Level of Assistance Moderate Assistance Supine to Sit Supine to Sit Assist Moderate Assistance,1 Person Assistance Sit to Supine Sit to Supine Assist Maximum Assistance,1 Person Assistance Scooting Scooting to Edge of Bed Minimal Assistance,1 Person Assistance OT-Transfer Assessment Sit to and From Stand Sit to and from Stand Minimal Assistance Comments Mobility Comments HAL to stand from a high bed. Pt states has a step she steps forward onto and then places her knee up in the bed and turns to get in. Pt states could possibly take the bed box spring off her bed. Pt states she follow log rolling to get out of bed. OT- Balance Assessment Sitting Balance and Reactions Static Sitting Balance Ability Good Dynamic Sitting Balance Ability Fair Standing Balance and Reactions Static Standing Balance Ability Fair M8 OT- IP Objective Assessments Start: 01/30/22 18:33 Freq: Status: Active Protocol: Document 01/30/22 16:25 [facility] (Rec: 01/30/22 18:49 [facility] [id number]) OT Gross Range of Motion Upper Extremity Range of Motion Assessment Right Impaired ROM Impairments Pt complaining of right shoulder pain and limited at end AROM. OT Strength Comments Strength Comments Not able to formally assess but at least 3-/5 as noted from bed mobility needs. M9 OT- IP Assessment and Plan Start: 01/30/22 18:33 Freq: Status: Active Protocol: Document 01/30/22 16:25 [facility] (Rec: 01/30/22 18:49 [facility] [id number]) OT Summary Assessment and Plan Potential Rehabilitation Potential Good Analytic Complexity at Evaluation Moderate Summary OT Impairments Pain,Strength,Balance, Functional Cognition, Functional Mobility,Grooming, Dressing,Toileting,Bathing, Toilet Transfers,Shower Transfers,Activity Tolerance Progress Towards Goals Slow Progress due to Pain,Slow Progress due to Medical Issues,Slow Progress due to Activity Tolerance,Slow Progress due to Cognition Assessment Summary Pt MOD complexity and main barriers are steps, bed mobility and now needing assist for all Adl and mobility needs. Pt would benefit from skilled rehab to improve on her dynamic balance, endurance and independence for needs. Pt's O2 dropped to 84% after bed mobility and after O2 back on 2L within a minute increased to 95%. Goals Grooming Goal Independent Dressing Goal Independent Toileting Goal Independent Bathing Goal Independent Toilet Transfer Goal Independent Shower Transfer Goal Independent Days to Meet Goals 20 Frequency of Treatment Frequency Of Treatment Once a Day Treatment Plan OT Treatment Plan ADL Training,Functional Cognition Training,Functional Mobility,Patient/Family Education,Discharge Planning Other Treatment Recommendations and Next Stand at sink for grooming Treatment Focus needs. Discharge Recommendations OT Discharge Recommendations SNF Rehab Transportation Needs at Discharge Wheelchair/Cabulance
[2022-01-30 17:25] LABS: Hemoglobin A1C% w Est Avg Glu 5.7 % (4.0-6.0)
[2022-01-30] MEDS: ENOXAPARIN 30 MG/0.3 ML SYRINGE SUBCUT (17:53)
[2022-01-30 18:06] LABS: Bilirubin Total 0.6 mg/dL (0.2-1.3); HEMOLYSIS < 15 (0-50); Iron 23 ug/dL (37-170); Lactate Dehydrogenase 363 U/L (313-618)
[2022-01-30 18:16] LABS: Percent Iron Saturation 11 % (15-50); Total Iron Binding Capacity 203 ug/dL (265-497); Transferrin 157 mg/dL (206-381)
[2022-01-31] VITALS (9 sets, daily range): BP systolic 107–152; BP diastolic 45–78; PULSE 74–113; RESP 16–32; TEMP 36.3–37.1; O2SAT 93–99
[2022-01-31] MEDS: SODIUM CHLORIDE 0.45% 1,000 ML 42 ML IV (01:56)
[2022-01-31] MEDS: PANTOPRAZOLE DR 20 MG TABLET PO (05:37)
[2022-01-31 07:36] LABS: Haptoglobin 180 mg/dL (41-333)
[2022-01-31 08:51] LABS: Alanine Aminotransferase 20 IU/L (<35); Albumin 3.5 g/dL (3.5-5.0); Alkaline Phosphatase 68 U/L (38-126); Aspartate Aminotransferase 28 IU/L (14-36); BUN Creatinine Ratio 36.1 (6-22); Bilirubin Total 0.6 mg/dL (0.2-1.3); Blood Urea Nitrogen 44 mg/dL (7-17); Calcium 9.2 mg/dL (8.4-10.2); Carbon Dioxide 31 mmol/L (22-32); Chloride 99 mmol/L (98-107); Estimated Glomerular Filt Rate 42.2 mL/min (>60); Globulin 3.6 g/dL (1.7-4.1); Glucose 92 mg/dL (80-110); HEMOLYSIS < 15 (0-50); Potassium 4.5 mmol/L (3.4-5.1); Sodium 134 mmol/L (137-145); Total Protein 7.1 g/dL (6.3-8.2)
[2022-01-31] MEDS: LEFLUNOMIDE 20 MG TABLET PO (09:16)
[2022-01-31] MEDS: FLUoxetine 20 MG CAPSULE PO (09:16)
[2022-01-31] MEDS: DOCUSATE 100 MG CAPSULE PO ×2 (09:16→20:26)
[2022-01-31 09:38] LABS: Add Manual Diff / Slide Review NO; Basophils Absolute Auto 0 /uL (0-100); Basophils Percent Auto 0.5 % (0-2); Eosinophils Absolute Auto 0 /uL (0-450); Eosinophils Percent Auto 0.7 % (2-4); Hematocrit 31.3 % (36-46); Hemoglobin 9.6 g/dL (12.0-16.0); Lymphocytes Absolute Auto 1800 /uL (1100-4500); Lymphocytes Percent Auto 46.1 % (25-40); Mean Corpuscular HGB Conc 30.6 % (30-36); Mean Corpuscular Hemoglobin 16.2 PG (26-34); Mean Corpuscular Volume 53.1 fL (80-100); Monocytes Absolute Auto 500 /uL (0-900); Monocytes Percent Auto 13.2 % (3-14); Neutrophils Absolute Auto 1500 /uL (1500-7000); Neutrophils Percent Auto 39.5 % (50-75); Platelet Count 119 X10^3/uL (150-400); Red Blood Cell Count 5.89 X10^6/uL (4.0-5.2); Red Cell Distribution Width 17.2 % (11.6-14.8); White Blood Cell Count 3.8 X10^3/uL (4.5-11.0)
[2022-01-31 09:51] LABS: Hypochromasia 2+
[2022-01-31 09:52] LABS: Microcytosis 3+; Target Cells 1+
[2022-01-31] MEDS: ALBUTEROL/IPRATROPIUM 3 ML AMPUL INH ×2 (11:18→15:42)
--- NOTE | 2022-01-31 11:32 | PT.IPTN ---
Physical Therapy Treatment Note M2 PT-IP Current Condition Start: 01/30/22 16:45 Freq: NEEDED Status: Active Protocol: Document 01/30/22 14:35 [facility] (Rec: 01/30/22 17:14 [facility] [id number]) Physical Therapy Current Condition Current Condition Evaluation Date 01/30/22 Treatment Diagnosis s/p falls; weakness; difficulty in walking Onset Date 01/29/22 M3 PT-IP Subjective Start: 01/30/22 16:45 Freq: NEEDED Status: Active Protocol: Document 01/31/22 11:12 [facility] (Rec: 01/31/22 14:39 [facility] [id number]) Subjective Physical Therapy Visit Type Type Treatment Note Visit Start Time 11:12 Visit Stop Time 11:32 Total Visit Minutes 20 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 1 Physical Therapy Visit Comments Patient Comments agreeable to do PT M4 PT-IP Mobility and Gait Start: 01/30/22 16:45 Freq: NEEDED Status: Active Protocol: Document 01/31/22 11:12 [facility] (Rec: 01/31/22 14:39 [facility] [id number]) PT-Bed Mobility Assessment Sit to Supine Sit to Supine Moderate Assistance,1 Person Assistance,Bedrails Scooting Scooting to Edge of Bed Contact Guard Assistance Scooting Up and Down in Bed Maximum Assistance PT-Transfer Assessment Sit to and From Stand Sit to and from Stand Contact Guard Assistance,1 Person Assistance,Use of Upper Extremities Equipment Transfer Assistive Device Gait Belt,Front Wheeled Walker Orthotic/Prosthetic Devices or Brace: No Transfers Transfer Destination Bed Transfer Technique Pt ambulated w/ FWW Transfer Ability Level of Assist Minimal Assistance,Moderate Assistance,1 Person Assistance ,Use of Upper Extremities Comments Mobility Comments Pt ambulating out of bathroom w/ TECHNICAL SERVICES LIBRARIAN upon arrival and agreeable to further ambulation. Pt ambulated ~20 ft around room w/ CGA and 2LO2 and c/o SOB and fatigue and sat down EOB. RT arrived and O2 97%. Pt took seated rest break ~4 min and agreed to another bout of ambulation. RT removed O2 and pt ambulated additional 20 ft w/ FWW and c/ o SOB. O2 94% initially but by the time pt sat back down it was 89%. 2LO2 back on pt. She requested to be done due to fatigue. Mod A for sit<>sup and Max A x2 for scooting up in bed. Gait Assessment Gait Gait Assistance Required: Contact Guard Assist Distance (Feet) 20 Able to Maintain Weight Bearing Status No During Gait Assistive Devices Assistive Device Gait Belt,Front Wheeled Walker Orthotic/Prosthetic Devices or Brace: No Gait Deviations General Gait Pattern Decreased Stride Length, Decreased Feet Clearance,Step- to Gait Factors Limiting Gait Function Factors Limiting Gait Function Decreased Activity Tolerance, Difficulty Following Directions,Limited Range of Motion,Poor Balance,Poor Safety Awareness,Respiratory Distress Comments Gait Comments Pt ambulated 2 bouts of 20 ft w/ 4 min rest break in between and FWW CGA. Decreased stride and foot clearance and SOB. She will require FWW for home use. Stair Climbing Assessment Comments Stair Climbing Comments Not assessed, pt will need to complte 9 steps prior to d/c. PT-Balance Assessment Sitting Balance and Reactions Static Sitting Balance Ability Good Dynamic Sitting Balance Ability Good Standing Balance and Reactions Static Standing Balance Ability Fair Dynamic Standing Balance Ability Fair Device Used FWW M5 PT-IP Objective Assessments Start: 01/30/22 16:45 Freq: NEEDED Status: Active Protocol: Document 01/30/22 14:35 [facility] (Rec: 01/30/22 17:14 AB [id number]) Orientation Orientation/Cognition Level of Alertness Alert Orientation Name,Situation Language Function Ability No Deficits Noted Safety Awareness Decreased Safety Awareness Memory Description No Deficits Noted Gross Range of Motion Lower Extremity ROM Assessment Within Functional Limits Strength Lower Extremity Strength Assessment Within Functional Limits Coordination Assessment Gross Coordination Gross Coordination WNL Sensation Assessment Sensation Gross Sensation WNL Muscle Tone Muscle Tone WNL Yes M6 PT-IP Treatment Start: 01/30/22 16:45 Freq: NEEDED Status: Active Protocol: Document 01/31/22 11:12 [facility] (Rec: 01/31/22 14:39 [facility] [id number]) Physical Therapy Treatment Education Education Provided Safety M7 PT-IP Assessment and Plan Start: 01/30/22 16:45 Freq: NEEDED Status: Active Protocol: Document 01/31/22 11:12 [facility] (Rec: 01/31/22 14:39 [facility] [id number]) PT Summary Assessment and Plan Potential Rehabilitation Potential Fair Status of Condition at Evaluation Evolving Summary Impairments Pain,ROM,Strength,Balance, Coordination,Sensation,Tone, Cognition,Bed Mobility, Transfers,Gait,Activity Tolerance Assessment Summary Pt limited by weakness, SOB, and low tolerance for activity . Able to ambulate ~20 ft x2 w / FWW and w/ 4 min rest break seated EOB between ambulation. Decreased stride and foot clearance and desat to 89% on RA but recovered to mid 90s on 2L O2. She has fallen recently and has not been using AD due to feeling unsafe w/ 4WW. She will require FWW dispensed for home use and she is agreeable to use. If going home, she will need to ascend /descend 9 steps total however she would greatly benefit from SNF to improve as she is a high fall risk. Goals Bed Mobility Goal Independent Transfer Goal Independent,Front Wheeled Walker Gait Goal Independent,Front Wheel Walker Gait Distance 250 Other Goals up/down 9 steps B rails SBA Days to Meet Goals 10 Frequency of Treatment Frequency Of Treatment Once a Day Treatment Plan Physical Therapy Treatment Plan Bed Mobility Training,Transfer Training,Gait Training, Therapeutic Exercise,Balance Retraining,Discharge Planning, Hot or Cold Pack,Neuromuscular Re-ed,Coordination Retraining Precautions Other Precautions O2 sat, BP, falls Recommendations To Nursing Amount of Assist Needed 1 Person Assist Discharge Recommendations PT Discharge Recommendations SNF Rehab Equipment Needed for Home Before FWW Discharge Transportation Needs at Discharge Private Vehicle,Wheelchair/ Cabulance
--- NOTE | 2022-01-31 11:53 | PC.NURSE ---
Addendum entered by Cherelle Brown R.N. 01/31/22 18:17: Patient is feeling better as she is eating her dinner. She has no complaints of pain right now after given tylenol. Addendum entered by Cherelle Brown R.N. 01/31/22 17:47: Patient given 975mg of tylenol, she states that she does not feel well enough to eat right now. Patient is afebrile, will given her lovenox injection soon. Patient is napping. Addendum entered by Cherelle Brown R.N. 01/31/22 12:43: Patient is eating lunch up in the chair. She is a one person assist with walker. Denies any dizziness when ambulating and oxygen is on her. Original Note: Assess- Patient upset that she did not get her breakfast until late, easily calmed. Patients breath sounds with ins/jim wheezes bilaterally throughout lobes. She is on oxygen and sats in the high 90s. Patients tele d/cd as she does not have any iv and will not put another iv in, as she has been poked to often. Patient has multiple bruises on her arms and body from falling so much at home. Her MRI is done, and is awaiting results of this.
--- NOTE | 2022-01-31 14:45 | CM.DPNOTE ---
Addendum entered by KIMBERLI Scott 02/02/22 14:05: ADD: PT continues to recommend SNF. Faxed multiple SNFs Thursday02.01.22 asking if they would consider admitting patient using COVID waiver ? Bertha at [facility] called to accept patient for Thursday using the COVID waiver, which has now been completed and signed by Dr Last. [id number] completed. JW Original Note: DCP Note According to chart review; therapy team recommending SNF. Patient remains observation. Requested that [place] at [facility] H+R review for clinical acceptance and [place] expects [facility] could accept patient if she is able to pay privately with one month deposit down. Will review w/patient; patient may need to discharge home w/[facility] if cannot pay privately for SNF stay JW
--- NOTE | 2022-01-31 14:59 | OT.IPNOTE ---
Went to see pt for OT treatment and pt states too tired. After talking to pt further, pt not able to recall her conversation with the doctor earlier as she thought she was going home tonight versus tomorrow. Able to pass information to the hospitalist that pt unable to recall information form prior conversation.
--- NOTE | 2022-01-31 15:23 | P.PN_ITS ---
Subjective Subjective Date Patient Seen: 01/31/22 Interval history: 81-year-old female with a history of COPD who uses oxygen intermittently, mild to moderate decrease LVEF 40-45%, hypertension, who presents to the hospital after multiple falls.? The patient reports that she just loses her balance. MRI negative for acute CVA. Patient with documented orthostatic hypotension and triamterene HCTZ has been discontinued. She is continued on low-dose metoprolol. She also has chronic hypoxia due to COPD but was using the O2 only at night. Additionally has chronic severe microcytic anemia with iron studies consistent with chronic iron deficiency. Extent of prior workup on known. OT also raises concern for short-term memory impairment. Patient does live alone at home on [facility] [address]. She has limited exertional capacity and gets out of breath walking 20 ft. Exam Vital Signs (past 8 hours): - 01/31/22 09:25 01/31/22 11:23 01/31/22 11:49 Temperature 98.7 F Pulse Rate 80 82 Pulse Rate [Orthostatic Lying] 93 H Pulse Rate [Orthostatic Sitting] 90 Pulse Rate [Orthostatic Standing] 94 H Respiratory Rate 18 32 H Blood Pressure 152/73 H Blood Pressure [Orthostatic Lying] 142/72 H Blood Pressure [Orthostatic Sitting] 136/63 Blood Pressure [Orthostatic Standing] 115/78 Pulse Oximetry 97 94 Oxygen Delivery Method Nasal Cannula Oxygen Flow Rate 2 Narrative Exam Narrative: General: Alert, NAD Lungs: Clear to auscultation Heart: Regular rhythm Extremities: No edema Objective Labs Result Diagrams: 01/31/22 08:50 01/31/22 08:15 Labs: Laboratory Results - last 24 hr 01/30/22 01/30/22 01/30/22 16:48 16:48 16:48 WBC RBC Hgb Hct MCV MCH MCHC RDW Plt Count Neut % (Auto) Lymph % (Auto) [place] % (Auto) Eos % (Auto) Baso % (Auto) Neut # (Auto) Lymph # (Auto) [place] # (Auto) Eos # (Auto) Baso # (Auto) RBC Morphology Hypochromasia Microcytosis Target Cells Haptoglobin Sodium Potassium Chloride Carbon Dioxide BUN Creatinine Estimated GFR BUN/Creatinine Ratio Glucose Hemoglobin A1c Calcium Iron 23 L TIBC 203 L % Saturation 11 L Transferrin 157 L Total Bilirubin 0.6 AST ALT Alkaline Phosphatase Lactate Dehydrogenase 363 Total Protein Albumin Globulin Albumin/Globulin Ratio M-Yo % Cancelled U Protein EP PDF Cancelled Urine Total Protein Cancelled Urine Albumin Cancelled U Sfaab-1-Olzawgby Cancelled U Skqyj-1-Qtexwvjo Cancelled U Beta Globulin Cancelled U Gamma Globulin Cancelled Urine PEP Note Cancelled 01/30/22 01/30/22 01/31/22 16:48 16:48 08:15 WBC RBC Hgb Hct MCV MCH MCHC RDW Plt Count Neut % (Auto) Lymph % (Auto) [place] % (Auto) Eos % (Auto) Baso % (Auto) Neut # (Auto) Lymph # (Auto) [place] # (Auto) Eos # (Auto) Baso # (Auto) RBC Morphology Hypochromasia Microcytosis Target Cells Haptoglobin 180 Sodium 134 L Potassium 4.5 Chloride 99 Carbon Dioxide 31 BUN 44 H Creatinine 1.22 H Estimated GFR 42.2 L BUN/Creatinine Ratio 36.1 H Glucose 92 Hemoglobin A1c 5.7 Calcium 9.2 Iron TIBC % Saturation Transferrin Total Bilirubin 0.6 AST 28 ALT 20 Alkaline Phosphatase 68 Lactate Dehydrogenase Total Protein 7.1 Albumin 3.5 Globulin 3.6 Albumin/Globulin Ratio 1.0 M-Yo % U Protein EP PDF Urine Total Protein Urine Albumin U Oqywu-6-Byxhcbzr U Drong-2-Ezvapdcd U Beta Globulin U Gamma Globulin Urine PEP Note 01/31/22 08:50 WBC 3.8 L RBC 5.89 H Hgb 9.6 L Hct 31.3 L MCV 53.1 L MCH 16.2 L MCHC 30.6 RDW 17.2 H Plt Count 119 L Neut % (Auto) 39.5 L Lymph % (Auto) 46.1 H [place] % (Auto) 13.2 Eos % (Auto) 0.7 L Baso % (Auto) 0.5 Neut # (Auto) 1500 Lymph # (Auto) 1800 [place] # (Auto) 500 Eos # (Auto) 0 Baso # (Auto) 0 RBC Morphology Not Reportable Hypochromasia 2+ H Microcytosis 3+ H Target Cells 1+ H Haptoglobin Sodium Potassium Chloride Carbon Dioxide BUN Creatinine Estimated GFR BUN/Creatinine Ratio Glucose Hemoglobin A1c Calcium Iron TIBC % Saturation Transferrin Total Bilirubin AST ALT Alkaline Phosphatase Lactate Dehydrogenase Total Protein Albumin Globulin Albumin/Globulin Ratio M-Yo % U Protein EP PDF Urine Total Protein Urine Albumin U Jzshq-6-Obtcdmvn U Uguqw-4-Ioixawev U Beta Globulin U Gamma Globulin Urine PEP Note PFSH Medical History C. difficile colitis Controlled depression (05/29/16) COPD (chronic obstructive pulmonary disease) Hypokalemia Rheumatoid arthritis with positive rheumatoid factor (10/01/16) Surgical History Status post delivery Family History Sister Age: 85 Hypertension Social History household members: none Smoking Status: Former smoker alcohol intake: current Assessment & Plan Assessment & Plan narrative: 81-year-old female admitted to the hospital after frequent falls.? Patient states she just loses her balance.? She is hypertensive, also with a significant hypochromic anemia, also with mild TRACEY. 1. Recurrent falls -MRI no stroke -likely multifactorial due to orthostasis, hypoxia and deconditioning -continue PT and OT -ordered standard walker -recheck orthostatics at PT -possible discharge home tomorrow Thursday 2. Chronic microcytic anemia, pancytopenic -iron studies consistent with chronic iron deficiency with FE 23, transferrin% 11, normal haptoglobin, SPEP pending -will inquire from patient if she has had prior workup -avoid aspirin or NSAIDs -consider outpatient hematology evaluation for pancytopenia -patient on leflunomide for RA and daily nitrofurantoin may be depressing WBC and platelets 3. Acute kidney injury, prerenal -stopped patient's triamterene HCT -gentle hydration for 1 more day 4. Chronic systolic heart failure, well compensated -LVEF 40-45% on echo 07/11/2021 -continue metoprolol ER 25 mg q.d. -patient will probably not tolerate afterload reduction 5. Chronic hypoxic respiratory failure due to COPD -negative chest abdomen and pelvis CT -continue O2 2 L NC -continue inhalers -RT home O2 eval 6. Chronic UTI, presumed -continue nitrofurantoin 50 mg at bedtime Time Spent With Patient Critical Care time: I spent a total of [] minutes of critical care time on this patient's care today; this time is exclusive of procedural time. Quality VTE Deep Vein Thrombosis/Pulmonary Embolism Present on Admission: No
[2022-01-31] MEDS: ACETAMINOPHEN 325 MG TABLET 975 MG PO (16:17)
[2022-01-31] MEDS: ENOXAPARIN 30 MG/0.3 ML SYRINGE SUBCUT (18:00)
[2022-01-31] MEDS: HYDROCODONE/ACET 10/325 TABLET 1 TAB PO (20:26)
[2022-02-01] VITALS (7 sets, daily range): BP systolic 97–157; BP diastolic 58–87; PULSE 94–110; RESP 18–20; TEMP 36.3–36.9; O2SAT 90–99
--- NOTE | 2022-02-01 05:16 | PC.NURSE ---
Shift note: Patient was alert and orientedx4, slightly dyspneic on exertion, maintained O2 support by nasal cannula at 2lpm, Afebrile, vital signs within acceptable limits. Patient verbalized right shoulder pain, due pain meds given, verbalized relief and was able to sleep. Patient strongly refused IV reinsertion. Patient uses bedside commode and tolerated activity.
[2022-02-01 05:39] LABS: Add Manual Diff / Slide Review NO; Basophils Absolute Auto 0 /uL (0-100); Basophils Percent Auto 0.2 % (0-2); Eosinophils Absolute Auto 0 /uL (0-450); Eosinophils Percent Auto 0.9 % (2-4); Hematocrit 31.1 % (36-46); Hemoglobin 9.4 g/dL (12.0-16.0); Lymphocytes Absolute Auto 1500 /uL (1100-4500); Mean Corpuscular HGB Conc 30.3 % (30-36); Mean Corpuscular Hemoglobin 16.1 PG (26-34); Mean Corpuscular Volume 53.3 fL (80-100); Monocytes Absolute Auto 500 /uL (0-900); Monocytes Percent Auto 14.4 % (3-14); Neutrophils Absolute Auto 1600 /uL (1500-7000); Neutrophils Percent Auto 42.5 % (50-75); Platelet Count 129 X10^3/uL (150-400); Red Blood Cell Count 5.83 X10^6/uL (4.0-5.2); Red Cell Distribution Width 17.2 % (11.6-14.8); White Blood Cell Count 3.6 X10^3/uL (4.5-11.0)
[2022-02-01] MEDS: PANTOPRAZOLE DR 20 MG TABLET PO (05:50)
[2022-02-01 06:03] LABS: Anisocytosis 1+; Hypochromasia 2+; Microcytosis 3+; Target Cells 1+
[2022-02-01] MEDS: ALBUTEROL/IPRATROPIUM 3 ML AMPUL INH (08:43)
[2022-02-01] MEDS: FLUoxetine 20 MG CAPSULE PO (08:45)
[2022-02-01] MEDS: LEFLUNOMIDE 20 MG TABLET PO (08:45)
[2022-02-01] MEDS: HYDROCODONE/ACET 10/325 TABLET 1 TAB PO ×3 (08:45→21:38)
[2022-02-01] MEDS: DOCUSATE 100 MG CAPSULE PO ×2 (08:45→20:27)
--- NOTE | 2022-02-01 10:43 | OT.IP.TRT ---
Current Diagnoses Chronic obstructive pulmonary disease with (acute) exacerbation (01/29/22) Occupational Therapy Treatment Note M2 OT-IP Current Condition Start: 01/30/22 18:33 Freq: Status: Active Protocol: Document 01/30/22 16:25 [facility] (Rec: 01/30/22 18:49 [facility] [id number]) Occupational Therapy Current Condition Current Condition Evaluation Date 01/30/22 Treatment Diagnosis Multiple falls, COPD exacerbation,weakness Diagnosis Onset Date 01/29/22 M3 OT- IP Subjective and Pain Start: 01/30/22 18:33 Freq: Status: Active Protocol: Document 02/01/22 12:31 [facility] (Rec: 02/01/22 12:45 [facility] [id number]) OT- Subjective Occupational Therapy Visit Type Type Treatment Note Visit Start Time 09:20 Visit Stop Time 10:43 Total Visit Minutes 83 Occupational Therapy Visit Comments Patient Comments Pt agreed to do cognitive assessment and showering. Patient/Caregiver Goals pt does not feel ready to go home OT Pain Assessment Pain When Pain Assessed At Rest Pain Present Pain Present Denied Pain M4 OT- IP ADL's Start: 01/30/22 18:33 Freq: Status: Active Protocol: Document 02/01/22 12:31 [facility] (Rec: 02/01/22 12:45 [facility] [id number]) OT ADL-Grooming General Evaluation Grooming Ability Standby Assistance Areas Needing Assistance Retrieving/Set-up of Grooming Items Comments OT Grooming Comments ABle to hash her face, hands, and comb her hair. OT ADL-Dressing General Eval Lower Body Dressing Ability Maximum Assistance Comments OT Dressing Comments Pt too tired after showering and needing assist to don the brief over her feet and assist with socks. OT ADL-Toileting General Evaluation Toileting Ability Standby Assistance Comments OT Toileting Comments Pt able to wipe appropriately after a bowel movement. OT ADL-Bathing Bathing Type Bathing Type Shower General Evaluation Areas Needing Assistance Wash/Dry Upper Body,Wash/Dry Lower Extremities Devices Bathing Equipment Shower Chair with Arms Comments OT Bathing Comments Pt needing assist with her back and legs. M5 OT- IP IADL's Start: 01/30/22 18:33 Freq: Status: Active Protocol: Document 02/01/22 12:31 [facility] (Rec: 02/01/22 12:45 [facility] [id number]) OT-Instrumental Activities of Daily Living Home Safety Awareness Ability to Problem Solve Emergency Unable to Problem Solve Situations Home Safety Comments Pt states would give out a credit card number if asked and states would call the senior center if she runs out of medications. Pt admits she forgets to feed her cat at times. M6 OT- IP Functional Cognition Start: 01/30/22 18:33 Freq: Status: Active Protocol: Document 02/01/22 12:31 [facility] (Rec: 02/01/22 12:45 [facility] [id number]) Cognitive Factors Limiting Selfcare Function Cognitive Tests SLUMS Pt scored 28/30 which is a normal score for cognition. However pt is forgetful and forgetting that she was going to use the toilet when with OT . Pt forgetting if her O2 was on as O2 tube was disconnected as just had a breathing treatment. Cognitive Comments Cognitive Assessment Comments Pt still would benefit from assist at home for home safety and someone to be sure that she is remembering to eat and take her medications. M7 OT- IP Mobility and Balance Start: 01/30/22 18:33 Freq: Status: Active Protocol: Document 02/01/22 12:31 [facility] (Rec: 02/01/22 12:45 [facility] [id number]) OT- Bed Mobility Assessment Supine to Sit Supine to Sit Assist Minimal Assistance Sit to Supine Sit to Supine Assist Minimal Assistance OT-Transfer Assessment Sit to and From Stand Sit to and from Stand Contact Guard Assistance Transfers Transfer Ability Contact Guard Assistance, Minimal Assistance Technique Transfer Destination Bed,Shower Stall,Toilet Transfer Technique Stand Step Pivot Devices Transfer Assistive Devices Gait Belt,Front Wheeled Walker Comments Mobility Comments Pt HAL to stand and tends to pull on the FWW to stand. Pt CGA to HAL for balance with FWW as unsteady on her feet. OT- Balance Assessment Sitting Balance and Reactions Static Sitting Balance Ability Good Dynamic Sitting Balance Ability Fair Standing Balance and Reactions Static Standing Balance Ability Fair Comments Other Balance Tests/Deviations/Treatment Pt has lose of balance while : showering to do her pericare needs and needing the therapist to help her from losing her balance. M8 OT- IP Objective Assessments Start: 01/30/22 18:33 Freq: Status: Active Protocol: Document 02/01/22 12:46 [facility] (Rec: 02/01/22 12:48 [facility] [id number]) OT-Muscle Tone Assessment Comments Muscle Tone Comments Pt has tremors in her hands. M9 OT- IP Assessment and Plan Start: 01/30/22 18:33 Freq: Status: Active Protocol: Document 02/01/22 12:46 [facility] (Rec: 02/01/22 12:48 [facility] [id number]) OT Summary Assessment and Plan Potential Rehabilitation Potential Good Analytic Complexity at Evaluation Moderate Summary OT Impairments Pain,Strength,Balance, Functional Cognition, Functional Mobility,Grooming, Dressing,Toileting,Bathing, Toilet Transfers,Shower Transfers,Activity Tolerance Progress Towards Goals Slow Progress due to Activity Tolerance,Slow Progress due to Cognition Assessment Summary Pt able to tolerate showering but O2 dropped on RA to 84% and O2 replaced on 2L from 91- 98%. Pt able to shower but needing assist to ronnie clothing over her feet, assist for balance while standing to shower as had a loss of balance, and pt feels that she is not safe to go home at this time. Pt would highly benefit from skilled rehab. Goals Grooming Goal Independent Dressing Goal Independent Toileting Goal Independent Bathing Goal Independent Toilet Transfer Goal Independent Shower Transfer Goal Independent Days to Meet Goals 20 Frequency of Treatment Frequency Of Treatment Once a Day Treatment Plan OT Treatment Plan ADL Training,Functional Cognition Training,Functional Mobility,Patient/Family Education,Discharge Planning Discharge Recommendations OT Discharge Recommendations SNF Rehab Transportation Needs at Discharge Wheelchair/Cabulance
--- NOTE | 2022-02-01 10:50 | PT-IP ANOTE ---
Attempted to see pt at 10:50, pt refused PT stating she is too weak and fatigued from working w/ OT.
[2022-02-01] MEDS: IPRATROPIUM 0.5 MG/2.5 ML NEB INH ×2 (13:09→21:23)
--- NOTE | 2022-02-01 14:34 | P.PN_ITS ---
Subjective Subjective Date Patient Seen: 02/01/22 Interval history: 81-year-old female with a history of COPD, mild to moderate decrease LVEF 40- 45%, hypertension, who presents to the hospital after multiple falls.? Show lives alone on [address]. She almost fell in the shower this morning with standby assistance. She gets out of breath walking short distance. She has been mildly tachycardic but in sinus rhythm. She is on low-dose metoprolol. Triamterene HCTZ discontinued due to orthostatic hypotension. She has chronic hypoxia due to COPD and was using O2 only at night. O2 sats do drop below 90 on room air and we have her on continuous O2 in hospital. She has not had a cough for wheezing. Additionally has chronic severe microcytic anemia with iron studies consistent with chronic iron deficiency.? Extent of prior workup on known. She has likely mild degree of cognitive impairment with short-term memory although did score 28/30 with OT memory testing. Exam Vital Signs (past 8 hours): - 02/01/22 07:55 02/01/22 09:02 02/01/22 13:19 Temperature 97.4 F L Pulse Rate 102 H 110 H 105 H Respiratory Rate 18 20 18 Blood Pressure 157/69 H Pulse Oximetry 97 90 L 97 Oxygen Delivery Method Nasal Cannula Oxygen Flow Rate 2 Narrative Exam Narrative: General: Alert, bruising noted all over extremities Lungs: Clear Heart: Regular Extremities: No edema Neurological: Well oriented, speech normal, affect normal Objective Labs Result Diagrams: 02/01/22 05:04 01/31/22 08:15 Labs: Laboratory Results - last 24 hr 02/01/22 05:04 WBC 3.6 L RBC 5.83 H Hgb 9.4 L Hct 31.1 L MCV 53.3 L MCH 16.1 L MCHC 30.3 RDW 17.2 H Plt Count 129 L Neut % (Auto) 42.5 L Lymph % (Auto) 42.0 H Christian % (Auto) 14.4 H Eos % (Auto) 0.9 L Baso % (Auto) 0.2 Neut # (Auto) 1600 Lymph # (Auto) 1500 Christian # (Auto) 500 Eos # (Auto) 0 Baso # (Auto) 0 RBC Morphology See below Hypochromasia 2+ H Anisocytosis 1+ H Microcytosis 3+ H Target Cells 1+ H PFSH Medical History C. difficile colitis Controlled depression (05/29/16) COPD (chronic obstructive pulmonary disease) Hypokalemia Rheumatoid arthritis with positive rheumatoid factor (10/01/16) Surgical History Status post delivery Family History Sister Age: 85 Hypertension Social History household members: none Smoking Status: Former smoker alcohol intake: current Assessment & Plan Assessment & Plan narrative: 1. Recurrent falls -MRI no stroke -likely multifactorial due to severe deconditioning, COPD, orthostasis -continue PT and OT -ordered standard walker -patient no longer orthostatic with stopping triamterene HCTZ -discharge disposition are clear as patient currently under observation status, high fall risk, and does not have adequate supervision at home 2. Chronic microcytic anemia, pancytopenic -iron studies consistent with chronic iron deficiency with FE 23, transferrin% 11, normal haptoglobin, SPEP pending -will inquire from patient if she has had prior workup -avoid aspirin or NSAIDs -consider outpatient hematology evaluation for pancytopenia -patient on leflunomide for RA and daily nitrofurantoin may be depressing WBC and platelets 3. Acute kidney injury, prerenal, resolved -stopped patient's triamterene HCT -received adequate IV hydration -encourage p.o. fluid intake 4. Chronic systolic heart failure, well compensated -LVEF 40-45% on echo 07/11/2021 -continue metoprolol ER 25 mg q.d. -patient will probably not tolerate afterload reduction 5. Chronic hypoxic respiratory failure due to COPD -negative chest abdomen and pelvis CT -continue O2 2 L NC -continue inhalers 6. Chronic UTI, presumed -continue nitrofurantoin 50 mg at bedtime Time Spent With Patient Critical Care time: I spent a total of [] minutes of critical care time on this patient's care today; this time is exclusive of procedural time. Quality VTE Deep Vein Thrombosis/Pulmonary Embolism Present on Admission: No
--- NOTE | 2022-02-01 15:30 | PT-IP ANOTE ---
Attempted to see pt again at 15:30, pt refused stating I can't today, I am just too tired.
[2022-02-01] MEDS: ENOXAPARIN 30 MG/0.3 ML SYRINGE SUBCUT (15:44)
--- NOTE | 2022-02-01 19:20 | PC.NURSE ---
Patient given vicodin for complaints of discomfort to r.shoulder. This has been helpful. She complains of itching at times to her bruises where she has fallen down. Appetite good. Resting comfortably now.
[2022-02-01] MEDS: ACETAMINOPHEN 325 MG TABLET 975 MG PO (20:27)
[2022-02-01] MEDS: NITROFURANTOIN ER 100 MG CAPSULE PO (20:27)
[2022-02-02] VITALS (7 sets, daily range): BP systolic 130–174; BP diastolic 66–83; PULSE 85–114; RESP 18–24; TEMP 36.4–36.9; O2SAT 97–100
[2022-02-02] MEDS: IPRATROPIUM 0.5 MG/2.5 ML NEB INH ×3 (09:06→18:40)
[2022-02-02] MEDS: DOCUSATE 100 MG CAPSULE PO ×2 (10:48→20:55)
[2022-02-02] MEDS: LEFLUNOMIDE 20 MG TABLET PO (10:48)
[2022-02-02] MEDS: FLUoxetine 20 MG CAPSULE PO (10:48)
[2022-02-02] MEDS: ENOXAPARIN 30 MG/0.3 ML SYRINGE SUBCUT (10:48)
--- NOTE | 2022-02-02 11:52 | PM.PN.1 ---
Subjective Subjective Date Patient Seen: 02/02/22 Interval history: 81-year-old female with a history of COPD, mild to moderate decrease LVEF 40-45%, hypertension, who presents to the hospital after multiple falls.? Show lives alone on [address]. She remains high fall risk and would likely fall without standby assistance. We are hoping to get her in to intermediate under COVID exception. Due to COPD she gets out of breath walking short distance. She was previously using O2 at night only at home and we have her now on continuous 2 L NC. She has not had cough for wheezing. Blood pressure is running high taken supine Triamterene HCTZ discontinued due to orthostatic hypotension. She is on low-dose metoprolol.? ? Additionally has chronic severe microcytic anemia with iron studies consistent with chronic iron deficiency.? Also has mild pancytopenia. Extent of prior workup unknown. Exam Vital Signs (past 8 hours): - 02/02/22 04:00 02/02/22 07:51 02/02/22 09:19 Temperature 97.7 F 97.5 F L Pulse Rate 85 90 Respiratory Rate 18 18 Blood Pressure 163/80 H 174/83 H Pulse Oximetry 99 100 99 Oxygen Delivery Method Nasal Cannula Oxygen Flow Rate 2 Narrative Exam Narrative: General: Alert, conversant, NAD Lungs: Clear Heart: Regular Extremities: No edema Neuro: Fully oriented, speech normal, affect normal Integument: Scattered extensive bruising on extremities present from admission Objective Labs Result Diagrams: 02/01/22 05:04 01/31/22 08:15 [facility] Medical History C. difficile colitis Controlled depression (05/29/16) COPD (chronic obstructive pulmonary disease) Hypokalemia Rheumatoid arthritis with positive rheumatoid factor (10/01/16) Surgical History Status post delivery Family History Sister Age: 85 Hypertension Social History household members: none Smoking Status: Former smoker alcohol intake: current Assessment & Plan Assessment & Plan narrative: 1. Recurrent falls -MRI no stroke -likely multifactorial due to severe deconditioning, COPD, orthostasis -continue PT and OT -ordered standard walker -patient no longer orthostatic with stopping triamterene HCTZ -discharge disposition unclear as patient currently under observation status, high fall risk, and does not have adequate supervision at home -hopefully can discharge to SNF under COVID exception 2. Chronic microcytic anemia, pancytopenic -iron studies consistent with chronic iron deficiency with FE 23, transferrin% 11, normal haptoglobin, SPEP pending -will inquire from patient if she has had prior workup -avoid aspirin or NSAIDs -consider outpatient hematology evaluation for pancytopenia -patient on leflunomide for RA and daily nitrofurantoin may be depressing WBC and platelets 3. Acute kidney injury, prerenal, resolved -stopped patient's triamterene HCT -received adequate IV hydration -encourage p.o. fluid intake 4. Chronic systolic heart failure, well compensated -LVEF 40-45% on echo 07/11/2021 -continue metoprolol ER 25 mg q.d. -patient is unlikely to tolerate afterload reduction 5. Chronic hypoxic respiratory failure due to COPD -negative chest abdomen and pelvis CT -continue O2 2 L NC -continue inhalers 6. Chronic UTI, presumed -continue nitrofurantoin 50 mg at bedtime Time Spent With Patient Critical Care time: I spent a total of [] minutes of critical care time on this patient's care today; this time is exclusive of procedural time. Quality VTE Deep Vein Thrombosis/Pulmonary Embolism Present on Admission: No
--- NOTE | 2022-02-02 12:01 | PT.IPTN ---
Current Diagnoses Chronic obstructive pulmonary disease with (acute) exacerbation (01/31/22) Physical Therapy Treatment Note M2 PT-IP Current Condition Start: 01/30/22 16:45 Freq: NEEDED Status: Active Protocol: Document 01/30/22 14:35 AB (Rec: 01/30/22 17:14 AB [id number]) Physical Therapy Current Condition Current Condition Evaluation Date 01/30/22 Treatment Diagnosis s/p falls; weakness; difficulty in walking Onset Date 01/29/22 M3 PT-IP Subjective Start: 01/30/22 16:45 Freq: NEEDED Status: Active Protocol: Document 02/02/22 11:50 [facility] (Rec: 02/02/22 12:01 [facility] [id number]) Subjective Physical Therapy Visit Type Type Treatment Note Visit Start Time 11:15 Visit Stop Time 11:48 Total Visit Minutes 33 Number of [employer] Visits 0 Physical Therapy Visit Comments Patient Comments Willing to do stair training; has 9 stairs at home [address] [facility] with bilateral railings . M4 PT-IP Mobility and Gait Start: 01/30/22 16:45 Freq: NEEDED Status: Active Protocol: Document 02/02/22 11:50 [facility] (Rec: 02/02/22 12:01 [facility] [id number]) PT-Bed Mobility Assessment Sit to Supine Sit to Supine Minimal Assistance,1 Person Assistance,Head of Bed Elevated PT-Transfer Assessment Sit to and From Stand Sit to and from Stand Contact Guard Assistance,1 Person Assistance,Use of Upper Extremities Equipment Orthotic/Prosthetic Devices or Brace: No Transfers Transfer Destination Bed Transfer Technique bed to w/c with FWW and CGA Comments Mobility Comments O2 sats 98 laying in bed, 96 after sitting on 2L O2. Patient wheeled to stairs for training. Ascend/descend 3 stairs x 3 with cane and one railing with CGA O2 2L O2. 5 min rest break. Ambulated 70' with single point cane, CG- min assist and O2 per NC at 2L , O2 sats 99% after ambulation . Patient fatigued and ready for rest. all light and tray table in place. Gait Assessment Gait Gait Assistance Required: Contact Guard Assist,Minimum Assistance Distance (Feet) 70 Able to Maintain Weight Bearing Status No During Gait Assistive Devices Assistive Device Gait Belt,Straight Cane,Front Wheeled Walker Orthotic/Prosthetic Devices or Brace: No Gait Deviations General Gait Pattern Decreased Stride Length, Decreased Feet Clearance,Step- to Gait Factors Limiting Gait Function Factors Limiting Gait Function Decreased Activity Tolerance, Poor Balance,Respiratory Distress Comments Gait Comments Patient reports dizziness when turns head during ambulation; c/o having dizziness for years and feels that is why she falls. Denied significant dizziness during PT session. Stair Climbing Assessment Evaluation Level of Assist On Stairs Contact Guard Assistance, Minimal Assistance Devices Stair Climbing Assistive Devices Straight Cane,Left Railing, Right Railing PT-Balance Assessment Sitting Balance and Reactions Static Sitting Balance Ability Good Dynamic Sitting Balance Ability Fair Standing Balance and Reactions Static Standing Balance Ability Fair Dynamic Standing Balance Ability Fair Device Used straight cane M5 PT-IP Objective Assessments Start: 01/30/22 16:45 Freq: NEEDED Status: Active Protocol: Document 01/30/22 14:35 AB (Rec: 01/30/22 17:14 [facility] [id number]) Orientation Orientation/Cognition Level of Alertness Alert Orientation Name,Situation Language Function Ability No Deficits Noted Safety Awareness Decreased Safety Awareness Memory Description No Deficits Noted Gross Range of Motion Lower Extremity ROM Assessment Within Functional Limits Strength Lower Extremity Strength Assessment Within Functional Limits Coordination Assessment Gross Coordination Gross Coordination WNL Sensation Assessment Sensation Gross Sensation WNL Muscle Tone Muscle Tone WNL Yes M6 PT-IP Treatment Start: 01/30/22 16:45 Freq: NEEDED Status: Active Protocol: Document 01/31/22 11:12 [facility] (Rec: 01/31/22 14:39 [facility] [id number]) Physical Therapy Treatment Education Education Provided Safety M7 PT-IP Assessment and Plan Start: 01/30/22 16:45 Freq: NEEDED Status: Active Protocol: Document 02/02/22 11:50 [facility] (Rec: 02/02/22 12:01 [facility] [id number]) PT Summary Assessment and Plan Potential Rehabilitation Potential Fair Status of Condition at Evaluation Evolving Summary Impairments Pain,ROM,Strength,Balance, Coordination,Sensation,Tone, Cognition,Bed Mobility, Transfers,Gait,Activity Tolerance Assessment Summary Patient remains high fall risk given her c/o frequent dizziness, though with CGA with straight cane was able to ambulate 70' today. May benefit from evaluation for vestibular dysfunction. She had increased activity tolerance today and O2 sats remained in high 90's throughout session, no c/o SOB but very fatigued after stairs and gait training with cane. Goals Bed Mobility Goal Independent Transfer Goal Independent,Front Wheeled Walker Gait Goal Independent,Front Wheel Walker Gait Distance 250 Other Goals up/down 9 steps B rails SBA Days to Meet Goals 10 Frequency of Treatment Frequency Of Treatment Once a Day Treatment Plan Physical Therapy Treatment Plan Bed Mobility Training,Transfer Training,Gait Training, Therapeutic Exercise,Balance Retraining,Discharge Planning, Hot or Cold Pack,Neuromuscular Re-ed,Coordination Retraining Precautions Other Precautions O2 sat, BP, falls Recommendations To Nursing Amount of Assist Needed 1 Person Assist Discharge Recommendations PT Discharge Recommendations SNF Rehab Equipment Needed for Home Before FWW Discharge Transportation Needs at Discharge Private Vehicle,Wheelchair/ Cabulance
[2022-02-02] MEDS: PANTOPRAZOLE DR 20 MG TABLET PO (13:03)
--- NOTE | 2022-02-02 14:06 | CM.DPNOTE ---
DCP Note Attempted bedside visit this afternoon to collect more of patient's history and review DCP; Patient says I can't get rid of you people no matter what I do patient requests CM team return tomorrow , day of discharge Patient aware that plan is for DC to [facility] tomorrow; patient states agreement. Plan: DC to [facility] planned for Thursday02.03.22 utilizing COVID waiver (patient remains obs) via cabulance. Transport time TBD. Dr Last updated w/plan. PASRR completed. JUAN
[2022-02-02] MEDS: BENZOCAINE/MENTHOL 1 LOZ PKT 1 EACH PO (20:55)
[2022-02-03 00:30] VITALS: BP 154/86; PULSE 110; RESP 28; O2SAT 98
[2022-02-03 02:40] VITALS: PULSE 89; RESP 20; O2SAT 93
[2022-02-03] MEDS: PANTOPRAZOLE DR 20 MG TABLET PO (05:09)
[2022-02-03 07:00] VITALS: BP 139/90; PULSE 105; RESP 22; TEMP 36.6; O2SAT 99
[2022-02-03] MEDS: IPRATROPIUM 0.5 MG/2.5 ML NEB INH ×2 (08:13→12:51)
[2022-02-03 08:18] VITALS: RESP 18; O2SAT 99
[2022-02-03] MEDS: LEFLUNOMIDE 20 MG TABLET PO (08:27)
[2022-02-03] MEDS: FLUoxetine 20 MG CAPSULE 40 MG PO (08:27)
[2022-02-03] MEDS: ENOXAPARIN 30 MG/0.3 ML SYRINGE SUBCUT (08:28)
[2022-02-03 09:46] LABS: COVID19 -Nasal RAPID Negative (Negative)
--- NOTE | 2022-02-03 10:03 | P.DS_ITS ---
History of Present Illness History of Present Illness Date Patient Seen: 02/03/22 Time Patient Seen: 10:03 Chief complaint: fall Narrative: Per Dr. Robles, Pt with recent hx of admission to [facility] for repeated falls presents s/p multiple falls at home she is COPD with prn O2 at baseline, here she is desatting quite easy on exertion with elevated BNP.? She is between PCPs currently lives alone on [address]. Feels ok today but Everything hurts if I move it s/p negative fracture workup complains of sore throat x3 days. 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 - [employer] Stat Comment: 01/29/22 12:34 Consult to [employer]Y YARD WORKER - [employer] Stat Comment: 01/29/22 15:29 Consult to Physical Therapy Evaluate & Treat Comment: Physician Instructions: Evaluate and Treat 01/29/22 18:51 Consult to [employer]Y YARD WORKER - [employer] Routine Comment: 01/29/22 21:58 Consult to Occupational Therapy Evaluate & Treat Comment: Physician Instructions: Evaluate and treat Consult to Physical Therapy Evaluate & Treat Comment: Physician Instructions: Evaluate and Treat 01/31/22 12:49 Consult to Physical Therapy Evaluate & Treat Comment: Physician Instructions: Evaluate and Treat 01/31/22 12:51 Consult to Physical Therapy Evaluate & Treat Comment: FWW for home use Physician Instructions: Evaluate and Treat 02/01/22 14:31 Consult to Physical Therapy Evaluate & Treat Comment: Physician Instructions: Evaluate and Treat 02/01/22 14:32 Consult to Physical Therapy Evaluate & Treat Comment: FWW for home use. Physician Instructions: Evaluate and Treat Discharge provider: Ren Mckeon DO Summary Hospital Course Discharge Diagnosis: 1. Recurrent falls, orthostatic hypotension 2. Chronic microcytic anemia, pancytopenic 3. Acute kidney injury, prerenal, resolved 4. Chronic diastolic heart failure, well compensated, EF 40-45%. 5. Chronic hypoxic respiratory failure due to COPD 6. Chronic UTI, presumed Hospital Course: This is an 81-year-old female admitted with multiple falls, and TRACEY. Extensive evaluation including MRI revealed no acute CVA. She was severely deconditioned and was severely orthostatic which improved with stopping her home blood pressure medications. She also had a mild TRACEY which was likely in the setting of dehydration and diuretic use which was held. She has chronic respiratory failure from COPD and was on her usual amount of oxygen, currently 99% on 2 L. Ideally she should be on oxygen only to maintain O2 saturations between 88 and 96% while on supplemental therapy and I do recommend further titration downward likely as an outpatient. She was transferred to [facility] facility for continued physical and occupational therapy in the setting of orthostatic hypotension and recurrent falls. A number of her home medications were discontinued at this time, though I do recommend follow-up with her primary care provider for further medication adjustment as an outpatient. Time Spent with Patient Time spent: Greater than 30 minutes Exam Vital Signs (past 8 hours): - 02/03/22 02:40 02/03/22 07:00 02/03/22 08:18 Temperature 97.9 F Pulse Rate 89 105 H Respiratory Rate 20 22 18 Blood Pressure 139/90 Pulse Oximetry 93 99 99 Oxygen Delivery Method Nasal Cannula Oxygen Flow Rate 2 Narrative Exam Narrative: General:? Alert, conversant, NAD Lungs: Clear Heart:? Regular Extremities:? No edema Neuro:? Fully oriented, speech normal, affect normal Integument:? Scattered extensive bruising on extremities present from admission Objective Labs Result Diagrams: 02/01/22 05:04 01/31/22 08:15 Labs: Laboratory Results - last 24 hr 02/03/22 09:31 SARS-CoV-2 (PCR) Negative [facility] Medical History C. difficile colitis Controlled depression (05/29/16) COPD (chronic obstructive pulmonary disease) Hypokalemia Rheumatoid arthritis with positive rheumatoid factor (10/01/16) Surgical History Status post delivery Family History Sister Age: 85 Hypertension Social History household members: none Smoking Status: Former smoker alcohol intake: current Discharge Plan Discharge Plan Patient Disposition: SNF Transfer to: [facility] Provider Discharge Comment: Patient admitted for recurrent falls, remains deconditioned but orthostatic hypotension improving, some BP medications were stopped. Transfer to SNF for continued PT/OT. Discharge orders & Medications Prescriptions: New acetaminophen 325 mg Tablet 975 mg PO Q8H PRN (Reason: Pain, Mild (1-3)) 30 Days Qty: 30 0RF Continued fluoxetine 40 mg capsule See Rx Instructions .ROUTE .COMPLEX Qty: 90 0RF Dose Instruction: TAKE ONE CAPSULE BY MOUTH EVERY OTHER DAY FOR 14 DAYS THEN INCREASE TO 1 CAPSULE BY MOUTH EVERY DAY Rx Instructions: TAKE ONE CAPSULE BY MOUTH EVERY OTHER DAY FOR 14 DAYS THEN INCREASE TO 1 CAPSULE BY MOUTH EVERY DAY leflunomide 20 mg tablet 20 mg PO DAILY 0RF Spiriva with HandiHaler 18 mcg capsule, w/inhalation device 1 cap inhalation DAILY 0RF Rx Instructions: puncture 1 cap using device; one dose = 2 inhalations Trelegy Ellipta 100-62.5-25 mcg blister with device 1 inh inhalation DAILY 0RF Discontinued triamterene-hydrochlorothiazid 37.5-25 mg tablet 1 tab PO QDAY Qty: 90 3RF nitrofurantoin macrocrystal 50 mg capsule See Rx Instructions .ROUTE .COMPLEX Qty: 90 0RF Dose Instruction: TAKE ONE CAPSULE BY MOUTH AT BEDTIME --MUST TAKE WITH FOOD/MEAL-- Rx Instructions: TAKE ONE CAPSULE BY MOUTH AT BEDTIME --MUST TAKE WITH FOOD/MEAL-- metoprolol succinate 25 mg tablet extended release 24 hr 25 mg PO DAILY 0RF Follow up/Referrals: Nancy Muro PAOzzyC [Primary Care Provider] - Discharge Health Status Multidrug resistant organism: No MDRO Diet/Activity/Treatments Diet: Diet as Tolerated Oxygen: 2L, only to maintain O2 saturations between 89-96%. Can decrease as able. Special Rehabilitation Services Reason for rehabilitation: Recovery r/t decondition Rehab type: Physical therapy and Occupational therapy Discharge Data Primary Care Provider: Nancy Muro Quality VTE Deep Vein Thrombosis/Pulmonary Embolism Present on Admission: No
--- NOTE | 2022-02-03 10:26 | CM.DPC ---
DCP Discharge SNF Per MD, pt remains stable to d/c to SNF today and no identified barriers to discharge. ANDIE placed COVID swab orders and alerted RN who kindly completed this morning and results returned negative. ANDIE spoke to Bertha at [facility] and confirmed they can still accept today and transport scheduled for 1300. ANDIE provided pt's SS# and COVID waiver signed yesterday by and SHERMAN carreno. ROSANA De La Vega kindly faxing d/c packet to [facility] when available. Pt aware and agreeable with SNF today prior to return home to [facility] when stable. Plan: Patient to d/c to [facility] today via cabulance at 1300. KIMBERLI Carrington
[2022-02-03 12:53] VITALS: PULSE 102; RESP 18; O2SAT 99
--- NOTE | 2022-02-03 13:58 | PC.NURSE ---
Discharge Note Patient A&O, VSS, 2L NC. No complaints of pain/discomfort. Discharge plan reviewed with patient, all questions/concerns addressed. No PIV, per patient PIV discontinued. Patient able to dress self. All belongings packed and given to patient. Packet given to facility staff. Patient taken down via wheelchair by facility staff.
[2022-02-03 14:12] LABS: Albumin 2.9 g/dL (2.9-4.4); Alpha-1-Globulin 0.5 g/dL (0.0-0.4); Globulin Total 3.4 g/dL (2.2-3.9); Protein, Total 6.3 g/dL (6.0-8.5)
[2022-02-04 12:24] LABS: Alpha-1 Globulin, Ur 8.7 % (.); Beta Globulin, Ur 30.7 % (.); Gamma Globulin, Ur 20.7 % (.); M-Spike % Not Observed % (Not Observed); Urine Total Protein 6.9 mg/dL (Not Estab.)
== END 2022-02-03 13:50 | DRG 312 ==
LOC: ED 17:24 → AC 18:03
PROVIDERS: Internal Medicine; Admitting Provider Family Medicine; Emergency Provider Emergency Medicine; PCP Physician Assistant Medical; Referring Provider Emergency Medicine; Visit Provider Internal Medicine
DX: I95.1 Orthostatic hypotension (principal); N17.9 Acute kidney failure, unspecified; D61.818 Other pancytopenia; I50.22 Chronic systolic (congestive) heart failure; J96.11 Chronic respiratory failure with hypoxia; N39.0 Urinary tract infection, site not specified; F32.1 Major depressive disorder, single episode, moderate; D50.9 Iron deficiency anemia, unspecified; I11.0 Hypertensive heart disease with heart failure; J44.9 Chronic obstructive pulmonary disease, unspecified; R29.6 Repeated falls; E87.6 Hypokalemia; M06.9 Rheumatoid arthritis, unspecified; Z91.81 History of falling; Z87.891 Personal history of nicotine dependence; Z20.822 Contact with and (suspected) exposure to COVID-19
CPT/HCPCS: 36415; 70450; 70551; 71260; 72125; 74177; 80053; 81001; 82247; 82550; 82553; 82728; 83010; 83036; 83540; 83550; 83605; 83615; 83880; 84145; 84155; 84156; 84165; 84166; 84484; 85007; 85025; 85610; 85730; 87040; 87635; 93005; 94640; 94760; 96374; 96375; 97116; 97162; 97166; 97530; 97535; 99285; C9803; G0378; A9579; J1650; J1940; J2405; J2930; J7050; Q9967

== ENCOUNTER → 2022-11-12 12:58 | Outpatient (CLI) | payer MEDICARE, MEDICAID, SELFPAY ==
[2022-01-29 18:26] VITALS: BMI 24.7
[2022-11-13 20:11] LABS: Hematocrit 30.8 % (36-46); Hemoglobin 9.4 g/dL (12.0-16.0); Mean Corpuscular HGB Conc 30.6 % (30-36); Mean Corpuscular Hemoglobin 16.5 PG (26-34); Mean Corpuscular Volume 53.8 fL (80-100); Platelet Count 132 X10^3/uL (150-400); Red Blood Cell Count 5.73 X10^6/uL (4.0-5.2); Red Cell Distribution Width 16.4 % (11.6-14.8)
[2022-11-13 20:14] LABS: Add Manual Diff / Slide Review YES
[2022-11-13 20:16] LABS: Alanine Aminotransferase 16 IU/L (<35); Albumin 3.7 g/dL (3.5-5.0); Alkaline Phosphatase 126 U/L (38-126); Aspartate Aminotransferase 31 IU/L (14-36); BUN Creatinine Ratio 32.3 (6-22); Bilirubin Total 0.6 mg/dL (0.2-1.3); Blood Urea Nitrogen 32 mg/dL (7-17); Calcium 8.6 mg/dL (8.4-10.2); Carbon Dioxide 34 mmol/L (22-32); Chloride 97 mmol/L (98-107); Cholesterol 216 mg/dL (140-199); Estimated Glomerular Filt Rate 57 mL/min (>60); Globulin 3.8 g/dL (1.7-4.1); Glucose 95 mg/dL (80-110); HDL Cholesterol 25 mg/dL (40-60); Sodium 138 mmol/L (137-145); Total Protein 7.5 g/dL (6.3-8.2)
[2022-11-13 20:29] LABS: HEMOLYSIS 65 (0-50); Potassium 4.7 mmol/L (3.4-5.1); Triglycerides 709 mg/dL (35-150)
[2022-11-13 20:46] LABS: TSH w/ Reflex to FT4 1.06 uIU/mL (0.47-4.68)
[2022-11-13 21:06] LABS: Vitamin B12 243 pg/mL (239-931)
[2022-11-13 21:11] LABS: Neutrophils Absolute Manual 400 /uL (3000-5900); Total Cells Counted 100
[2022-11-13 21:12] LABS: Anisocytosis 1+; Hypochromasia 2+; Poikilocytosis 1+
== END ==
PROVIDERS: PCP Physician Assistant Medical; Referring Provider Family Medicine; Visit Provider Family Medicine
DX: J44.9 Chronic obstructive pulmonary disease, unspecified (principal); I50.32 Chronic diastolic (congestive) heart failure; D56.9 Thalassemia, unspecified; D64.9 Anemia, unspecified; F32.9 Major depressive disorder, single episode, unspecified; I10 Essential (primary) hypertension
CPT/HCPCS: 80053; 80061; 82607; 84443; 85007; 85025

== ENCOUNTER → 2022-11-14 12:22 | Outpatient (CLI) | payer MEDICARE, MEDICAID, SELFPAY ==
[2022-01-29 18:26] VITALS: BMI 24.7
--- NOTE | 2022-11-14 12:25 | DI.US.S_ITS ---
PROCEDURE: US PERIPH VENOUS LOW EXTREM LT INDICATIONS: ANKLE EDEMA TECHNIQUE: Real-time imaging, as well as color and pulse Doppler interrogation, were performed of the lower extremity deep veins from the inguinal ligament to the popliteal fossa. COMPARISON: None. FINDINGS: The common femoral, femoral and popliteal veins are normally compressible, and free of intraluminal thrombus. Color and pulse Doppler demonstrate normal phasic intraluminal flow. There is normal augmentation response to distal compression maneuver. Note is made at the anterolateral ankle level left lower extremity there is a small amount of focal fluid without adjacent hyperemia, and also a small Owen cyst at the posterior knee.. IMPRESSION: No DVT found. No suspicion for abscess or trauma. Dictated by: Pablo Phoenix M.D. on 11/14/2022 at 16:34 Approved by: Pablo Phoenix M.D. on 11/14/2022 at 16:37
== END ==
PROVIDERS: PCP Physician Assistant Medical; Referring Provider Physician Assistant Medical; Visit Provider Physician Assistant Medical
DX: R60.0 Localized edema (principal)
CPT/HCPCS: 93971

== ENCOUNTER → 2022-12-09 14:13 | Outpatient (CLI) | payer MEDICARE, MEDICAID, SELFPAY ==
[2022-01-29 18:26] VITALS: BMI 24.7
== END ==
PROVIDERS: PCP Physician Assistant Medical; Visit Provider Physician Assistant
DX: R39.9 Unspecified symptoms and signs involving the genitourinary system (principal)
CPT/HCPCS: 87086

== ENCOUNTER → 2023-02-26 15:42 | Outpatient (CLI) | payer MEDICARE, MEDICAID, SELFPAY ==
[2022-01-29 18:26] VITALS: BMI 24.7
== END ==
PROVIDERS: PCP Family Medicine; Visit Provider Physician Assistant Medical
DX: R30.0 Dysuria (principal)
CPT/HCPCS: 87077; 87086; 87186

== ENCOUNTER → 2023-03-10 10:37 | Outpatient (CLI) | payer MEDICARE, MEDICAID, SELFPAY ==
[2022-01-29 18:26] VITALS: BMI 24.7
[2023-03-10 20:13] LABS: Alanine Aminotransferase 18 IU/L (<35); Albumin 3.8 g/dL (3.5-5.0); Alkaline Phosphatase 107 U/L (38-126); Amylase 68 U/L (30-110); Aspartate Aminotransferase 28 IU/L (14-36); BUN Creatinine Ratio 37.5 (6-22); Bilirubin Total 0.4 mg/dL (0.2-1.3); Bilirubin Unconjugated 0.1 mg/dL (0.0-1.1); Blood Urea Nitrogen 54 mg/dL (7-17); Calcium 9.1 mg/dL (8.4-10.2); Carbon Dioxide 33 mmol/L (22-32); Chloride 97 mmol/L (98-107); Cholesterol 259 mg/dL (140-199); Estimated Glomerular Filt Rate 36 mL/min (>60); Globulin 3.7 g/dL (1.7-4.1); Glucose 102 mg/dL (80-110); HDL Cholesterol 29 mg/dL (40-60); HEMOLYSIS < 15 (0-50); Potassium 3.9 mmol/L (3.4-5.1); Sodium 138 mmol/L (137-145); Total Protein 7.5 g/dL (6.3-8.2)
[2023-03-10 20:14] LABS: Hemoglobin 9.2 g/dL (12.0-16.0); Mean Corpuscular HGB Conc 30.6 % (30-36); Mean Corpuscular Hemoglobin 16.2 PG (26-34); Mean Corpuscular Volume 53.1 fL (80-100); Platelet Count 136 X10^3/uL (150-400); Red Blood Cell Count 5.66 X10^6/uL (4.0-5.2); Red Cell Distribution Width 17.3 % (11.6-14.8); White Blood Cell Count 5.7 X10^3/uL (4.5-11.0)
[2023-03-10 20:16] LABS: Add Manual Diff / Slide Review YES
[2023-03-10 20:20] LABS: NT-proBNP (BNP-Adult 18+) 333 pg/mL (<450)
[2023-03-10 20:40] LABS: Triglycerides 903 mg/dL (35-150)
[2023-03-10 20:49] LABS: Neutrophils Absolute Manual 741 /uL (3000-5900); Total Cells Counted 100
[2023-03-10 20:50] LABS: Anisocytosis 2+; Hypochromasia 2+; Microcytosis 3+; Ovalocytes 2+; Target Cells 1+
[2023-03-10 21:01] LABS: Vitamin B12 305 pg/mL (239-931)
== END ==
PROVIDERS: PCP Family Medicine; Visit Provider Family Medicine
DX: D50.9 Iron deficiency anemia, unspecified (principal); E53.8 Deficiency of other specified B group vitamins; E78.2 Mixed hyperlipidemia; I10 Essential (primary) hypertension; K59.00 Constipation, unspecified; I50.32 Chronic diastolic (congestive) heart failure; R11.2 Nausea with vomiting, unspecified; R53.1 Weakness; R63.0 Anorexia; R63.4 Abnormal weight loss
CPT/HCPCS: 80048; 80061; 80076; 82150; 82607; 83880; 85007; 85025

== ENCOUNTER → 2023-04-18 20:07 | Outpatient (ROUT) | payer MEDICARE, MEDICAID, SELFPAY ==
[2022-01-29 18:26] VITALS: BMI 24.7
[2023-04-18 20:17] LABS: Appearance Urine UA SL CLOUDY; Bilirubin Urine UA NEGATIVE (NEGATIVE); Color Urine UA YELLOW; Glucose Urine UA NEGATIVE (Negative); Ketones Urine UA NEGATIVE (NEGATIVE); Leukocyte Esterase Urine UA NEGATIVE (NEGATIVE); Nitrite Urine UA NEGATIVE (Negative); Occult Blood Urine UA NEGATIVE (Negative); Protein Urine UA NEGATIVE (Negative); Urobilinogen Urine UA 0.2 E.U./dL (0.2)
[2023-04-18 20:22] LABS: pH Urine UA 5.5 (4.5-8.0)
[2023-04-18 20:25] LABS: Amorphous Sediment Urine 3+; Bacteria Urine None Seen; Culture Indicated Urine Cult Not Indicated; RBC Urine 0-1/HPF (0-5/HPF); Squamous Epithelial Cell Urine 1-5 /HPF (0-5/HPF); WBC Urine 1-5/HPF (0-5/HPF)
== END ==
PROVIDERS: PCP Family Medicine; Visit Provider Internal Medicine
DX: R32 Unspecified urinary incontinence (principal)
CPT/HCPCS: 81001

== ENCOUNTER → 2023-04-29 18:41 | Outpatient (ROUT) | payer MEDICARE, MEDICAID, SELFPAY ==
[2022-01-29 18:26] VITALS: BMI 24.7
[2023-04-29 18:49] LABS: Appearance Urine UA CLOUDY; Bilirubin Urine UA NEGATIVE (NEGATIVE); Color Urine UA YELLOW; Glucose Urine UA NEGATIVE (Negative); Ketones Urine UA NEGATIVE (NEGATIVE); Leukocyte Esterase Urine UA 3+ (NEGATIVE); Nitrite Urine UA POSITIVE (Negative); Occult Blood Urine UA NEGATIVE (Negative); Protein Urine UA NEGATIVE (Negative); Urobilinogen Urine UA 0.2 E.U./dL (0.2)
[2023-04-29 18:50] LABS: pH Urine UA 5.5 (4.5-8.0)
[2023-04-29 19:02] LABS: Amorphous Sediment Urine 2+; Bacteria Urine Moderate (10-30); Culture Indicated Urine Specimen Cultured; RBC Urine None Seen (0-5/HPF); WBC Urine 10-30/HPF (0-5/HPF)
== END ==
PROVIDERS: PCP Family Medicine; Visit Provider Nurse Practitioner Family
DX: R30.0 Dysuria (principal); R35.0 Frequency of micturition; R39.15 Urgency of urination
CPT/HCPCS: 81001; 87077; 87086

== ENCOUNTER → 2023-05-18 20:45 | Outpatient (ROUT) | payer MEDICARE, MEDICAID, SELFPAY ==
[2022-01-29 18:26] VITALS: BMI 24.7
[2023-05-18 20:53] LABS: Appearance Urine UA CLOUDY; Bilirubin Urine UA NEGATIVE (NEGATIVE); Color Urine UA YELLOW; Glucose Urine UA NEGATIVE (Negative); Ketones Urine UA NEGATIVE (NEGATIVE); Leukocyte Esterase Urine UA 1+ (NEGATIVE); Nitrite Urine UA POSITIVE (Negative); Occult Blood Urine UA NEGATIVE (Negative); Protein Urine UA NEGATIVE (Negative); Urobilinogen Urine UA 0.2 E.U./dL (0.2)
[2023-05-18 21:10] LABS: Bacteria Urine Many (>30); Culture Indicated Urine Specimen Cultured; RBC Urine None Seen (0-5/HPF); Squamous Epithelial Cell Urine None Seen (0-5/HPF); WBC Urine 10-30/HPF (0-5/HPF)
== END ==
PROVIDERS: PCP Family Medicine; Visit Provider Nurse Practitioner Family
DX: R35.0 Frequency of micturition (principal); R32 Unspecified urinary incontinence
CPT/HCPCS: 81001; 87077; 87086; 87186

== ENCOUNTER → 2023-06-01 16:17 | Outpatient (ROUT) | payer MEDICARE, MEDICAID, SELFPAY ==
[2022-01-29 18:26] VITALS: BMI 24.7
[2023-06-01 16:29] LABS: Add Manual Diff / Slide Review NO; Basophils Absolute Auto 0 /uL (0-100); Basophils Percent Auto 0.4 % (0-2); Eosinophils Absolute Auto 300 /uL (0-450); Eosinophils Percent Auto 5.1 % (2-4); Hematocrit 28.2 % (36-46); Hemoglobin 8.7 g/dL (12.0-16.0); Lymphocytes Absolute Auto 2900 /uL (1100-4500); Lymphocytes Percent Auto 51.7 % (25-40); Mean Corpuscular Hemoglobin 16.4 PG (26-34); Monocytes Absolute Auto 1000 /uL (0-900); Monocytes Percent Auto 17.4 % (3-14); Neutrophils Absolute Auto 1400 /uL (1500-7000); Neutrophils Percent Auto 25.4 % (50-75); Platelet Count 179 X10^3/uL (150-400); Red Blood Cell Count 5.32 X10^6/uL (4.0-5.2); Red Cell Distribution Width 17.4 % (11.6-14.8); White Blood Cell Count 5.7 X10^3/uL (4.5-11.0)
[2023-06-01 16:46] LABS: BUN Creatinine Ratio 32.8 (6-22); Blood Urea Nitrogen 40 mg/dL (7-17); Calcium 8.8 mg/dL (8.4-10.2); Carbon Dioxide 30 mmol/L (22-32); Chloride 103 mmol/L (98-107); Estimated Glomerular Filt Rate 44 mL/min (>60); Glucose 94 mg/dL (80-110); HEMOLYSIS < 15 (0-50); Potassium 4.5 mmol/L (3.4-5.1); Sodium 138 mmol/L (137-145)
== END ==
PROVIDERS: PCP Family Medicine; Visit Provider Nurse Practitioner Family
DX: Z13.9 Encounter for screening, unspecified (principal)
CPT/HCPCS: 80048; 85025

== ENCOUNTER 2023-06-09 02:48 | Emergency (ER) | payer MEDICARE, MEDICAID, SELFPAY ==
[2022-01-29 18:26] VITALS: BMI 24.7
--- NOTE | 2023-06-09 02:50 | DI.RAD.S_ITS ---
PROCEDURE: XR WRIST LT MIN 3V INDICATIONS: fall with pain TECHNIQUE: 4 views of the wrist were acquired. COMPARISON: [facility], CR, XR HAND 3+ VIEWS BILATERAL, 03/13/2021, 16:27. FINDINGS: Bones: There is a mildly impacted fracture of the distal radius with comminution and intra-articular extension as well as mild dorsal angulation. No definite ulnar fracture is seen. Generalized osteopenia is noted. Background arthritic changes in the wrist are most notable at the 1st carpometacarpal joint. Scaphoid view: Intact scaphoid. Soft tissues: No suspicious soft tissue calcifications. IMPRESSION: Comminuted intra-articular mildly impacted and angulated fracture of the distal radius. There is no significant discrepancy when compared to the overnight preliminary report. Approved by: Josh Carpenter M.D. on 06/09/2023 at 8:15
--- NOTE | 2023-06-09 02:51 | ED.GENADULT ---
HPI - General Adult General Chief complaint: Extremity Injury, Upper Stated complaint: GLF on thinner Time Seen by Provider: 06/09/23 02:50 Source: patient Mode of arrival: EMS Limitations: no limitations History of Present Illness HPI narrative: Patient is an 82-year-old female. Despite the stated complaint she is not on blood thinners. She had a ground level fall. She states she got up to go to the bathroom. States she had an episode of vertigo. This is not uncommon for her. She fell down. She injured her left wrist. There was no loss of consciousness. No neck pain. No lower extremity pain. EMS was called. Her left wrist was put into a splint and she was brought here to the emergency department for evaluation. She states that her vertigo has improved but not completely resolved. Related Data Home Medications Medication Instructions Recorded Confirmed fluticasone fur. 100 mcg-umeclid 1 inh inhalation DAILY 06/18/21 02/26/23 62.5 mcg-vilant 25 mcg inhalat.powder (Trelegy Ellipta) Previous Rx's Medication Instructions Recorded albuterol sulfate 90 mcg/actuation 2 puff inhalation Q4-6H #8.5 grams 06/11/22 aerosol inhaler fluticasone propionate 50 2 spray intranasal DAILY #16 grams 06/11/22 mcg/actuation nasal spray,suspension (Flonase Allergy Relief) leflunomide 20 mg tablet 20 mg PO DAILY #90 tabs 06/11/22 metoprolol succinate 25 mg 25 mg PO BID #180 tabs 06/11/22 tablet,extended release 24 hr tiotropium bromide 18 mcg capsule 1 cap inhalation DAILY #1 inh 06/11/22 with inhalation device (Spiriva with HandiHaler) triamterene 37.5 1 tab PO DAILY #90 tabs 06/11/22 mg-hydrochlorothiazide 25 mg tablet ferrous sulfate 325 mg (65 mg 325 mg PO DAILY #90 tabs 11/14/22 iron) tablet mecobalamin (vitamin B12) 1,000 1,000 mcg PO DAILY #90 tabs 11/14/22 mcg chewable tablet pravastatin 10 mg tablet 10 mg PO BEDTIME #90 tabs 01/09/23 ondansetron 4 mg disintegrating 4 mg PO Q8H #30 tabs 02/06/23 tablet polyethylene glycol 3350 17 See Rx Instructions PO DAILY #238 02/06/23 gram/dose oral powder (Miralax) grams nitrofurantoin macrocrystal 100 mg 100 mg PO BID #20 caps 02/26/23 capsule quetiapine 25 mg tablet See Rx Instructions .Route 03/09/23 .COMPLEX #14 tabs cephalexin 500 mg capsule 500 mg PO QID #40 caps 03/17/23 omeprazole 40 mg capsule,delayed 40 mg PO DAILY PRN heartburn #60 04/13/23 release caps Allergies Allergy/AdvReac Type Severity Reaction Status Date / Time codeine [CODEINE] Allergy Mild N & V Verified 02/26/23 14:23 Penicillins [PENICILLINS] Allergy Mild RASH Verified 02/26/23 14:23 Sulfa (Sulfonamide Allergy Mild Nausea Verified 02/26/23 14:23 Antibiotics) oxycodone Allergy Unknown Verified 02/26/23 14:23 sulfamethoxazole Allergy Unknown Verified 02/26/23 14:23 [From Bactrim] trimethoprim [From Bactrim] Allergy Unknown Verified 02/26/23 14:23 atorvastatin AdvReac Intermediate Muscle Pain Verified 02/26/23 14:23 hydrocodone AdvReac Intermediate NAUSEA/VOMI Verified 02/26/23 14:23 TING Review of Systems Musculoskeletal Musculoskeletal: Reports system reviewed and no additional complaints, except as documented Integumentary/Breasts Skin/Breast: Reports system reviewed and no additional complaints, except as documented Neurologic Neurologic: Reports system reviewed and no additional complaints, except as documented Hematologic/Lymphatic On Anticoagulants: No Patient History Medical History C. difficile colitis COPD (chronic obstructive pulmonary disease) Rheumatoid arthritis with positive rheumatoid factor (10/01/16) Surgical History Status post delivery Family History Sister Age: 85 Hypertension Social History household members: none Smoking Status: Former smoker alcohol intake: current Smoking Status: Former smoker alcohol intake frequency: 0-2 drinks per day Substance Use Type: does not use Exam Initial Vital Signs Initial Vital Signs: Vital Signs Temperature 98.7 F 06/09/23 02:53 Pulse Rate 83 06/09/23 02:53 Respiratory Rate 16 06/09/23 02:53 Blood Pressure 127/69 06/09/23 02:53 Pulse Oximetry 94 06/09/23 02:53 Oxygen Delivery Method Nasal Cannula 06/09/23 02:53 Oxygen Flow Rate 3 06/09/23 02:53 HENMT Head: normal to inspection and normocephalic Resp Effort & Inspection: normal respiratory effort Cardio Rate: regular rate Pulses: radial pulses present on the left Back/Spine/Pelvis Cervical Spine: No cervical spinal tenderness Skin Other: Small 1 cm x 1 cm skin abrasion to the lateral left elbow. She also has bruising to the left wrist. Extrem Other: Her left shoulder and left elbow unremarkable. She is discomfort with palpation or movement of the left wrist. Procedures Orthopedic Splinting/Casting Injury #1: Side: left Upper Extremity Injury Location: wrist Upper Extremity Immobilizer: thumb spica Post splinting neuro exam: no change Post splinting vascular exam: no change Placed by: Provider Scores GCS [place] coma scale eye opening: Spontaneous [place] coma scale verbal response: Orientated [place] coma scale motor response: Obey commands [place] coma scale total score: 15 Nexus Score for C-Spine Focal Neurologic deficit present: No Midline spinal tenderness present: No Altered level of conciousness present: No Intoxication present: No Distracting Injury Present: No Nexus Criteria for C-spine: 0 Course Orders Ordered: ED Orders 06/09/23 02:50 XR wrist LT min 3V Stat Vital Signs Vital signs: Vital Signs - 8 hr 06/09/23 02:53 Temperature 98.7 F Pulse Rate 83 Respiratory Rate 16 Blood Pressure 127/69 Pulse Oximetry 94 Oxygen Delivery Method Nasal Cannula Oxygen Flow Rate 3 Medical Decision Making Imaging Data Extremity x-ray #1: My Impression: Intra-articular distal radius fracture MDM Narrative Medical decision making narrative: Patient does have a distal radius fracture. Is minimally displaced. She is neurovascularly intact. She was placed in a thumb spica splint. No other injuries from the event. C-spine cleared by nexus criteria. The abrasion on her left elbow needs no intervention here in the ER. No indication for any further radiologic studies other than the left wrist x-ray. She was given return precautions follow-up instructions. She expressed understanding and agreement. Discharge Plan Departure Patient Disposition: Home Clinical Impression: Fracture of left wrist, Abrasion of skin Instructions: DI for Wrist Fracture, How to Take Care of Your Splint, DI for Abrasion Activity Restrictions/Additional Instructions: The splint that was placed today does need to be treated like a cast. You need to keep it on and keep it clean and keep it dry. Please contact the orthopedic doctors with a number provided below for a follow-up. Return to the emergency department for new or worsening symptoms. Prescriptions: No Action ferrous sulfate 325 mg (65 mg iron) tablet 325 mg PO DAILY Qty: 90 1RF mecobalamin (vitamin B12) 1,000 mcg tablet,chewable 1,000 mcg PO DAILY Qty: 90 3RF quetiapine 25 mg tablet See Rx Instructions .ROUTE .COMPLEX Qty: 14 0RF Dose Instruction: TAKE (1/2) TABLET BY MOUTH ONCE DAILY AT BEDTIME NEEDED FOR INSOMNIA Rx Instructions: TAKE (1/2) TABLET BY MOUTH ONCE DAILY AT BEDTIME NEEDED FOR INSOMNIA cephalexin 500 mg capsule 500 mg PO QID Qty: 40 0RF omeprazole 40 mg capsule,delayed release(DR/EC) 40 mg PO DAILY PRN (Reason: heartburn) Qty: 60 3RF Trelegy Ellipta 100-62.5-25 mcg blister with device 1 inh inhalation DAILY triamterene-hydrochlorothiazid 37.5-25 mg tablet 1 tab PO DAILY Qty: 90 3RF Spiriva with HandiHaler 18 mcg capsule, w/inhalation device 1 cap inhalation DAILY Qty: 1 3RF Rx Instructions: puncture 1 cap using device; one dose = 2 inhalations metoprolol succinate 25 mg tablet extended release 24 hr 25 mg PO BID Qty: 180 3RF leflunomide 20 mg tablet 20 mg PO DAILY Qty: 90 3RF fluticasone propionate [Flonase Allergy Relief] 50 mcg/actuation spray,suspension 2 spray intranasal DAILY Qty: 16 5RF Rx Instructions: administer into each nostril albuterol sulfate 90 mcg/actuation HFA aerosol inhaler 2 puff inhalation Q4-6H Qty: 8.5 3RF pravastatin 10 mg tablet 10 mg PO BEDTIME Qty: 90 0RF ondansetron 4 mg tablet,disintegrating 4 mg PO Q8H Qty: 30 0RF Rx Instructions: Take one to two tablets three times daily as needed for nausea polyethylene glycol 3350 [Miralax] 17 gram/dose powder See Rx Instructions PO DAILY Qty: 238 0RF Rx Instructions: Take one 1/2 scoop in water with each meal nitrofurantoin macrocrystal 100 mg capsule 100 mg PO BID Qty: 20 0RF Rx Instructions: must administer with a meal/food Referrals: Marysol Mascorro MD [Physician] - Prudencio Hernandez MD [Primary Care Provider] - Stand Alone Forms: Patient Portal/API
[2023-06-09 02:53] VITALS: BP 127/69; PULSE 83; RESP 16; TEMP 37.1; O2SAT 94; BMI 20.9
== END 2023-06-09 04:15 | disposition home or self-care (01) ==
PROVIDERS: Emergency Provider Emergency Medicine; PCP Family Medicine
DX: S62.102A Fracture of unspecified carpal bone, left wrist, initial encounter for closed fracture (principal); W18.30XA Fall on same level, unspecified, initial encounter; Z79.01 Long term (current) use of anticoagulants
CPT/HCPCS: 29125; 73110; 99283; 99284

== ENCOUNTER 2023-06-16 00:40 | Emergency (ER) | payer MEDICARE, MEDICAID, SELFPAY ==
[2022-01-29 18:26] VITALS: BMI 24.7
[2023-06-16] VITALS (13 sets, daily range): BP systolic 120–140; BP diastolic 67–78; PULSE 89–96; RESP 16; TEMP 36.6; O2SAT 91–94; BMI 21.6
--- NOTE | 2023-06-16 02:09 | DI.CT.S_ITS ---
PROCEDURE: CT HEAD/BRAIN WO CON INDICATIONS: head injury TECHNIQUE: Noncontrast 4.5 mm thick angled axial sections acquired from the foramen magnum to the vertex, with coronal and sagittal reformats. For radiation dose reduction, the following was used: automated exposure control, adjustment of mA and/or kV according to patient size. COMPARISON: [facility], CT, CT HEAD/BRAIN WO CON, 01/29/2022, 13:52. FINDINGS: Image quality: Excellent. CSF spaces: Basal cisterns are patent. No extra-axial fluid collections. The ventricles are symmetric in size and shape. Brain: No intracranial bleeds or masses. There is cerebral volume loss for age, with resultant ventricular and sulcal prominence. There are periventricular and deep white matter chronic small vessel ischemic changes. There is intracranial internal carotid artery atherosclerosis. Skull and face: Calvarium and visualized facial bones appear intact, without suspicious lesions. Right frontal parietal scalp hematoma. Sinuses: Sphenoid sinus mucosal thickening with fluid levels bilaterally, right greater than left. IMPRESSION: 1. No acute intracranial process. 2. Moderate atrophy and chronic microvascular ischemic changes. 3. Right frontal parietal scalp hematoma. The above findings are concordant with preliminary report. Dictated by: Tori Lira M.D. on 06/16/2023 at 8:32 Approved by: Tori Lira M.D. on 06/16/2023 at 8:33
--- NOTE | 2023-06-16 07:11 | ED_ITS ---
HPI - Fall General Chief Complaint: Fall Stated Complaint: GLF, head pain Time Seen by Provider: 06/16/23 02:14 Source: patient and EMS Mode of arrival: EMS History of Present Illness HPI Narrative: It is a 82-year-old female who has frequent falls she is not on anticoagulation, resides at [facility]. She fell June 09 with a left distal radius fracture she was splinted. She reports that she falls regularly but thought that she is been doing well. She says that her legs just give out. She says it has been worked up. Last night she got up and fell hitting her. She thought that she had been doing well. She is not sure if she lost consciousness. She denies any chest pain or palpitations. She reports that she does throw up but throws up once a day. She reports that this has been happening off and on for awhile as well. She is currently complaining of head pain and left arm pain. Related Data Home Medications Medication Instructions Recorded Confirmed fluticasone fur. 100 mcg-umeclid 1 inh inhalation DAILY 06/18/21 02/26/23 62.5 mcg-vilant 25 mcg inhalat.powder (Trelegy Ellipta) Previous Rx's Medication Instructions Recorded albuterol sulfate 90 mcg/actuation 2 puff inhalation Q4-6H #8.5 grams 06/11/22 aerosol inhaler fluticasone propionate 50 2 spray intranasal DAILY #16 grams 06/11/22 mcg/actuation nasal spray,suspension (Flonase Allergy Relief) leflunomide 20 mg tablet 20 mg PO DAILY #90 tabs 06/11/22 metoprolol succinate 25 mg 25 mg PO BID #180 tabs 06/11/22 tablet,extended release 24 hr tiotropium bromide 18 mcg capsule 1 cap inhalation DAILY #1 inh 06/11/22 with inhalation device (Spiriva with HandiHaler) triamterene 37.5 1 tab PO DAILY #90 tabs 06/11/22 mg-hydrochlorothiazide 25 mg tablet ferrous sulfate 325 mg (65 mg 325 mg PO DAILY #90 tabs 11/14/22 iron) tablet mecobalamin (vitamin B12) 1,000 1,000 mcg PO DAILY #90 tabs 11/14/22 mcg chewable tablet pravastatin 10 mg tablet 10 mg PO BEDTIME #90 tabs 01/09/23 ondansetron 4 mg disintegrating 4 mg PO Q8H #30 tabs 02/06/23 tablet polyethylene glycol 3350 17 See Rx Instructions PO DAILY #238 02/06/23 gram/dose oral powder (Miralax) grams nitrofurantoin macrocrystal 100 mg 100 mg PO BID #20 caps 02/26/23 capsule quetiapine 25 mg tablet See Rx Instructions .Route 03/09/23 .COMPLEX #14 tabs cephalexin 500 mg capsule 500 mg PO QID #40 caps 03/17/23 omeprazole 40 mg capsule,delayed 40 mg PO DAILY PRN heartburn #60 04/13/23 release caps nitrofurantoin 100 mg PO Q12H 5 days #10 caps 06/16/23 monohydrate/macrocrystals 100 mg capsule (Macrobid) Allergies Allergy/AdvReac Type Severity Reaction Status Date / Time codeine [CODEINE] Allergy Mild N & V Verified 02/26/23 14:23 Penicillins [PENICILLINS] Allergy Mild RASH Verified 02/26/23 14:23 Sulfa (Sulfonamide Allergy Mild Nausea Verified 02/26/23 14:23 Antibiotics) oxycodone Allergy Unknown Verified 02/26/23 14:23 sulfamethoxazole Allergy Unknown Verified 02/26/23 14:23 [From Bactrim] trimethoprim [From Bactrim] Allergy Unknown Verified 02/26/23 14:23 atorvastatin AdvReac Intermediate Muscle Pain Verified 02/26/23 14:23 hydrocodone AdvReac Intermediate NAUSEA/VOMI Verified 02/26/23 14:23 TING Review of Systems Review of Systems ROS Unobtainable: All systems reviewed & are unremarkable except as noted in HPI and below Patient History Medical History C. difficile colitis COPD (chronic obstructive pulmonary disease) Rheumatoid arthritis with positive rheumatoid factor (10/01/16) Surgical History Status post delivery Family History Sister Age: 86 Hypertension Social History household members: none Smoking Status: Former smoker alcohol intake: current Smoking Status: Former smoker alcohol intake frequency: 0-2 drinks per day Substance Use Type: does not use Exam Initial Vital Signs Initial Vital Signs: Vital Signs Temperature 98 F 06/16/23 00:39 Pulse Rate 96 H 06/16/23 00:39 Respiratory Rate 16 06/16/23 00:39 Blood Pressure 120/67 06/16/23 00:39 Pulse Oximetry 93 06/16/23 00:39 Oxygen Delivery Method Room Air 06/16/23 00:39 GENERAL: Well-appearing, well-nourished and in no acute distress. HEENT: Head right-sided parietal contusion no depression EOMI, pupils reactive, face symmetric, moist mucous membranes NECK: Supple no vertebral tenderness CARDIOVASCULAR: Regular rate and rhythm without murmurs, rubs or gallops. RESPIRATORY: Breath sounds equal bilaterally, no wheezes rales or rhonchi. ABDOMEN: Soft, nontender. Normoactive bowel sounds all 4 quadrants. No guarding or rebound. EXTREMITIES: Normal range of motion, no clubbing or edema. Neurovascularly intact Left arm some spica splint in place NEUROLOGICAL: Alert and oriented x4.Normal gait and speech. Cranial nerves II through XII grossly intact. SKIN: Warm, dry, no laceration, no petechiae, no rashes or lesions. Course Orders Ordered: ED Orders 06/16/23 02:09 CT head/brain wo con Stat 06/16/23 08:00 Urine Culture Stat Urine Microscopic Stat Vital Signs Vital signs: Vital Signs - 8 hr 06/16/23 02:00 06/16/23 02:00 06/16/23 02:39 Pulse Rate 90 92 H Blood Pressure 132/74 Pulse Oximetry 91 92 Oxygen Delivery Method 06/16/23 03:00 06/16/23 03:30 06/16/23 04:00 Pulse Rate 91 H 91 H 91 H Blood Pressure Pulse Oximetry 91 91 Oxygen Delivery Method Room Air 06/16/23 04:01 06/16/23 04:01 06/16/23 04:30 Pulse Rate 93 H 94 H Blood Pressure 140/78 Pulse Oximetry 91 Oxygen Delivery Method 06/16/23 05:00 06/16/23 05:30 Pulse Rate 91 H 89 Blood Pressure Pulse Oximetry 94 93 Oxygen Delivery Method MDM - Fall Lab Data Labs: Lab Results 06/16/23 Range/Units 08:00 Urine RBC 0-1/hpf (0-5/HPF) Urine WBC 10-30/hpf H (0-5/HPF) Ur Squamous Epith Cells 0-1 /hpf (0-5/HPF) Amorphous Sediment 1+ Urine Bacteria Many (>30) H (None) Ur Culture Indicated? Specimen cultured Urine Dip Bedside Urine Glucose Negative Bedside Urine Bilirubin - Negative Bedside Urine Ketone - Negative Urine Specific [place] 1.020 Bedside Urine Occult Blood - Negative Bedside Urine pH 6.0 Bedside Urine Protein - Negative Bedside Urine Urobilinogen - Negative Bedside Urine Nitrite - Negative Bedside Urine Leukocytes +++ [address] scan - head: Radiologist's Impression: Preliminary report no intracranial hemorrhage or mass effect seen. Sphenoid sinusitis. Hemorrhage is less likely not excluded. MDM Narrative Medical decision making narrative: Patient 82-year-old female who falls regularly. She fell last week broke distal radius fell again today and hit her head. She is found have a UTI. She reports that she frequently has UTIs Macrobid seems to work the best for her. She is afebrile not septic. She ambulated in the ED without any difficulty and went to the restroom. She is been monitored in the ER for numerous hours waiting to be seen. At this time think reasonable to start her on antibiotics for her UTI. Her vitals are stable. Discharge Plan Departure Patient Disposition: Home Clinical Impression: Acute UTI, Fall Instructions: DI for Urinary Tract Infection (UTI) Activity Restrictions/Additional Instructions: *You have been diagnosed with ground level fall, UTI *What to do: Use a walker so that you do not fall. You do have a bladder infection. *Continue to take medications as directed Macrobid 100 mg twice a day for 5 days--> sent to [facility] *Follow up with your primary care provider in 2-3 days or call [phone] Call orthopedics in regards to your wrist fracture *Return to ER if you should have increased falling confusion weakness or any new, worsening or concerning symptoms Prescriptions: New nitrofurantoin monohyd/m-cryst [Macrobid] 100 mg capsule 100 mg PO Q12H 5 Days Qty: 10 0RF Rx Instructions: must administer with a meal/food No Action ferrous sulfate 325 mg (65 mg iron) tablet 325 mg PO DAILY Qty: 90 1RF mecobalamin (vitamin B12) 1,000 mcg tablet,chewable 1,000 mcg PO DAILY Qty: 90 3RF quetiapine 25 mg tablet See Rx Instructions .ROUTE .COMPLEX Qty: 14 0RF Dose Instruction: TAKE (1/2) TABLET BY MOUTH ONCE DAILY AT BEDTIME NEEDED FOR INSOMNIA Rx Instructions: TAKE (1/2) TABLET BY MOUTH ONCE DAILY AT BEDTIME NEEDED FOR INSOMNIA cephalexin 500 mg capsule 500 mg PO QID Qty: 40 0RF omeprazole 40 mg capsule,delayed release(DR/EC) 40 mg PO DAILY PRN (Reason: heartburn) Qty: 60 3RF Trelegy Ellipta 100-62.5-25 mcg blister with device 1 inh inhalation DAILY triamterene-hydrochlorothiazid 37.5-25 mg tablet 1 tab PO DAILY Qty: 90 3RF Spiriva with HandiHaler 18 mcg capsule, w/inhalation device 1 cap inhalation DAILY Qty: 1 3RF Rx Instructions: puncture 1 cap using device; one dose = 2 inhalations metoprolol succinate 25 mg tablet extended release 24 hr 25 mg PO BID Qty: 180 3RF leflunomide 20 mg tablet 20 mg PO DAILY Qty: 90 3RF fluticasone propionate [Flonase Allergy Relief] 50 mcg/actuation spray,suspension 2 spray intranasal DAILY Qty: 16 5RF Rx Instructions: administer into each nostril albuterol sulfate 90 mcg/actuation HFA aerosol inhaler 2 puff inhalation Q4-6H Qty: 8.5 3RF pravastatin 10 mg tablet 10 mg PO BEDTIME Qty: 90 0RF ondansetron 4 mg tablet,disintegrating 4 mg PO Q8H Qty: 30 0RF Rx Instructions: Take one to two tablets three times daily as needed for nausea polyethylene glycol 3350 [Miralax] 17 gram/dose powder See Rx Instructions PO DAILY Qty: 238 0RF Rx Instructions: Take one 1/2 scoop in water with each meal nitrofurantoin macrocrystal 100 mg capsule 100 mg PO BID Qty: 20 0RF Rx Instructions: must administer with a meal/food Referrals: Prudencio Hernandez MD [Primary Care Provider] - Stand Alone Forms: Patient Portal/API
[2023-06-16 08:37] LABS: Amorphous Sediment Urine 1+; Bacteria Urine Many (>30); Culture Indicated Urine Specimen Cultured; RBC Urine 0-1/HPF (0-5/HPF); Squamous Epithelial Cell Urine 0-1 /HPF (0-5/HPF); WBC Urine 10-30/HPF (0-5/HPF)
== END 2023-06-16 09:27 | disposition home or self-care (01) ==
PROVIDERS: Emergency Provider Emergency Medicine; PCP Family Medicine
DX: N39.0 Urinary tract infection, site not specified (principal); S09.90XA Unspecified injury of head, initial encounter; M79.605 Pain in left leg; W19.XXXA Unspecified fall, initial encounter
CPT/HCPCS: 70450; 81003; 81015; 87086; 99282; 99284

== ENCOUNTER → 2023-06-23 07:14 | Outpatient (ROUT) | payer MEDICARE, MEDICAID, SELFPAY ==
[2022-01-29 18:26] VITALS: BMI 24.7
[2023-06-23 07:49] LABS: Hematocrit 29.2 % (36-46); Hemoglobin 9.1 g/dL (12.0-16.0); Mean Corpuscular Hemoglobin 16.7 PG (26-34); Mean Corpuscular Volume 53.8 fL (80-100); Platelet Count 172 X10^3/uL (150-400); Red Blood Cell Count 5.43 X10^6/uL (4.0-5.2); Red Cell Distribution Width 17.8 % (11.6-14.8)
[2023-06-23 07:51] LABS: Add Manual Diff / Slide Review YES
[2023-06-23 07:58] LABS: Alanine Aminotransferase 19 IU/L (<35); Albumin 3.7 g/dL (3.5-5.0); Alkaline Phosphatase 105 U/L (38-126); Aspartate Aminotransferase 32 IU/L (14-36); Bilirubin Total 0.4 mg/dL (0.2-1.3); Blood Urea Nitrogen 50 mg/dL (7-17); Calcium 8.7 mg/dL (8.4-10.2); Carbon Dioxide 31 mmol/L (22-32); Chloride 101 mmol/L (98-107); Estimated Glomerular Filt Rate 39 mL/min (>60); Globulin 3.6 g/dL (1.7-4.1); Glucose 98 mg/dL (80-110); HEMOLYSIS 25 (0-50); Potassium 4.1 mmol/L (3.4-5.1); Sodium 138 mmol/L (137-145); Total Protein 7.3 g/dL (6.3-8.2)
[2023-06-23 08:02] LABS: Neutrophils Absolute Manual 1140 /uL (3000-5900); Total Cells Counted 100
[2023-06-23 08:03] LABS: Anisocytosis 1+; Microcytosis 3+
[2023-06-23 08:04] LABS: Ovalocytes 1+
== END ==
PROVIDERS: PCP Family Medicine; Visit Provider Nurse Practitioner Family
DX: J44.9 Chronic obstructive pulmonary disease, unspecified (principal); I10 Essential (primary) hypertension
CPT/HCPCS: 36415; 80053; 85007; 85025

== ENCOUNTER → 2023-07-21 07:49 | Outpatient (ROUT) | payer MEDICARE, MEDICAID, SELFPAY ==
[2022-01-29 18:26] VITALS: BMI 24.7
[2023-07-21 09:06] LABS: Basophils Absolute Auto 0 /uL (0-100); Basophils Percent Auto 0.5 % (0-2); Eosinophils Absolute Auto 200 /uL (0-450); Eosinophils Percent Auto 2.5 % (2-4); Hematocrit 28.3 % (36-46); Hemoglobin 8.7 g/dL (12.0-16.0); Lymphocytes Absolute Auto 3800 /uL (1100-4500); Lymphocytes Percent Auto 58.3 % (25-40); Mean Corpuscular HGB Conc 30.9 % (30-36); Mean Corpuscular Hemoglobin 16.8 PG (26-34); Mean Corpuscular Volume 54.3 fL (80-100); Monocytes Absolute Auto 1200 /uL (0-900); Monocytes Percent Auto 18.2 % (3-14); Neutrophils Absolute Auto 1300 /uL (1500-7000); Neutrophils Percent Auto 20.5 % (50-75); Platelet Count 111 X10^3/uL (150-400); Red Blood Cell Count 5.21 X10^6/uL (4.0-5.2); Red Cell Distribution Width 18.7 % (11.6-14.8); White Blood Cell Count 6.6 X10^3/uL (4.5-11.0)
[2023-07-21 09:21] LABS: Add Manual Diff / Slide Review SLIDE REVIEW
[2023-07-21 09:22] LABS: Anisocytosis 3+; Hypochromasia 1+; Microcytosis 3+; Ovalocytes 1+
== END ==
PROVIDERS: PCP Family Medicine; Visit Provider Nurse Practitioner Family
DX: Z51.81 Encounter for therapeutic drug level monitoring (principal)
CPT/HCPCS: 36415; 85025

== ENCOUNTER 2023-07-23 21:58 | Observation (INO) | payer MEDICARE, MEDICAID, SELFPAY ==
[2022-01-29 18:26] VITALS: BMI 24.7
[2023-07-23] VITALS (7 sets, daily range): BP systolic 108–120; BP diastolic 58–69; PULSE 118–123; RESP 33–44; TEMP 36.4; O2SAT 92–94
--- NOTE | 2023-07-23 22:02 | DI.RAD.S_ITS ---
PROCEDURE: XR CHEST 1V INDICATIONS: SOB TECHNIQUE: One view of the chest was acquired. COMPARISON: [facility], CR, XR CHEST 1V, 05/04/2020, 11:21. FINDINGS: Surgical changes and devices: None. Lungs and pleura: Consolidative radiopacities are present at the right lung base. There is likely a right sub pulmonic pleural effusion. The left lung is clear. Mediastinum: Mediastinal contours appear normal. Heart size is normal. Bones and chest wall: No suspicious bony lesions. Overlying soft tissues appear unremarkable. IMPRESSION: Right pulmonary radiopacities and pleural effusion. Differential considerations include infection, aspiration, and neoplasm. Short interval follow-up to resolution is recommended to exclude underlying neoplasm. Dictated by: Amelia Romero M.D. on 07/23/2023 at 22:30 Approved by: Amelia Romero M.D. on 07/23/2023 at 22:30
[2023-07-23 22:17] LABS: Alanine Aminotransferase 20 IU/L (<35); Albumin 4.1 g/dL (3.5-5.0); Albumin Globulin Ratio 0.9 (1.0-2.8); Alkaline Phosphatase 135 U/L (38-126); Aspartate Aminotransferase 33 IU/L (14-36); BUN Creatinine Ratio 29.1 (6-22); Bilirubin Total 0.8 mg/dL (0.2-1.3); Blood Urea Nitrogen 44 mg/dL (7-17); Calcium 9.3 mg/dL (8.4-10.2); Carbon Dioxide 28 mmol/L (22-32); Chloride 102 mmol/L (98-107); Creatine Kinase 29 U/L (30-135); Estimated Glomerular Filt Rate 34 mL/min (>60); Globulin 4.5 g/dL (1.7-4.1); Glucose 178 mg/dL (80-110); HEMOLYSIS 16 (0-50); Lipase 20 U/L (23-300); Potassium 4.1 mmol/L (3.4-5.1); Sodium 141 mmol/L (137-145); Total Protein 8.6 g/dL (6.3-8.2)
[2023-07-23] MEDS: methylPREDNISolone 125 MG/2 ML VIAL IV (22:19)
--- NOTE | 2023-07-23 22:23 | ED_ITS ---
HPI - General Adult General Chief complaint: Shortness of Breath/Dyspnea Stated complaint: SOB Time Seen by Provider: 07/23/23 21:58 Source: patient and EMS Mode of arrival: EMS Limitations: no limitations History of Present Illness HPI narrative: 82-year-old female. Is a DNR/DNI with limited interventions. Has a history of COPD. Is on 3 L of oxygen at baseline per her report. Also has a history of CHF. Her last echocardiogram was a couple years ago. Ejection fraction 40-45%. She is not currently on Lasix. Was brought to the emergency department by EMS for evaluation what sounds like a fairly sudden onset of shortness of breath. She received 2 DuoNebs prior to arrival. Patient denies chest pain. Does have a cough. No fevers. Has baseline memory loss and is at her baseline mental status per EMS who received this information from nursing facility. Patient's HPI and review of systems somewhat limited given her mental status and also her presenting condition. Related Data Home Medications Medication Instructions Recorded Confirmed fluticasone fur. 100 mcg-umeclid 1 inh inhalation DAILY 06/18/21 02/26/23 62.5 mcg-vilant 25 mcg inhalat.powder (Trelegy Ellipta) Previous Rx's Medication Instructions Recorded albuterol sulfate 90 mcg/actuation 2 puff inhalation Q4-6H #8.5 grams 06/11/22 aerosol inhaler fluticasone propionate 50 2 spray intranasal DAILY #16 grams 06/11/22 mcg/actuation nasal spray,suspension (Flonase Allergy Relief) leflunomide 20 mg tablet 20 mg PO DAILY #90 tabs 06/11/22 metoprolol succinate 25 mg 25 mg PO BID #180 tabs 06/11/22 tablet,extended release 24 hr tiotropium bromide 18 mcg capsule 1 cap inhalation DAILY #1 inh 06/11/22 with inhalation device (Spiriva with HandiHaler) triamterene 37.5 1 tab PO DAILY #90 tabs 06/11/22 mg-hydrochlorothiazide 25 mg tablet ferrous sulfate 325 mg (65 mg 325 mg PO DAILY #90 tabs 11/14/22 iron) tablet mecobalamin (vitamin B12) 1,000 1,000 mcg PO DAILY #90 tabs 11/14/22 mcg chewable tablet pravastatin 10 mg tablet 10 mg PO BEDTIME #90 tabs 01/09/23 ondansetron 4 mg disintegrating 4 mg PO Q8H #30 tabs 02/06/23 tablet polyethylene glycol 3350 17 See Rx Instructions PO DAILY #238 02/06/23 gram/dose oral powder (Miralax) grams nitrofurantoin macrocrystal 100 mg 100 mg PO BID #20 caps 02/26/23 capsule quetiapine 25 mg tablet See Rx Instructions .Route 03/09/23 .COMPLEX #14 tabs cephalexin 500 mg capsule 500 mg PO QID #40 caps 03/17/23 omeprazole 40 mg capsule,delayed 40 mg PO DAILY PRN heartburn #60 04/13/23 release caps Allergies Allergy/AdvReac Type Severity Reaction Status Date / Time codeine [CODEINE] Allergy Mild N & V Verified 02/26/23 14:23 Penicillins [PENICILLINS] Allergy Mild RASH Verified 02/26/23 14:23 Sulfa (Sulfonamide Allergy Mild Nausea Verified 02/26/23 14:23 Antibiotics) oxycodone Allergy Unknown Verified 02/26/23 14:23 sulfamethoxazole Allergy Unknown Verified 02/26/23 14:23 [From Bactrim] trimethoprim [From Bactrim] Allergy Unknown Verified 02/26/23 14:23 atorvastatin AdvReac Intermediate Muscle Pain Verified 02/26/23 14:23 hydrocodone AdvReac Intermediate NAUSEA/VOMI Verified 02/26/23 14:23 TING Review of Systems Review of Systems Narrative: Limited review of systems ENT Ears, Nose, Mouth, and Throat: Reports system reviewed and no additional complaints, except as documented Respiratory Respiratory: Reports system reviewed and no additional complaints, except as documented Gastrointestinal Gastrointestinal: Reports system reviewed and no additional complaints, except as documented Genitourinary Genitourinary: Reports system reviewed and no additional complaints, except as documented Integumentary/Breasts Skin/Breast: Reports system reviewed and no additional complaints, except as documented Hematologic/Lymphatic On Anticoagulants: No Patient History Medical History C. difficile colitis COPD (chronic obstructive pulmonary disease) Rheumatoid arthritis with positive rheumatoid factor (10/01/16) Surgical History Status post delivery Family History Sister Age: 86 Hypertension Social History household members: none Smoking Status: Former smoker alcohol intake: current Smoking Status: Former smoker alcohol intake frequency: 0-2 drinks per day Substance Use Type: does not use Exam Initial Vital Signs Initial Vital Signs: Vital Signs Pulse Rate 118 H 07/23/23 22:01 Pulse Oximetry 94 07/23/23 22:01 Const General: ill appearing HENMT Head: normal to inspection and normocephalic Chest Other: Nodular masses left breast region Resp Effort & Inspection: labored, respiratory distress and tachypneic Auscultation: diminished lung sounds and wheezes Cardio Rate: tachycardic Neuro General: patient alert Extrem General: capillary refill normal Course Orders Ordered: ED Orders 07/23/23 21:58 Complete Blood Count AUTO DIFF Stat Comprehensive Metabolic Panel Stat Lipase Stat NT-proBNP (BNP-Adult 18+) Stat Procalcitonin Stat Troponin & CK Cardiac Panel Stat 07/23/23 22:02 XR chest 1V Stat EKG-12 Lead Stat RT Consult Eval and Treat Now 07/23/23 22:38 Respiratory Panel (Film Array) Stat 07/24/23 00:40 Consult to Cardio/Pulmonary Rehabilitation Routine RT Consult Eval and Treat Now 07/24/23 00:45 Comprehensive Metabolic Panel DAILY Albuterol (Albuterol 2.5 Mg/3 Ml Neb (Adult)) 2.5 mg INH [id number] PRN PRN Reason: Shortness Of Breath Or Wheezing Albuterol/Ipratropium (Albuterol/Ipratropium 3 Ml Ampul) 3 ml INH [id number] KELLE Azithromycin (Azithromycin 250 Mg Tablet) 500 mg PO DAILY [facility] Methylprednisolone (Methylprednisolone 125 Mg/2 Ml Vial) 60 mg IV Q6HR KELLE Discontinued Medications Albuterol (Albuterol 2.5 Mg/3 Ml Neb (Adult)) 20 mg INH NOW ONE Stop: 07/23/23 22:13 Last Admin: 07/23/23 22:38 Dose: 20 mg Documented By: MR Albuterol/Ipratropium (Albuterol/Ipratropium 3 Ml Ampul) 3 ml INH NOW ONE Stop: 07/23/23 22:04 Last Admin: 07/23/23 22:31 Dose: 3 ml Documented By: Methylprednisolone (Methylprednisolone 125 Mg/2 Ml Vial) 125 mg IV NOW ONE Stop: 07/23/23 22:01 Last Admin: 07/23/23 22:19 Dose: 125 mg Documented By: ROSEY Vital Signs Vital signs: Vital Signs - 8 hr 07/23/23 22:03 07/23/23 22:42 07/23/23 22:01 Temperature 97.6 F Pulse Rate 118 H 118 H Respiratory Rate 38 H Blood Pressure 115/66 Pulse Oximetry 94 94 94 Oxygen Delivery Method Aerosol Mask Nasal Cannula Oxygen Flow Rate 3.5 07/23/23 22:02 07/23/23 22:02 07/23/23 22:30 Temperature Pulse Rate 118 H Respiratory Rate Blood Pressure 115/66 108/58 L Pulse Oximetry 94 Oxygen Delivery Method Oxygen Flow Rate 07/23/23 22:30 07/23/23 23:00 07/23/23 23:00 Temperature Pulse Rate 118 H 121 H Respiratory Rate 33 H 39 H Blood Pressure 114/69 Pulse Oximetry 92 94 Oxygen Delivery Method Oxygen Flow Rate 07/23/23 23:30 07/23/23 23:30 07/24/23 00:00 Temperature Pulse Rate 123 H 126 H Respiratory Rate 44 H 64 H Blood Pressure 120/61 Pulse Oximetry 92 93 Oxygen Delivery Method Oxygen Flow Rate 07/24/23 00:01 07/24/23 00:01 07/24/23 00:22 Temperature Pulse Rate 126 H Respiratory Rate 71 H Blood Pressure 90/39 L 95/62 Pulse Oximetry 93 Oxygen Delivery Method Oxygen Flow Rate 07/24/23 00:22 07/24/23 00:30 07/24/23 00:30 Temperature Pulse Rate 126 H 126 H Respiratory Rate 32 H 42 H Blood Pressure 99/56 L Pulse Oximetry 91 90 L Oxygen Delivery Method Oxygen Flow Rate Medical Decision Making Medical Records Medical records reviewed: Yes I reviewed the patient's medical records. Lab Data Lab results reviewed: Yes I reviewed the patient's lab results. 07/23/23 21:58 07/23/23 21:58 Labs: Lab Results 07/23/23 07/23/23 07/23/23 Range/Units 21:58 21:58 22:38 WBC 9.1 (4.5-11.0) X10^3/uL RBC 5.81 H (4.0-5.2) X10^6/uL Hgb 9.8 L (12.0-16.0) g/dL Hct 31.0 L (36-46) % MCV 53.3 L (80-100) fL MCH 16.9 L (26-34) PG MCHC 31.7 (30-36) % RDW 18.4 H (11.6-14.8) % Plt Count Not Reportable Neut % (Auto) 71.2 (50-75) % Lymph % (Auto) 18.5 L (25-40) % [place] % (Auto) 8.9 (3-14) % Eos % (Auto) 0.8 L (2-4) % Baso % (Auto) 0.6 (0-2) % Neut # (Auto) 6500 (7146-9409) /uL Lymph # (Auto) 1700 (6867-4454) /uL [place] # (Auto) 800 (0-900) /uL Eos # (Auto) 100 (0-450) /uL Baso # (Auto) 100 (0-100) /uL Platelet Estimate Adequate on smear RBC Morphology See below Hypochromasia 1+ H Anisocytosis 2+ H Microcytosis 3+ H Ovalocytes 1+ H Sodium 141 (137-145) mmol/L Potassium 4.1 (3.4-5.1) mmol/L Chloride 102 (98-107) mmol/L Carbon Dioxide 28 (22-32) mmol/L BUN 44 H (7-17) mg/dL Creatinine 1.51 H (0.52-1.04) mg/dL Estimated GFR 34 L (>60) mL/min BUN/Creatinine Ratio 29.1 H (6-22) Glucose 178 H (80-110) mg/dL Calcium 9.3 (8.4-10.2) mg/dL Total Bilirubin 0.8 (0.2-1.3) mg/dL AST 33 (14-36) IU/L ALT 20 (<35) IU/L Alkaline Phosphatase 135 H (38-126) U/L Total Creatine Kinase 29 L (30-135) U/L Troponin I 0.118 H (0.01-0.034) ng/mL NT-Pro-B Natriuret Pep 2280 H (<450) pg/mL Total Protein 8.6 H (6.3-8.2) g/dL Albumin 4.1 (3.5-5.0) g/dL Globulin 4.5 H (1.7-4.1) g/dL Albumin/Globulin Ratio 0.9 L (1.0-2.8) Lipase 20 L (23-300) U/L Procalcitonin 0.28 (<0.5) ng/mL Chlamy pneumoniae PCR Not detected (Not Detect) Adenovirus (PCR) Not detected (Not Detect) B. pertussis DNA (PCR) Not detected (Not Detecte) B.parapertussis DNA PCR Not detected (Not Detecte) Coronavirus OC43 (PCR) Not detected (Not Detect) Coronavirus HKU1 (PCR) Not detected (Not Detect) Coronavirus 229E (PCR) Not detected (Not Detect) SARS-CoV-2 (PCR) Not detected (Not Detecte) Coronavirus NL63 (PCR) Not detected (Not Detect) Human Metapneumovir PCR Not detected (Not Detect) Influenza Type A (PCR) Not detected (Not Detect) Influenza Type B (PCR) Not detected (Not Detect) M. pneumoniae (PCR) Not detected (Not Detect) Parainfluenza 1 (PCR) Not detected (Not Detect) Parainfluenza 2 (PCR) Not detected (Not Detect) Parainfluenza 3 (PCR) Not detected (Not Detect) Parainfluenza 4 (PCR) Not detected (Not Detect) RSV (PCR) Not detected (Not Detect) Entero/Rhino (PCR) Not detected (Not Detect) Imaging Data Chest x-ray: Radiologist's Impression: PROCEDURE:? XR CHEST 1V ? INDICATIONS:? SOB ? TECHNIQUE:? One view of the chest was acquired.? ? COMPARISON:? [facility], , XR CHEST 1V, 05/04/2020, 11:21. ? FINDINGS:? ? Surgical changes and devices:? None.? ? Lungs and pleura:? Consolidative radiopacities are present at the right lung b ase.? There is likely a right sub pulmonic pleural effusion.? The left lung is clear. ? Mediastinum:? Mediastinal contours appear normal.? Heart size is normal.? ? Bones and chest wall:? No suspicious bony lesions.? Overlying soft tissues appear unremarkable.? ? IMPRESSION:? Right pulmonary radiopacities and pleural effusion.? Differential considerations include infection, aspiration, and neoplasm.? Short interval follow-up to resolution is recommended to exclude underlying neoplasm. ECG Data Attestation: I personally reviewed and interpreted this ECG as follows: Interpretation: Sinus tachycardia Ventricular rate 119 Left axis deviation QTC 492 LVH MDM Narrative Medical decision making narrative: She did seem to improve after the 20 mg of albuterol. She seems to be more alert and active. She denied chest pain. She stated that she did feel somewhat better. She is tachycardic however I suspect that this is from the amount of albuterol she is received. She has a history of heart failure. Not on Lasix. She is not clinically in heart failure. She does not have crackles. She is no lower extremity swelling. She does have an elevated BNP. I have low suspicion for pneumonia. Patient is requiring a higher level of oxygen by nasal cannula. She is at 5 L to maintain a saturation of 90%. Given her clinical presentation she does require admission to the hospital for further evaluation. Discussed th e case with Dr. Guallpa hospitalist on-call who will admit for further evaluation and treatment. Discharge Plan Departure Patient Disposition: Admitted As Inpatient Clinical Impression: COPD exacerbation, Hypoxia Admit Date/Time: 07/24/23 00:38 Admit Provider: Enmanuel Guallpa
[2023-07-23 22:29] LABS: NT-proBNP (BNP-Adult 18+) 2280 pg/mL (<450); Troponin I 0.118 ng/mL (0.01-0.034)
[2023-07-23] MEDS: ALBUTEROL/IPRATROPIUM 3 ML AMPUL INH (22:31)
[2023-07-23 22:34] LABS: Procalcitonin 0.28 ng/mL (<0.5)
[2023-07-23] MEDS: ALBUTEROL 2.5 MG/3 ML NEB (ADULT) 20 MG INH (22:38)
[2023-07-23 22:48] LABS: Basophils Absolute Auto 100 /uL (0-100); Basophils Percent Auto 0.6 % (0-2); Eosinophils Absolute Auto 100 /uL (0-450); Eosinophils Percent Auto 0.8 % (2-4); Hemoglobin 9.8 g/dL (12.0-16.0); Lymphocytes Absolute Auto 1700 /uL (1100-4500); Lymphocytes Percent Auto 18.5 % (25-40); Mean Corpuscular HGB Conc 31.7 % (30-36); Mean Corpuscular Hemoglobin 16.9 PG (26-34); Mean Corpuscular Volume 53.3 fL (80-100); Monocytes Absolute Auto 800 /uL (0-900); Monocytes Percent Auto 8.9 % (3-14); Neutrophils Absolute Auto 6500 /uL (1500-7000); Neutrophils Percent Auto 71.2 % (50-75); Red Blood Cell Count 5.81 X10^6/uL (4.0-5.2); Red Cell Distribution Width 18.4 % (11.6-14.8); White Blood Cell Count 9.1 X10^3/uL (4.5-11.0)
[2023-07-23 22:49] LABS: Add Manual Diff / Slide Review SLIDE REVIEW
[2023-07-23 23:04] LABS: Anisocytosis 2+; Hypochromasia 1+; Microcytosis 3+; Platelet Estimate Adequate on smear
[2023-07-23 23:05] LABS: Ovalocytes 1+
[2023-07-23 23:36] LABS: Adenovirus Not Detected (Not Detect)
[2023-07-23 23:37] LABS: B. parapertussis Not Detected (Not Detecte); Bordetella pertussis Not Detected (Not Detecte); Chlamydophila pneumoniae Not Detected (Not Detect); Coronavirus 229E Not Detected (Not Detect); Coronavirus HKU1 Not Detected (Not Detect); Coronavirus NL 63 Not Detected (Not Detect); Coronavirus OC43 Not Detected (Not Detect); Human Metapneumovirus Not Detected (Not Detect); Human Rhinovirus/Enterovirus Not Detected (Not Detect); Influenza A Not Detected (Not Detect); Influenza B Not Detected (Not Detect); Mycoplasma pneumoniae Not Detected (Not Detect); Parainfluenza Virus 1 Not Detected (Not Detect); Parainfluenza Virus 2 Not Detected (Not Detect); Parainfluenza Virus 3 Not Detected (Not Detect); Parainfluenza Virus 4 Not Detected (Not Detect); Respiratory Syncytial Virus Not Detected (Not Detect); SARS- CoV-2 Not Detected (Not Detecte)
[2023-07-24] VITALS (16 sets, daily range): BP systolic 90–130; BP diastolic 39–78; PULSE 84–126; RESP 16–71; TEMP 35.9–37.4; O2SAT 90–97; BMI 22.2
--- NOTE | 2023-07-24 02:51 | PM.HP.1 ---
History of Present Illness History of Present Illness Chief complaint: SOB Narrative: 82-year-old female with history of COPD on home oxygen of 3L, CHF, HTN, HLP was brought to the emergency department by EMS for evaluation what sounds like a fairly sudden onset of shortness of breath. She received 2 DuoNebs prior to arrival.? Patient denies any cough, fever, chest pain, palpitations, nausea, vomiting, abdominal pain, diarrhea or dysuria. Has baseline memory loss and is at her baseline mental status per EMS who received this information from nursing facility.? Patient's HPI and review of systems somewhat limited given her mental status and also her presenting condition. [facility] Medical History C. difficile colitis COPD (chronic obstructive pulmonary disease) Rheumatoid arthritis with positive rheumatoid factor (10/01/16) Surgical History Status post delivery Family History Sister Age: 86 Hypertension Social History household members: none Smoking Status: Former smoker alcohol intake: current Meds Home Medications and Allergies Home Medications Medication Instructions Recorded Confirmed Type fluticasone fur. 100 mcg-umeclid 1 inh inhalation DAILY 06/18/21 07/24/23 History 62.5 mcg-vilant 25 mcg inhalat.powder (Trelegy Ellipta) albuterol sulfate 90 mcg/actuation 2 puff inhalation Q4-6H #8.5 grams 06/11/22 07/24/23 Rx aerosol inhaler fluticasone propionate 50 2 spray intranasal DAILY #16 grams 06/11/22 07/24/23 Rx mcg/actuation nasal spray,suspension (Flonase Allergy Relief) metoprolol succinate 25 mg 25 mg PO BID #180 tabs 06/11/22 07/24/23 Rx tablet,extended release 24 hr tiotropium bromide 18 mcg capsule 1 cap inhalation DAILY #1 inh 06/11/22 07/24/23 Rx with inhalation device (Spiriva with HandiHaler) triamterene 37.5 1 tab PO DAILY #90 tabs 06/11/22 07/24/23 Rx mg-hydrochlorothiazide 25 mg tablet pravastatin 10 mg tablet 10 mg PO BEDTIME #90 tabs 01/09/23 07/24/23 Rx ondansetron 4 mg disintegrating 4 mg PO Q8H #30 tabs 02/06/23 07/24/23 Rx tablet polyethylene glycol 3350 17 See Rx Instructions PO DAILY #238 02/06/23 07/24/23 Rx gram/dose oral powder (Miralax) grams nitrofurantoin macrocrystal 100 mg 100 mg PO BID #20 caps 02/26/23 07/24/23 Rx capsule quetiapine 25 mg tablet See Rx Instructions .Route 03/09/23 07/24/23 Rx .COMPLEX #14 tabs omeprazole 40 mg capsule,delayed 40 mg PO DAILY PRN heartburn #60 04/13/23 07/24/23 Rx release caps leflunomide 20 mg tablet 20 mg PO DAILY 07/24/23 07/24/23 History Allergies Allergy/AdvReac Type Severity Reaction Status Date / Time codeine [CODEINE] Allergy Mild N & V Verified 02/26/23 14:23 Penicillins [PENICILLINS] Allergy Mild RASH Verified 02/26/23 14:23 Sulfa (Sulfonamide Allergy Mild Nausea Verified 02/26/23 14:23 Antibiotics) oxycodone Allergy Unknown Verified 02/26/23 14:23 sulfamethoxazole Allergy Unknown Verified 02/26/23 14:23 [From Bactrim] trimethoprim [From Bactrim] Allergy Unknown Verified 02/26/23 14:23 atorvastatin AdvReac Intermediate Muscle Pain Verified 02/26/23 14:23 hydrocodone AdvReac Intermediate NAUSEA/VOMI Verified 02/26/23 14:23 TING Review of Systems Constitutional Constitutional: Reports as per HPI and Reports system reviewed and no additional complaints, except as documented Eyes Eyes: Reports as per HPI and Reports system reviewed and no additional complaints, except as documented ENT Ears, Nose, Mouth, and Throat: Yes as per HPI, Yes system reviewed and no additional complaints, except as documented, No dysphagia, No neck pain and No odynophagia Cardiovascular Cardiovascular: Reports system reviewed and no additional complaints, except as documented and Reports dyspnea Respiratory Respiratory: Reports system reviewed and no additional complaints, except as documented and Reports dyspnea Gastrointestinal Gastrointestinal: Denies as per HPI, Reports system reviewed and no additional complaints, except as documented, Denies abdominal pain, Denies belching, Denies melena, Denies bloating, Denies hematochezia, Denies change in bowel habits, Denies tenesmus, Denies change in stool character, Denies coffee ground emesis, Denies constipation, Denies cramping, Denies dysphagia, Denies excessive flatus, Denies heartburn, Denies loose stools, Denies nausea, Denies odynophagia, Denies vomiting, Denies hematemesis and Reports other Musculoskeletal Musculoskeletal: Denies as per HPI, Denies system reviewed and no additional complaints, except as documented, Denies abnormal gait, Denies back pain, Denies myalgias, Denies arthralgias, Denies joint swelling, Denies muscle cramps, Denies muscle weakness, Denies neck pain, Denies numbness and Denies radiating pain into limb Neurologic Neurologic: Denies abnormal gait, Denies confusion and Denies numbness Psychiatric Psychiatric: Denies as per HPI, Reports system reviewed and no additional complaints, except as documented, Denies abnormal sleep pattern, Denies anxiety, Denies change in appetite, Denies confusion, Denies depression and Denies auditory hallucinations Exam Vital Signs (past 8 hours): - 07/23/23 22:03 07/23/23 22:42 07/23/23 22:01 Temperature 97.6 F Pulse Rate 118 H 118 H Respiratory Rate 38 H Blood Pressure 115/66 Pulse Oximetry 94 94 94 Oxygen Delivery Method Aerosol Mask Nasal Cannula Oxygen Flow Rate 3.5 07/23/23 22:02 07/23/23 22:02 07/23/23 22:30 Temperature Pulse Rate 118 H Respiratory Rate Blood Pressure 115/66 108/58 L Pulse Oximetry 94 Oxygen Delivery Method Oxygen Flow Rate 07/23/23 22:30 07/23/23 23:00 07/23/23 23:00 Temperature Pulse Rate 118 H 121 H Respiratory Rate 33 H 39 H Blood Pressure 114/69 Pulse Oximetry 92 94 Oxygen Delivery Method Oxygen Flow Rate 07/23/23 23:30 07/23/23 23:30 07/24/23 00:00 Temperature Pulse Rate 123 H 126 H Respiratory Rate 44 H 64 H Blood Pressure 120/61 Pulse Oximetry 92 93 Oxygen Delivery Method Oxygen Flow Rate 07/24/23 00:01 07/24/23 00:01 07/24/23 00:22 Temperature Pulse Rate 126 H Respiratory Rate 71 H Blood Pressure 90/39 L 95/62 Pulse Oximetry 93 Oxygen Delivery Method Oxygen Flow Rate 07/24/23 00:22 07/24/23 00:30 07/24/23 00:30 Temperature Pulse Rate 126 H 126 H Respiratory Rate 32 H 42 H Blood Pressure 99/56 L Pulse Oximetry 91 90 L Oxygen Delivery Method Oxygen Flow Rate 07/24/23 00:54 07/24/23 00:56 07/24/23 00:44 Temperature 99.4 F Pulse Rate 117 H Respiratory Rate 20 Blood Pressure 122/71 Pulse Oximetry 91 91 Oxygen Delivery Method Nasal Cannula Nasal Cannula Oxygen Flow Rate 4 4 Oxygen Delivery Method Nasal Cannula Oxygen Flow Rate 4 Const General: cooperative, comfortable and well developed Orientation: alert and oriented x3 HENMT Head: normal to inspection and atraumatic Face and sinus: normal facial exam Mouth: oral mucosae normal and moist mucous membranes Throat: posterior oropharynx normal Eyes General: appearance normal, both eyes and all related structures Pupils: PERRL EOM: EOM intact bilaterally Neck Neck: normal visual inspection and full ROM Chest Chest: normal inspection of the chest Resp Effort & Inspection: normal respiratory effort and able to speak in complete sentences Auscultation: clear to auscultation bilaterally Cardio Palpation: normal PMI Rate: regular rate Rhythm: regular rhythm Heart Sounds: S1 normal and S2 normal GI Inspection: normal to inspection Palpation: soft and no hepatosplenomegaly Auscultation: normal bowel sounds Skin General: no rashes or lesions noted Neuro General: patient alert, patient awake, patient oriented x3 and no focal motor deficits Cognition: normal cognition Motor: muscle tone normal throughout Sensory Exam: no sensory deficits noted Extrem General: full ROM and no calf tenderness Psych Appearance: grossly normal Mental Status: mental status grossly normal Speech and Movement: speech and movement normal Objective Labs 07/23/23 21:58 07/23/23 21:58 Labs: Laboratory Results - last 24 hr 07/23/23 07/23/23 07/23/23 21:58 21:58 22:38 WBC 9.1 RBC 5.81 H Hgb 9.8 L Hct 31.0 L MCV 53.3 L MCH 16.9 L MCHC 31.7 RDW 18.4 H Plt Count Not Reportable Neut % (Auto) 71.2 Lymph % (Auto) 18.5 L [place] % (Auto) 8.9 Eos % (Auto) 0.8 L Baso % (Auto) 0.6 Neut # (Auto) 6500 Lymph # (Auto) 1700 [place] # (Auto) 800 Eos # (Auto) 100 Baso # (Auto) 100 Platelet Estimate Adequate on smear RBC Morphology See below Hypochromasia 1+ H Anisocytosis 2+ H Microcytosis 3+ H Ovalocytes 1+ H Sodium 141 Potassium 4.1 Chloride 102 Carbon Dioxide 28 BUN 44 H Creatinine 1.51 H Estimated GFR 34 L BUN/Creatinine Ratio 29.1 H Glucose 178 H Calcium 9.3 Total Bilirubin 0.8 AST 33 ALT 20 Alkaline Phosphatase 135 H Total Creatine Kinase 29 L Troponin I 0.118 H NT-Pro-B Natriuret Pep 2280 H Total Protein 8.6 H Albumin 4.1 Globulin 4.5 H Albumin/Globulin Ratio 0.9 L Lipase 20 L Procalcitonin 0.28 Chlamy pneumoniae PCR Not detected Adenovirus (PCR) Not detected B. pertussis DNA (PCR) Not detected B.parapertussis DNA PCR Not detected Coronavirus OC43 (PCR) Not detected Coronavirus HKU1 (PCR) Not detected Coronavirus 229E (PCR) Not detected SARS-CoV-2 (PCR) Not detected Coronavirus NL63 (PCR) Not detected Human Metapneumovir PCR Not detected Influenza Type A (PCR) Not detected Influenza Type B (PCR) Not detected M. pneumoniae (PCR) Not detected Parainfluenza 1 (PCR) Not detected Parainfluenza 2 (PCR) Not detected Parainfluenza 3 (PCR) Not detected Parainfluenza 4 (PCR) Not detected RSV (PCR) Not detected Entero/Rhino (PCR) Not detected Assessment & Plan Assessment and plan (1) COPD exacerbation: Problem details: oxygen dependent. Increased oxygen demand. Status: Acute Plan: -Oxygen titration goal of 88-92%, avoid excess oxygen to prevent carbondioxide retention, Monitor mental status. Flutter valve. -Albuterol 2.5 mg nebulizer Q Hour for the next 4 to 6 hours -DuoNeb every 4 hours scheduled and every 2 hours as needed -Continue patient on 60 mg Solu-Medrol every 8 hours for severe exacerbation, reassess and taper or prednisone 60 mg daily. Prednisone 40 mg po daily x 5 days starting on day 2 of admission; -Azithromycin -Monitor patient on telemetry. -The patient does not improve we can consider BiPAP and further evaluation by ABG. (2) Hyperlipidemia, mixed: Status: Acute Plan: -restart statins (3) Primary hypertension: Status: Acute Plan: -restart metoprolol -Monitor closely (4) Iron deficiency anemia: Qualifiers: Iron deficiency anemia type: other iron deficiency Qualified Code(s): D50.8 - Other iron deficiency anemias Status: Acute Plan: -restart iron supplement (5) Chronic diastolic (congestive) heart failure: Status: Acute Plan -restart diuretics, metoprolol and statins Time Spent With Patient Time with patient: 50 to 69 minutes with 50% spent counseling/coordinating care Quality VTE Deep Vein Thrombosis/Pulmonary Embolism Present on Admission: No MIPS - Admit I confirm the patient?s Advance Care Plan is present, Code status is documented, Surrogate decision maker is in patient?s record [If Yes, STOP here]: Yes MIPS - Meds 'Current medications' to include all prescriptions, [id number] products, herbals, cannabis/cannabidiol products, and vitamin/mineral/dietary (nutritional) supplements. I have utilized all available resources to obtain, update, or review the patient?s current medications. [If Yes, STOP here]: Yes
[2023-07-24 05:40] LABS: Alanine Aminotransferase 19 IU/L (<35); Albumin 3.6 g/dL (3.5-5.0); Albumin Globulin Ratio 0.9 (1.0-2.8); Alkaline Phosphatase 111 U/L (38-126); Aspartate Aminotransferase 34 IU/L (14-36); BUN Creatinine Ratio 28.3 (6-22); Bilirubin Total 0.6 mg/dL (0.2-1.3); Blood Urea Nitrogen 47 mg/dL (7-17); Calcium 8.6 mg/dL (8.4-10.2); Carbon Dioxide 28 mmol/L (22-32); Chloride 103 mmol/L (98-107); Estimated Glomerular Filt Rate 30 mL/min (>60); Glucose 273 mg/dL (80-110); HEMOLYSIS < 15 (0-50); Potassium 3.2 mmol/L (3.4-5.1); Sodium 142 mmol/L (137-145); Total Protein 7.6 g/dL (6.3-8.2)
[2023-07-24] MEDS: methylPREDNISolone 125 MG/2 ML VIAL 60 MG IV ×2 (05:44→18:43)
[2023-07-24] MEDS: POTASSIUM CHLORIDE 20 MEQ TAB 40 MEQ PO (06:55)
--- NOTE | 2023-07-24 08:00 | P.HP_ITS ---
History of Present Illness History of Present Illness Chief complaint: SOB Narrative: 82-year-old female with history of COPD on home oxygen of 3L, CHF, HTN, HLP was brought to the emergency department by EMS for evaluation what sounds like a fairly sudden onset of shortness of breath. She received 2 DuoNebs prior to arrival.? Patient denies any cough, fever, chest pain, palpitations, nausea, vomiting, abdominal pain, diarrhea or dysuria. Has baseline memory loss and is at her baseline mental status per EMS who received this information from nursing facility.? Patient's HPI and review of systems somewhat limited given her mental status and also her presenting condition. [facility] Medical History C. difficile colitis COPD (chronic obstructive pulmonary disease) Rheumatoid arthritis with positive rheumatoid factor (10/01/16) Surgical History Status post delivery Family History Sister Age: 86 Hypertension Social History household members: none Smoking Status: Former smoker alcohol intake: current Meds Home Medications and Allergies Home Medications Medication Instructions Recorded Confirmed Type fluticasone fur. 100 mcg-umeclid 1 inh inhalation DAILY 06/18/21 07/24/23 History 62.5 mcg-vilant 25 mcg inhalat.powder (Trelegy Ellipta) albuterol sulfate 90 mcg/actuation 2 puff inhalation Q4-6H #8.5 grams 06/11/22 07/24/23 Rx aerosol inhaler fluticasone propionate 50 2 spray intranasal DAILY #16 grams 06/11/22 07/24/23 Rx mcg/actuation nasal spray,suspension (Flonase Allergy Relief) metoprolol succinate 25 mg 25 mg PO BID #180 tabs 06/11/22 07/24/23 Rx tablet,extended release 24 hr tiotropium bromide 18 mcg capsule 1 cap inhalation DAILY #1 inh 06/11/22 07/24/23 Rx with inhalation device (Spiriva with HandiHaler) triamterene 37.5 1 tab PO DAILY #90 tabs 06/11/22 07/24/23 Rx mg-hydrochlorothiazide 25 mg tablet pravastatin 10 mg tablet 10 mg PO BEDTIME #90 tabs 01/09/23 07/24/23 Rx ondansetron 4 mg disintegrating 4 mg PO Q8H #30 tabs 02/06/23 07/24/23 Rx tablet polyethylene glycol 3350 17 See Rx Instructions PO DAILY #238 02/06/23 07/24/23 Rx gram/dose oral powder (Miralax) grams nitrofurantoin macrocrystal 100 mg 100 mg PO BID #20 caps 02/26/23 07/24/23 Rx capsule quetiapine 25 mg tablet See Rx Instructions .Route 03/09/23 07/24/23 Rx .COMPLEX #14 tabs omeprazole 40 mg capsule,delayed 40 mg PO DAILY PRN heartburn #60 04/13/23 07/24/23 Rx release caps leflunomide 20 mg tablet 20 mg PO DAILY 07/24/23 07/24/23 History Allergies Allergy/AdvReac Type Severity Reaction Status Date / Time codeine [CODEINE] Allergy Mild N & V Verified 02/26/23 14:23 Penicillins [PENICILLINS] Allergy Mild RASH Verified 07/24/23 12:07 Sulfa (Sulfonamide Allergy Mild Nausea Verified 02/26/23 14:23 Antibiotics) oxycodone Allergy Unknown Verified 02/26/23 14:23 sulfamethoxazole Allergy Unknown Verified 02/26/23 14:23 [From Bactrim] trimethoprim [From Bactrim] Allergy Unknown Verified 02/26/23 14:23 atorvastatin AdvReac Intermediate Muscle Pain Verified 02/26/23 14:23 hydrocodone AdvReac Intermediate NAUSEA/VOMI Verified 02/26/23 14:23 TING Review of Systems Constitutional Constitutional: Reports as per HPI and Reports system reviewed and no additional complaints, except as documented Eyes Eyes: Reports as per HPI and Reports system reviewed and no additional complaints, except as documented ENT Ears, Nose, Mouth, and Throat: Yes as per HPI, Yes system reviewed and no additional complaints, except as documented, No dysphagia, No neck pain and No odynophagia Cardiovascular Cardiovascular: Reports system reviewed and no additional complaints, except as documented and Reports dyspnea Respiratory Respiratory: Reports system reviewed and no additional complaints, except as documented and Reports dyspnea Gastrointestinal Gastrointestinal: Denies as per HPI, Reports system reviewed and no additional complaints, except as documented, Denies abdominal pain, Denies belching, Denies melena, Denies bloating, Denies hematochezia, Denies change in bowel habits, Denies tenesmus, Denies change in stool character, Denies coffee ground emesis, Denies constipation, Denies cramping, Denies dysphagia, Denies excessive flatus, Denies heartburn, Denies loose stools, Denies nausea, Denies odynophagia, Denies vomiting, Denies hematemesis and Reports other Musculoskeletal Musculoskeletal: Denies as per HPI, Denies system reviewed and no additional complaints, except as documented, Denies abnormal gait, Denies back pain, Denies myalgias, Denies arthralgias, Denies joint swelling, Denies muscle cramps, Denies muscle weakness, Denies neck pain, Denies numbness and Denies radiating pain into limb Neurologic Neurologic: Denies abnormal gait, Denies confusion and Denies numbness Psychiatric Psychiatric: Denies as per HPI, Reports system reviewed and no additional complaints, except as documented, Denies abnormal sleep pattern, Denies anxiety, Denies change in appetite, Denies confusion, Denies depression and Denies auditory hallucinations Exam Vital Signs (past 8 hours): - 07/24/23 09:10 07/24/23 13:30 07/24/23 11:48 Temperature 96.6 F L Pulse Rate 94 H 92 H 93 H Respiratory Rate 20 16 Blood Pressure 114/60 111/61 Pulse Oximetry 95 93 Oxygen Delivery Method Nasal Cannula Oxygen Flow Rate 3 0 Oxygen Delivery Method Nasal Cannula Oxygen Flow Rate 0 Const General: cooperative, comfortable and well developed Orientation: alert and oriented x3 HENMT Head: normal to inspection and atraumatic Face and sinus: normal facial exam Mouth: oral mucosae normal and moist mucous membranes Throat: posterior oropharynx normal Eyes General: appearance normal, both eyes and all related structures Pupils: PERRL EOM: EOM intact bilaterally Neck Neck: normal visual inspection and full ROM Chest Chest: normal inspection of the chest Resp Effort & Inspection: normal respiratory effort and able to speak in complete sentences Auscultation: clear to auscultation bilaterally Cardio Palpation: normal PMI Rate: regular rate Rhythm: regular rhythm Heart Sounds: S1 normal and S2 normal GI Inspection: normal to inspection Palpation: soft and no hepatosplenomegaly Auscultation: normal bowel sounds Skin General: no rashes or lesions noted Neuro General: patient alert, patient awake, patient oriented x3 and no focal motor deficits Cognition: normal cognition Motor: muscle tone normal throughout Sensory Exam: no sensory deficits noted Extrem General: full ROM and no calf tenderness Psych Appearance: grossly normal Mental Status: mental status grossly normal Speech and Movement: speech and movement normal Objective Labs 07/24/23 08:09 07/24/23 08:09 Labs: Laboratory Results - last 24 hr 07/23/23 07/23/23 07/23/23 21:58 21:58 22:38 WBC 9.1 RBC 5.81 H Hgb 9.8 L Hct 31.0 L MCV 53.3 L MCH 16.9 L MCHC 31.7 RDW 18.4 H Plt Count Not Reportable Neut % (Auto) 71.2 Lymph % (Auto) 18.5 L [place] % (Auto) 8.9 Eos % (Auto) 0.8 L Baso % (Auto) 0.6 Neut # (Auto) 6500 Lymph # (Auto) 1700 [place] # (Auto) 800 Eos # (Auto) 100 Baso # (Auto) 100 Nucleated RBCs Hypersegmented Neuts Hypogranular Neuts Reactive Lymphocytes Smudge Cells Other Cell Type Toxic Granulation Toxic Vacuolation Dohle Bodies Hernesto Rods WBC Morphology Comment Platelet Estimate Adequate on smear Clumped Platelets Plt Morphology Comment RBC Morphology See below Dimorphic RBCs Polychromasia Hypochromasia 1+ H Poikilocytosis Basophilic Stippling Anisocytosis 2+ H Microcytosis 3+ H Macrocytosis Spherocytes Pappenheimer Bodies Sickle Cells Target Cells Tear Drop Cells Ovalocytes 1+ H Stomatocytes Helmet Cells [place] Bodies [place] Rings Linh Cells Acanthocytes (Spur) Rouleaux Schistocytes APTT Sodium 141 Potassium 4.1 Chloride 102 Carbon Dioxide 28 BUN 44 H Creatinine 1.51 H Estimated GFR 34 L BUN/Creatinine Ratio 29.1 H Glucose 178 H Calcium 9.3 Magnesium Iron TIBC % Saturation Transferrin Ferritin Total Bilirubin 0.8 AST 33 ALT 20 Alkaline Phosphatase 135 H Total Creatine Kinase 29 L Troponin I 0.118 H NT-Pro-B Natriuret Pep 2280 H Total Protein 8.6 H Albumin 4.1 Globulin 4.5 H Albumin/Globulin Ratio 0.9 L Lipase 20 L Procalcitonin 0.28 Chlamy pneumoniae PCR Not detected Adenovirus (PCR) Not detected B. pertussis DNA (PCR) Not detected B.parapertussis DNA PCR Not detected Coronavirus OC43 (PCR) Not detected Coronavirus HKU1 (PCR) Not detected Coronavirus 229E (PCR) Not detected SARS-CoV-2 (PCR) Not detected Coronavirus NL63 (PCR) Not detected Human Metapneumovir PCR Not detected Influenza Type A (PCR) Not detected Influenza Type B (PCR) Not detected M. pneumoniae (PCR) Not detected Parainfluenza 1 (PCR) Not detected Parainfluenza 2 (PCR) Not detected Parainfluenza 3 (PCR) Not detected Parainfluenza 4 (PCR) Not detected RSV (PCR) Not detected Entero/Rhino (PCR) Not detected 07/24/23 07/24/23 07/24/23 05:15 08:09 08:09 WBC 8.2 RBC 4.90 Hgb 8.2 L Hct 26.3 L MCV 53.7 L MCH 16.8 L MCHC 31.2 RDW 18.2 H Plt Count 124 L Neut % (Auto) 86.7 H Lymph % (Auto) 9.3 L [place] % (Auto) 3.6 Eos % (Auto) 0.0 L Baso % (Auto) 0.4 Neut # (Auto) 7100 H Lymph # (Auto) 800 L [place] # (Auto) 300 Eos # (Auto) 0 Baso # (Auto) 0 Nucleated RBCs Cancelled Hypersegmented Neuts Cancelled Hypogranular Neuts Cancelled Reactive Lymphocytes Cancelled Smudge Cells Cancelled Other Cell Type Cancelled Toxic Granulation Cancelled Toxic Vacuolation Cancelled Dohle Bodies Cancelled Hernesto Rods Cancelled WBC Morphology Comment Cancelled Platelet Estimate Cancelled Clumped Platelets Cancelled Plt Morphology Comment Cancelled RBC Morphology Cancelled Dimorphic RBCs Cancelled Polychromasia Cancelled Hypochromasia Cancelled Poikilocytosis Cancelled Basophilic Stippling Cancelled Anisocytosis Cancelled Microcytosis Cancelled Macrocytosis Cancelled Spherocytes Cancelled Pappenheimer Bodies Cancelled Sickle Cells Cancelled Target Cells Cancelled Tear Drop Cells Cancelled Ovalocytes Cancelled Stomatocytes Cancelled Helmet Cells Cancelled [place] Bodies Cancelled [place] Rings Cancelled [place] Cells Cancelled Acanthocytes (Spur) Cancelled Rouleaux Cancelled Schistocytes Cancelled APTT Sodium 142 Potassium 3.2 L Chloride 103 Carbon Dioxide 28 BUN 47 H Creatinine 1.66 H Estimated GFR 30 L BUN/Creatinine Ratio 28.3 H Glucose 273 H Calcium 8.6 Magnesium 1.7 Iron TIBC % Saturation Transferrin Ferritin Total Bilirubin 0.6 AST 34 ALT 19 Alkaline Phosphatase 111 Total Creatine Kinase Troponin I NT-Pro-B Natriuret Pep Total Protein 7.6 Albumin 3.6 Globulin 4.0 Albumin/Globulin Ratio 0.9 L Lipase Procalcitonin Chlamy pneumoniae PCR Adenovirus (PCR) B. pertussis DNA (PCR) B.parapertussis DNA PCR Coronavirus OC43 (PCR) Coronavirus HKU1 (PCR) Coronavirus 229E (PCR) SARS-CoV-2 (PCR) Coronavirus NL63 (PCR) Human Metapneumovir PCR Influenza Type A (PCR) Influenza Type B (PCR) M. pneumoniae (PCR) Parainfluenza 1 (PCR) Parainfluenza 2 (PCR) Parainfluenza 3 (PCR) Parainfluenza 4 (PCR) RSV (PCR) Entero/Rhino (PCR) 07/24/23 07/24/23 07/24/23 08:09 08:09 08:09 WBC RBC Hgb Hct MCV MCH MCHC RDW Plt Count Neut % (Auto) Lymph % (Auto) [place] % (Auto) Eos % (Auto) Baso % (Auto) Neut # (Auto) Lymph # (Auto) [place] # (Auto) Eos # (Auto) Baso # (Auto) Nucleated RBCs Hypersegmented Neuts Hypogranular Neuts Reactive Lymphocytes Smudge Cells Other Cell Type Toxic Granulation Toxic Vacuolation Dohle Bodies Hernesto Rods WBC Morphology Comment Platelet Estimate Clumped Platelets Plt Morphology Comment RBC Morphology Dimorphic RBCs Polychromasia Hypochromasia Poikilocytosis Basophilic Stippling Anisocytosis Microcytosis Macrocytosis Spherocytes Pappenheimer Bodies Sickle Cells Target Cells Tear Drop Cells Ovalocytes Stomatocytes Helmet Cells [place] Bodies [place] Rings Linh Cells Acanthocytes (Spur) Rouleaux Schistocytes APTT Sodium 141 Potassium 3.6 Chloride 103 Carbon Dioxide 29 BUN 50 H Creatinine 1.52 H Estimated GFR 34 L BUN/Creatinine Ratio 32.9 H Glucose 284 H Calcium 8.7 Magnesium Iron 23 L TIBC 215 L % Saturation 11 L Transferrin 146 L Ferritin Total Bilirubin AST ALT Alkaline Phosphatase Total Creatine Kinase Troponin I 0.302 H* NT-Pro-B Natriuret Pep Total Protein Albumin Globulin Albumin/Globulin Ratio Lipase Procalcitonin Chlamy pneumoniae PCR Adenovirus (PCR) B. pertussis DNA (PCR) B.parapertussis DNA PCR Coronavirus OC43 (PCR) Coronavirus HKU1 (PCR) Coronavirus 229E (PCR) SARS-CoV-2 (PCR) Coronavirus NL63 (PCR) Human Metapneumovir PCR Influenza Type A (PCR) Influenza Type B (PCR) M. pneumoniae (PCR) Parainfluenza 1 (PCR) Parainfluenza 2 (PCR) Parainfluenza 3 (PCR) Parainfluenza 4 (PCR) RSV (PCR) Entero/Rhino (PCR) 07/24/23 07/24/23 07/24/23 08:09 11:08 14:27 WBC RBC Hgb Hct MCV MCH MCHC RDW Plt Count Neut % (Auto) Lymph % (Auto) [place] % (Auto) Eos % (Auto) Baso % (Auto) Neut # (Auto) Lymph # (Auto) [place] # (Auto) Eos # (Auto) Baso # (Auto) Nucleated RBCs Hypersegmented Neuts Hypogranular Neuts Reactive Lymphocytes Smudge Cells Other Cell Type Toxic Granulation Toxic Vacuolation Dohle Bodies Hernesto Rods WBC Morphology Comment Platelet Estimate Clumped Platelets Plt Morphology Comment RBC Morphology Dimorphic RBCs Polychromasia Hypochromasia Poikilocytosis Basophilic Stippling Anisocytosis Microcytosis Macrocytosis Spherocytes Pappenheimer Bodies Sickle Cells Target Cells Tear Drop Cells Ovalocytes Stomatocytes Helmet Cells [place] Bodies [place] Rings Enterprise Cells Acanthocytes (Spur) Rouleaux Schistocytes APTT 67 H Sodium Potassium Chloride Carbon Dioxide BUN Creatinine Estimated GFR BUN/Creatinine Ratio Glucose Calcium Magnesium Iron TIBC % Saturation Transferrin Ferritin 1520 H Total Bilirubin AST ALT Alkaline Phosphatase Total Creatine Kinase Troponin I 0.198 H* NT-Pro-B Natriuret Pep Total Protein Albumin Globulin Albumin/Globulin Ratio Lipase Procalcitonin Chlamy pneumoniae PCR Adenovirus (PCR) B. pertussis DNA (PCR) B.parapertussis DNA PCR Coronavirus OC43 (PCR) Coronavirus HKU1 (PCR) Coronavirus 229E (PCR) SARS-CoV-2 (PCR) Coronavirus NL63 (PCR) Human Metapneumovir PCR Influenza Type A (PCR) Influenza Type B (PCR) M. pneumoniae (PCR) Parainfluenza 1 (PCR) Parainfluenza 2 (PCR) Parainfluenza 3 (PCR) Parainfluenza 4 (PCR) RSV (PCR) Entero/Rhino (PCR) 07/24/23 15:05 WBC RBC Hgb Hct MCV MCH MCHC RDW Plt Count Neut % (Auto) Lymph % (Auto) [place] % (Auto) Eos % (Auto) Baso % (Auto) Neut # (Auto) Lymph # (Auto) [place] # (Auto) Eos # (Auto) Baso # (Auto) Nucleated RBCs Hypersegmented Neuts Hypogranular Neuts Reactive Lymphocytes Smudge Cells Other Cell Type Toxic Granulation Toxic Vacuolation Dohle Bodies Hernesto Rods WBC Morphology Comment Platelet Estimate Clumped Platelets Plt Morphology Comment RBC Morphology Dimorphic RBCs Polychromasia Hypochromasia Poikilocytosis Basophilic Stippling Anisocytosis Microcytosis Macrocytosis Spherocytes Pappenheimer Bodies Sickle Cells Target Cells Tear Drop Cells Ovalocytes Stomatocytes Helmet Cells [place] Bodies [place] Rings Linh Cells Acanthocytes (Spur) Rouleaux Schistocytes APTT 47 H D Sodium Potassium Chloride Carbon Dioxide BUN Creatinine Estimated GFR BUN/Creatinine Ratio Glucose Calcium Magnesium Iron TIBC % Saturation Transferrin Ferritin Total Bilirubin AST ALT Alkaline Phosphatase Total Creatine Kinase Troponin I NT-Pro-B Natriuret Pep Total Protein Albumin Globulin Albumin/Globulin Ratio Lipase Procalcitonin Chlamy pneumoniae PCR Adenovirus (PCR) B. pertussis DNA (PCR) B.parapertussis DNA PCR Coronavirus OC43 (PCR) Coronavirus HKU1 (PCR) Coronavirus 229E (PCR) SARS-CoV-2 (PCR) Coronavirus NL63 (PCR) Human Metapneumovir PCR Influenza Type A (PCR) Influenza Type B (PCR) M. pneumoniae (PCR) Parainfluenza 1 (PCR) Parainfluenza 2 (PCR) Parainfluenza 3 (PCR) Parainfluenza 4 (PCR) RSV (PCR) Entero/Rhino (PCR) Assessment & Plan Assessment and plan (1) COPD exacerbation: Problem details: oxygen dependent. Increased oxygen demand. Status: Acute Plan: -Oxygen titration goal of 88-92%, avoid excess oxygen to prevent carbondioxide retention, Monitor mental status. Flutter valve. -Albuterol 2.5 mg nebulizer Q Hour for the next 4 to 6 hours -DuoNeb every 4 hours scheduled and every 2 hours as needed -Continue patient on 60 mg Solu-Medrol every 8 hours for severe exacerbation, reassess and taper or prednisone 60 mg daily. Prednisone 40 mg po daily x 5 days starting on day 2 of admission; -Azithromycin -Monitor patient on telemetry. -The patient does not improve we can consider BiPAP and further evaluation by ABG. (2) Hyperlipidemia, mixed: Status: Acute Plan: -restart statins (3) Primary hypertension: Status: Acute Plan: -restart metoprolol -Monitor closely (4) Iron deficiency anemia: Qualifiers: Iron deficiency anemia type: other iron deficiency Qualified Code(s): D50.8 - Other iron deficiency anemias Status: Acute Plan: -restart iron supplement (5) Chronic diastolic (congestive) heart failure: Status: Acute Plan -restart diuretics, metoprolol and statins Assessment & Plan narrative: #NSTEMI -trop elevated to 0.308, patient denies CP -likely demand ischemia, however given large bump in trop will treat with heparin drip x48 hours -recheck echo -trend trops Time Spent With Patient Time with patient: 50 to 69 minutes with 50% spent counseling/coordinating care Quality VTE Deep Vein Thrombosis/Pulmonary Embolism Present on Admission: No
[2023-07-24 08:26] LABS: Add Manual Diff / Slide Review NO; Basophils Absolute Auto 0 /uL (0-100); Basophils Percent Auto 0.4 % (0-2); Eosinophils Absolute Auto 0 /uL (0-450); Hematocrit 26.3 % (36-46); Hemoglobin 8.2 g/dL (12.0-16.0); Lymphocytes Absolute Auto 800 /uL (1100-4500); Lymphocytes Percent Auto 9.3 % (25-40); Mean Corpuscular HGB Conc 31.2 % (30-36); Mean Corpuscular Hemoglobin 16.8 PG (26-34); Mean Corpuscular Volume 53.7 fL (80-100); Monocytes Absolute Auto 300 /uL (0-900); Monocytes Percent Auto 3.6 % (3-14); Neutrophils Absolute Auto 7100 /uL (1500-7000); Neutrophils Percent Auto 86.7 % (50-75); Platelet Count 124 X10^3/uL (150-400); Red Cell Distribution Width 18.2 % (11.6-14.8); White Blood Cell Count 8.2 X10^3/uL (4.5-11.0)
[2023-07-24 08:34] LABS: HEMOLYSIS < 15 (0-50); Iron 23 ug/dL (37-170)
[2023-07-24 08:35] LABS: BUN Creatinine Ratio 32.9 (6-22); Blood Urea Nitrogen 50 mg/dL (7-17); Calcium 8.7 mg/dL (8.4-10.2); Carbon Dioxide 29 mmol/L (22-32); Chloride 103 mmol/L (98-107); Estimated Glomerular Filt Rate 34 mL/min (>60); Glucose 284 mg/dL (80-110); HEMOLYSIS < 15 (0-50); Magnesium 1.7 mg/dL (1.6-2.3); Potassium 3.6 mmol/L (3.4-5.1); Sodium 141 mmol/L (137-145)
[2023-07-24 08:45] LABS: Percent Iron Saturation 11 % (15-50); Total Iron Binding Capacity 215 ug/dL (265-497); Transferrin 146 mg/dL (206-381)
[2023-07-24 09:10] LABS: Troponin I 0.302 ng/mL (0.01-0.034)
[2023-07-24] MEDS: ALBUTEROL 2.5 MG/3 ML NEB (ADULT) INH (09:10)
[2023-07-24] MEDS: AZITHROMYCIN 250 MG TABLET 500 MG PO (09:15)
[2023-07-24] MEDS: cefTRIAXone 1,000 MG in SODIUM CHLORIDE 0.9% 100 ML 200 MG IV (09:15)
--- NOTE | 2023-07-24 09:15 | DI.ECHO.S_ITS ---
Version: 1 Study ID: [id number] [address] [place] [address] Name: KEANU FAJARDO Study Date: 07/24/2023, 4: 18 PM : 1940 BP: 123 / 68 mmHg Gender: Female Height: 59 in Age: 82 Years Weight: 110.002 lb BSA: 1.43 mA? Ordering: TONIE WHITE Referring: TONIE WHITE Clinician: [place] Reason For Study: NSTEMI History: Summary Statements 1) Normal left ventricular size with moderately reduced systolic function (EF 35-40%). 2) The mid to distal septum extending to the entire apical cap and distal inferior wall are severely hypokinetic to akinetic. 3) Normal right ventricular size and function. 4) There is mild to moderate aortic stenosis (valve area 1.0cm2, mean gradient 7mmHg, severity ratio 0.45). 5) No prior Echo available for comparison. Procedure: A two-dimensional transthoracic echocardiogram with color flow and Doppler was performed. The study quality was technically difficult. Comparison is made with the echocardiogram of 07/11/2021. A contrast injection of Definity was performed to improve assessment of LV function. Left Ventricle: The left ventricle is normal in size. The ejection fraction is estimated to be 35-40%. The mid to distal septum extending to the entire apical cap and distal inferior wall are severely hypokinetic to akinetic. Diastolic function could not be accurately assessed due to unobtainable data. Right Ventricle: The right ventricle is normal in size and function. Atria: The left atrial size is normal. Right atrial size is normal. There is no Doppler evidence for an interatrial shunt. Mitral Valve: The mitral valve leaflets are slightly calcified. There is no mitral valve stenosis. There is trace mitral regurgitation. Aortic Valve: The aortic valve is not well visualized. There is mild to moderate aortic stenosis. There is mild aortic regurgitation. Tricuspid Valve: The tricuspid valve is normal. There is no tricuspid stenosis. There is mild tricuspid regurgitation. The right ventricular systolic pressure is estimated to be at least 28 mmHg based on an estimated right atrial pressure of 3 mm Hg. Pulmonic Valve: The pulmonic valve leaflets are thin and pliable; valve motion is normal. There is no pulmonic valvular stenosis. There is no pulmonic valvular regurgitation. Great Vessels: The aortic root is normal size. The ascending aorta is normal in size. The pulmonary artery is normal size. The IVC is of normal diameter and collapses greater than 50% with a sniff. This suggests a low right atrial pressure of 3 mm Hg. Pericardium/ Pleura: There is no pericardial effusion. There is no pleural effusion. 2D and M-Mode Measurements and Calculations LVOT diam: 1.70 cm Ao root diam: 2.8 cm asc Aorta Diam: 2.7 cm RVD1 (basal): 3.5 cm LA A4 area: 11.1 kiln fireman? RA area: 10.5 kiln fireman? LA A2 area: 12.5 kiln fireman? RA long axis: 4.2 cm LA length (vol): 4.4 cm RA vol: 22.6 ml LA vol: 26.8 ml RA : 15.8 ml/mA? LA vol index: 18.8 ml/mA? Doppler Measurements and Calculations Ao V2 max: 169.7 cm/sec LVOT Max Michael: 70.3 cm/sec Ao V2 mean: 119.3 cm/sec LV V1 max P.98 mmHg Ao V2 VTI: 32.0 cm LV V1 VTI: 14.3 cm Ao max P.0 mmHg SV(LVOT): 32.5 ml Ao mean P.0 mmHg JUANA(I,D): 1.02 kiln fireman? JUANA(V,D): 0.94 kiln fireman? JUANA indexed to BSA (cm^2/m^2): 0.71 sev ratio: 0.45 TR max michael: 248.7 cm/sec PA mean P.00 mmHg TR max P.7 mmHg PA V2 max: 74.4 cm/sec Electronically signed by: Deidra Arreaga 07/24/2023, 9: 25 PM
[2023-07-24] MEDS: SODIUM CHLORIDE 0.9% 1,000 ML 100 ML IV (09:16)
[2023-07-24] MEDS: HEPARIN 5,000 UNIT/ML VIAL 4000 UNIT IV (09:46)
[2023-07-24 09:53] LABS: Ferritin 1520 ng/mL (11-264)
--- NOTE | 2023-07-24 10:12 | PC.NURSE ---
Addendum entered by Patrizia Berg R.N. 07/24/23 18:55: PTT at 1500 therapeutic at 47. Next draw at 2100. Original Note: Pt is A&OX4 this a.m. on 3.5L NC and 02 saturation 95-100%. She is afebrile and normotensive this a.m.and denies CP, SOB, palpitations or N/V/. She tolerates breakfast well. MD notified of critical troponin this a.m. at 0910 of troponin 0.302 increase. She is asymptomatic and NSR on telemetry. Heparin ordered. Pt with only one PIV, receiving antibiotics, RN attempted x2 to establish IV unsuccessfully, notified RN to attempt. Heparin bolus administered, and IV heparin drip initiated after completed IV ceftriaxone.
[2023-07-24 11:39] LABS: PTT Partial Thromboplastin Tim 67 SECONDS (26-36)
[2023-07-24] MEDS: MAGNESIUM SULFATE 2 GM/50 ML PIGGYBACK IV (11:39)
[2023-07-24] MEDS: HEPARIN DRIP 25,000 UNIT/500 ML IV.SOLN 11.975 UNIT IV (11:47)
[2023-07-24] MEDS: METOPROLOL ER 25 MG TABLET PO ×2 (13:30→21:14)
[2023-07-24] MEDS: INSULIN LISPRO 100 UNIT/ML 3ML VIAL SUBCUT ×2 (13:30→17:23)
[2023-07-24] MEDS: ASPIRIN EC 81 MG TABLET PO (13:34)
--- NOTE | 2023-07-24 14:14 | CM.DANOTE ---
DCP Assessment Note: Patient is an 82yo female here with a hx of COPD here for COPD exacerbation. PCP Prudencio Hernandez [facility] and Medicaid GUN PROFILER reviewed EMR. Per provider in rounds, patient is on 3L of O2 at baseline. Patient's tropes are up trending. Patient will get an echo and is currently on a drip. Earliest would d/c is Thursday. Per chart, patient lives at [facility]. Per nursing staff, likely no additional needs other than the services she already receives from [facility] upon d/c. Per nursing staff patient has not been up and moving. Nursing staff reports patient has a history of falls. GUN PROFILER entered room and introduced self and role. Patient was resting in bed and appeared A/Ox4 but was sleepy throughout interaction. Patient lives at [facility] and uses a FWW at baseline. Patient utilizes [facility] for meal prep, transportation, and other housekeeping needs. Patient would like Gisela nicolas ([phone]) to be her DPOA. Patient gave CM team permission to contact Gisela with any needs. Patient reports no other needs from CM team at this time. GUN PROFILER called [facility] and spoke with Cari. Cari requested chart notes from this author. Cari reported that they do not have transport available on the weeks and if she were to d/c Thursday Medicaid transport would likely need to be arranged. GUN PROFILER faxed updated clinicals to [facility]. Plan: Patient likely to d/c to [facility] when medically stable. If Thursday, will likely need medicaid transport. If thursday, facility can provide transport. CM team will continue to follow closely. KIMBERLI Almendarez Discharge Planning/Care Management CM Discharge Assessment Start: 07/24/23 14:09 Freq: Status: Active Protocol: Document 07/24/23 14:09 CORTNEY (Rec: 07/24/23 14:14 [id number]) Discharge Planning Assessment Assigned Diet Consultant KIMBERLI Aleman DPOA/Assigned Designee Name Gisela (maria isabel) Contact Information [phone] Advance Directives? Yes: polst Advance Directives on File No History Provided By Patient,Medical Record Prior Living Arrangements Assisted Living Household Members none Type of transporation used prior to Relies on Others admit Facility Name Admitted From: [facility] Willing to Return to Facility? Yes Independent with ADL's No Is patient alert and oriented? Yes Needs Assistance With Meal Prep,Managing Medications ,Home Chores / Shopping DME Already Rented / Owned FWW / Walker Discharge Plan Home Transportation Arrangement facility transportation Whiteboard Updated in Patient Room with Yes name and ext. # of Diet Consultant Review Status In Process Next Review Type Continued Stay Review
[2023-07-24 15:23] LABS: PTT Partial Thromboplastin Tim 47 SECONDS (26-36)
[2023-07-24 15:33] LABS: Troponin I 0.198 ng/mL (0.01-0.034)
[2023-07-24] MEDS: ALBUTEROL/IPRATROPIUM 3 ML AMPUL INH (18:56)
[2023-07-24] MEDS: ATORVASTATIN 20 MG TABLET 40 MG PO (21:13)
[2023-07-24 22:08] LABS: PTT Partial Thromboplastin Tim 40 SECONDS (26-36)
[2023-07-25] VITALS (9 sets, daily range): BP systolic 129–164; BP diastolic 65–91; PULSE 80–91; RESP 14–18; TEMP 35.8–36.2; O2SAT 92–100
[2023-07-25] MEDS: methylPREDNISolone 125 MG/2 ML VIAL 60 MG IV ×2 (05:59→18:47)
[2023-07-25 06:04] LABS: Hematocrit 26.1 % (36-46); Mean Corpuscular HGB Conc 30.5 % (30-36); Mean Corpuscular Hemoglobin 16.2 PG (26-34); Neutrophils Percent Auto 80.2 % (50-75); Red Blood Cell Count 4.92 X10^6/uL (4.0-5.2); Red Cell Distribution Width 18.4 % (11.6-14.8); White Blood Cell Count 11.9 X10^3/uL (4.5-11.0)
[2023-07-25 06:05] LABS: Add Manual Diff / Slide Review SLIDE REVIEW; Basophils Absolute Auto 0 /uL (0-100); Basophils Percent Auto 0.3 % (0-2); Eosinophils Absolute Auto 0 /uL (0-450); Lymphocytes Absolute Auto 1700 /uL (1100-4500); Lymphocytes Percent Auto 14.5 % (25-40); Monocytes Absolute Auto 600 /uL (0-900); Neutrophils Absolute Auto 9500 /uL (1500-7000)
[2023-07-25 06:19] LABS: Anisocytosis 2+; Hypochromasia 1+; Microcytosis 3+; Platelet Estimate Adequate on smear
[2023-07-25 06:20] LABS: Ovalocytes 1+
[2023-07-25 06:39] LABS: BUN Creatinine Ratio 41.2 (6-22); Blood Urea Nitrogen 56 mg/dL (7-17); Carbon Dioxide 28 mmol/L (22-32); Chloride 101 mmol/L (98-107); Estimated Glomerular Filt Rate 39 mL/min (>60); Glucose 124 mg/dL (80-110); HEMOLYSIS < 15 (0-50); Magnesium 2.4 mg/dL (1.6-2.3); Potassium 3.6 mmol/L (3.4-5.1); Sodium 139 mmol/L (137-145)
--- NOTE | 2023-07-25 06:49 | PC.NURSE ---
Patient refused lab draw for PTT, said that she would do it at 10am. Notified Dr. Mcdonnell he said Fine-10am is fine.
--- NOTE | 2023-07-25 08:06 | PM.PN.1 ---
Subjective Subjective Interval history: Patient is annoyed she was woken up several times last night. Otherwise has no complaints. Exam Vital Signs (past 8 hours): - 07/25/23 00:16 07/25/23 04:19 Temperature 96.8 F L 96.8 F L Pulse Rate 84 80 Respiratory Rate 16 18 Blood Pressure 129/70 136/71 Pulse Oximetry 100 99 Oxygen Flow Rate 3 3 Oxygen Delivery Method Nasal Cannula Oxygen Flow Rate 3 Narrative Exam Narrative: GEN: cachectic female on 3L O2 HEENT: moist mucous membranes, PERRL NECK: trachea midline, no JVD CV: regular rate and rhythm, no murmurs PULM: decreased breath sounds bilaterally ABD: soft, nontender, nondistended, no organomegaly EXT: warm and well perfused with no edema NEURO: awake, alert, oriented, no focal deficits Objective Labs 07/25/23 05:44 07/25/23 06:17 Labs: Laboratory Results - last 24 hr 07/24/23 07/24/23 07/24/23 08:09 08:09 08:09 WBC 8.2 RBC 4.90 Hgb 8.2 L Hct 26.3 L MCV 53.7 L MCH 16.8 L MCHC 31.2 RDW 18.2 H Plt Count 124 L Neut % (Auto) 86.7 H Lymph % (Auto) 9.3 L [place] % (Auto) 3.6 Eos % (Auto) 0.0 L Baso % (Auto) 0.4 Neut # (Auto) 7100 H Lymph # (Auto) 800 L [place] # (Auto) 300 Eos # (Auto) 0 Baso # (Auto) 0 Nucleated RBCs Cancelled Hypersegmented Neuts Cancelled Hypogranular Neuts Cancelled Reactive Lymphocytes Cancelled Smudge Cells Cancelled Other Cell Type Cancelled Toxic Granulation Cancelled Toxic Vacuolation Cancelled Dohle Bodies Cancelled Hernesto Rods Cancelled WBC Morphology Comment Cancelled Platelet Estimate Cancelled Clumped Platelets Cancelled Plt Morphology Comment Cancelled RBC Morphology Cancelled Dimorphic RBCs Cancelled Polychromasia Cancelled Hypochromasia Cancelled Poikilocytosis Cancelled Basophilic Stippling Cancelled Anisocytosis Cancelled Microcytosis Cancelled Macrocytosis Cancelled Spherocytes Cancelled Pappenheimer Bodies Cancelled Sickle Cells Cancelled Target Cells Cancelled Tear Drop Cells Cancelled Ovalocytes Cancelled Stomatocytes Cancelled Helmet Cells Cancelled [place] Bodies Cancelled [place] Rings Cancelled Linh Cells Cancelled Acanthocytes (Spur) Cancelled Rouleaux Cancelled Schistocytes Cancelled APTT Sodium 141 Potassium 3.6 Chloride 103 Carbon Dioxide 29 BUN 50 H Creatinine 1.52 H Estimated GFR 34 L BUN/Creatinine Ratio 32.9 H Glucose 284 H Calcium 8.7 Magnesium 1.7 Iron TIBC % Saturation Transferrin Ferritin Troponin I 07/24/23 07/24/23 07/24/23 08:09 08:09 08:09 WBC RBC Hgb Hct MCV MCH MCHC RDW Plt Count Neut % (Auto) Lymph % (Auto) [place] % (Auto) Eos % (Auto) Baso % (Auto) Neut # (Auto) Lymph # (Auto) [place] # (Auto) Eos # (Auto) Baso # (Auto) Nucleated RBCs Hypersegmented Neuts Hypogranular Neuts Reactive Lymphocytes Smudge Cells Other Cell Type Toxic Granulation Toxic Vacuolation Dohle Bodies Hernesto Rods WBC Morphology Comment Platelet Estimate Clumped Platelets Plt Morphology Comment RBC Morphology Dimorphic RBCs Polychromasia Hypochromasia Poikilocytosis Basophilic Stippling Anisocytosis Microcytosis Macrocytosis Spherocytes Pappenheimer Bodies Sickle Cells Target Cells Tear Drop Cells Ovalocytes Stomatocytes Helmet Cells [place] Bodies [place] Rings Linh Cells Acanthocytes (Spur) Rouleaux Schistocytes APTT Sodium Potassium Chloride Carbon Dioxide BUN Creatinine Estimated GFR BUN/Creatinine Ratio Glucose Calcium Magnesium Iron 23 L TIBC 215 L % Saturation 11 L Transferrin 146 L Ferritin 1520 H Troponin I 0.302 H* 07/24/23 07/24/23 07/24/23 11:08 14:27 15:05 WBC RBC Hgb Hct MCV MCH MCHC RDW Plt Count Neut % (Auto) Lymph % (Auto) [place] % (Auto) Eos % (Auto) Baso % (Auto) Neut # (Auto) Lymph # (Auto) [place] # (Auto) Eos # (Auto) Baso # (Auto) Nucleated RBCs Hypersegmented Neuts Hypogranular Neuts Reactive Lymphocytes Smudge Cells Other Cell Type Toxic Granulation Toxic Vacuolation Dohle Bodies Hernesto Rods WBC Morphology Comment Platelet Estimate Clumped Platelets Plt Morphology Comment RBC Morphology Dimorphic RBCs Polychromasia Hypochromasia Poikilocytosis Basophilic Stippling Anisocytosis Microcytosis Macrocytosis Spherocytes Pappenheimer Bodies Sickle Cells Target Cells Tear Drop Cells Ovalocytes Stomatocytes Helmet Cells [place] Bodies [place] Rings [place] Cells Acanthocytes (Spur) Rouleaux Schistocytes APTT 67 H 47 H D Sodium Potassium Chloride Carbon Dioxide BUN Creatinine Estimated GFR BUN/Creatinine Ratio Glucose Calcium Magnesium Iron TIBC % Saturation Transferrin Ferritin Troponin I 0.198 H* 07/24/23 07/24/23 07/25/23 21:51 21:51 05:44 WBC 11.9 H RBC 4.92 Hgb 8.0 L Hct 26.1 L MCV 53.0 L MCH 16.2 L MCHC 30.5 RDW 18.4 H Plt Count Not Reportable Neut % (Auto) 80.2 H Lymph % (Auto) 14.5 L [place] % (Auto) 5.0 Eos % (Auto) 0.0 L Baso % (Auto) 0.3 Neut # (Auto) 9500 H Lymph # (Auto) 1700 [place] # (Auto) 600 Eos # (Auto) 0 Baso # (Auto) 0 Nucleated RBCs Hypersegmented Neuts Hypogranular Neuts Reactive Lymphocytes Smudge Cells Other Cell Type Toxic Granulation Toxic Vacuolation Dohle Bodies Hernesto Rods WBC Morphology Comment Platelet Estimate Adequate on smear Clumped Platelets Plt Morphology Comment RBC Morphology See below Dimorphic RBCs Polychromasia Hypochromasia 1+ H Poikilocytosis Basophilic Stippling Anisocytosis 2+ H Microcytosis 3+ H Macrocytosis Spherocytes Pappenheimer Bodies Sickle Cells Target Cells Tear Drop Cells Ovalocytes 1+ H Stomatocytes Helmet Cells [place] Bodies [place] Rings Linh Cells Acanthocytes (Spur) Rouleaux Schistocytes APTT 40 H Sodium Potassium Chloride Carbon Dioxide BUN Creatinine Estimated GFR BUN/Creatinine Ratio Glucose Calcium Magnesium Iron TIBC % Saturation Transferrin Ferritin Troponin I Cancelled 07/25/23 07/25/23 06:17 06:17 WBC RBC Hgb Hct MCV MCH MCHC RDW Plt Count Neut % (Auto) Lymph % (Auto) [place] % (Auto) Eos % (Auto) Baso % (Auto) Neut # (Auto) Lymph # (Auto) [place] # (Auto) Eos # (Auto) Baso # (Auto) Nucleated RBCs Hypersegmented Neuts Hypogranular Neuts Reactive Lymphocytes Smudge Cells Other Cell Type Toxic Granulation Toxic Vacuolation Dohle Bodies Hernesto Rods WBC Morphology Comment Platelet Estimate Clumped Platelets Plt Morphology Comment RBC Morphology Dimorphic RBCs Polychromasia Hypochromasia Poikilocytosis Basophilic Stippling Anisocytosis Microcytosis Macrocytosis Spherocytes Pappenheimer Bodies Sickle Cells Target Cells Tear Drop Cells Ovalocytes Stomatocytes Helmet Cells [place] Bodies [place] Rings Linh Cells Acanthocytes (Spur) Rouleaux Schistocytes APTT Sodium 139 Potassium 3.6 Chloride 101 Carbon Dioxide 28 BUN 56 H Creatinine 1.36 H Estimated GFR 39 L BUN/Creatinine Ratio 41.2 H Glucose 124 H D Calcium 9.0 Magnesium 2.4 H Iron TIBC % Saturation Transferrin Ferritin Troponin I [facility] Medical History C. difficile colitis COPD (chronic obstructive pulmonary disease) Rheumatoid arthritis with positive rheumatoid factor (10/01/16) Surgical History Status post delivery Family History Sister Age: 86 Hypertension Social History household members: none Smoking Status: Former smoker alcohol intake: current Assessment & Plan Assessment and plan (1) COPD exacerbation: Problem details: oxygen dependent. Increased oxygen demand. Status: Acute Plan: -Oxygen titration goal of 88-92%, avoid excess oxygen to prevent carbondioxide retention, Monitor mental status. Flutter valve. -Albuterol 2.5 mg nebulizer Q Hour for the next 4 to 6 hours -DuoNeb every 4 hours scheduled and every 2 hours as needed -Continue patient on 60 mg Solu-Medrol every 8 hours for severe exacerbation, reassess and taper or prednisone 60 mg daily. Prednisone 40 mg po daily x 5 days starting on day 2 of admission; -Azithromycin -Monitor patient on telemetry. -The patient does not improve we can consider BiPAP and further evaluation by ABG. (2) Hyperlipidemia, mixed: Status: Acute Plan: -restart statins (3) Primary hypertension: Status: Acute Plan: -restart metoprolol -Monitor closely (4) Iron deficiency anemia: Qualifiers: Iron deficiency anemia type: other iron deficiency Qualified Code(s): D50.8 - Other iron deficiency anemias Status: Acute Plan: -restart iron supplement (5) Chronic diastolic (congestive) heart failure: Status: Acute Plan -restart diuretics, metoprolol and statins Assessment & Plan narrative: # acute on chronic hypoxic resp failure -initially required 6L NC in the ED, on 3L chronically -now back to her baseline 3L #NSTEMI -trop elevated to 0.308, patient denies CP -likely demand ischemia, however given large bump in trop will treat with heparin drip x48 hours -echo repeated, pending read -trended trops to peak Time Spent With Patient Time with patient: 50 to 69 minutes with 50% spent counseling/coordinating care Quality VTE Deep Vein Thrombosis/Pulmonary Embolism Present on Admission: No
[2023-07-25] MEDS: BUDESONIDE 0.5 MG/2 ML NEB INH ×2 (08:32→19:41)
[2023-07-25] MEDS: ALBUTEROL/IPRATROPIUM 3 ML AMPUL INH ×2 (08:32→19:41)
[2023-07-25 10:17] LABS: PTT Partial Thromboplastin Tim 33 SECONDS (26-36)
[2023-07-25] MEDS: ASPIRIN EC 81 MG TABLET PO (10:22)
[2023-07-25] MEDS: METOPROLOL ER 25 MG TABLET PO ×2 (10:22→21:14)
[2023-07-25] MEDS: AZITHROMYCIN 250 MG TABLET 500 MG PO (10:22)
[2023-07-25] MEDS: cefTRIAXone 1,000 MG in SODIUM CHLORIDE 0.9% 100 ML 200 MG IV (10:23)
--- NOTE | 2023-07-25 14:17 | PC.NURSE ---
Addendum entered by Ariana Doe R.N. 07/25/23 18:04: declined AC dinner glucocheck, no SSI given. 138 at lunch. declined dinner. PRN order for TUMS. tolerates RA at rest, 2-3L o2 w/ exertion. Original Note: 0730: hep gtt infusing at 12.9/hour, next ptt at 1000. double check w/ THEO Motta. 1100: ptt drawn. 1400: ptt 33, bolus 3000 hep and increase to 14.9 per protocol. double check w/ Klarissa RN and Kassi, pharm.
[2023-07-25] MEDS: HEPARIN 5,000 UNIT/ML VIAL 3000 UNIT IV (14:30)
[2023-07-25] MEDS: CALCIUM CARBONATE 500 MG TAB 1000 MG PO (18:47)
[2023-07-25 20:56] LABS: PTT Partial Thromboplastin Tim 51 SECONDS (26-36)
[2023-07-25] MEDS: ATORVASTATIN 20 MG TABLET 40 MG PO (21:14)
[2023-07-26] VITALS (11 sets, daily range): BP systolic 143–156; BP diastolic 80–85; PULSE 72–93; RESP 16–18; TEMP 35.7–36.6; O2SAT 95–99
[2023-07-26] MEDS: methylPREDNISolone 125 MG/2 ML VIAL 60 MG IV ×2 (05:23→17:14)
[2023-07-26] MEDS: HEPARIN DRIP 25,000 UNIT/500 ML IV.SOLN 14.9 UNIT IV (05:24)
[2023-07-26 06:04] LABS: Basophils Absolute Auto 0 /uL (0-100); Eosinophils Absolute Auto 0 /uL (0-450); Hematocrit 27.5 % (36-46); Hemoglobin 8.5 g/dL (12.0-16.0); Lymphocytes Absolute Auto 1700 /uL (1100-4500); Lymphocytes Percent Auto 14.5 % (25-40); Mean Corpuscular HGB Conc 30.8 % (30-36); Mean Corpuscular Hemoglobin 16.3 PG (26-34); Mean Corpuscular Volume 53.1 fL (80-100); Monocytes Absolute Auto 600 /uL (0-900); Monocytes Percent Auto 4.6 % (3-14); Neutrophils Absolute Auto 9700 /uL (1500-7000); Neutrophils Percent Auto 80.9 % (50-75); Platelet Count 178 X10^3/uL (150-400); Red Blood Cell Count 5.18 X10^6/uL (4.0-5.2); Red Cell Distribution Width 18.3 % (11.6-14.8)
[2023-07-26 06:07] LABS: PTT Partial Thromboplastin Tim 41 SECONDS (26-36)
[2023-07-26 06:09] LABS: Add Manual Diff / Slide Review SLIDE REVIEW; Magnesium 2.1 mg/dL (1.6-2.3)
[2023-07-26 06:10] LABS: BUN Creatinine Ratio 47.8 (6-22); Blood Urea Nitrogen 54 mg/dL (7-17); Carbon Dioxide 28 mmol/L (22-32); Chloride 101 mmol/L (98-107); Estimated Glomerular Filt Rate 48 mL/min (>60); Glucose 127 mg/dL (80-110); HEMOLYSIS < 15 (0-50); Potassium 3.3 mmol/L (3.4-5.1); Sodium 139 mmol/L (137-145)
[2023-07-26 06:55] LABS: Anisocytosis 2+; Hypochromasia 1+; Microcytosis 3+; Ovalocytes 1+
[2023-07-26] MEDS: POTASSIUM CHLORIDE 20 MEQ TAB 40 MEQ PO (06:57)
[2023-07-26] MEDS: cefTRIAXone 1,000 MG in SODIUM CHLORIDE 0.9% 100 ML 200 MG IV (08:28)
[2023-07-26] MEDS: METOPROLOL ER 25 MG TABLET PO ×2 (08:29→20:20)
[2023-07-26] MEDS: AZITHROMYCIN 250 MG TABLET 500 MG PO (08:29)
[2023-07-26] MEDS: ASPIRIN EC 81 MG TABLET PO (08:29)
--- NOTE | 2023-07-26 10:13 | PC.NURSE ---
0900: a/o, forgetful at times. hep gtt d/c'd. PTT cancelled. OOB to toilet w/ 1pa & fww, unsteady gait. meds whole w/ applesauce, encourage chin tuck for safe swallow. L wrist fx- has velcro brace on/off thru the day, + CSM. 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 tolerates RA at rest, 2-3lpm via NC when exerted. continues w/ IV rocephin & zpak, WBC 12.0 frequent safety/room checks, bed alarm is on. call light w/in reach.
[2023-07-26] MEDS: ALBUTEROL/IPRATROPIUM 3 ML AMPUL INH (12:19)
--- NOTE | 2023-07-26 14:48 | CM.DPC ---
DCP Cont: Was informed by DC planning that mihaela dale, Laura, came over to assess patient for her to go home and she refused to accept her back, indicated that she falls all of the time, and they can't manage her, should try to get her to [facility]. Patient most likely would not qualify for retirement, is a one person assist. Mihaela dale stated when first called, we are busy, don't have enough staffing, can't come over until this afternoon to assess her. She then refused to accept patient back. Did do an avoidable day email to management, and medical device engineer, as well as director and CNO. Made a call to the [facility], Rain Davis. Her number is: [phone]. Did not leave patient's name, but in the message let her know that Sh[facility] has refused to accept patient back today. In Rain's message, she left a number for the [facility] for ad terminal makeup operator care facilities in this [facility]. Their number is: [phone]. Called the [facility], did not leave patient's name, but made a complaint about [place], in them not accepting patients back on weekends, or because they are too much for them to handle. Left the name and number of this UR nurse. Loni Antonio, RN/Pipe Welder
--- NOTE | 2023-07-26 14:55 | CM.DPNOTE ---
Discharge Planning Note: Micaela Solis from [facility] (where patient resides) came over to assess patient for return to facility today. She states patient is not ready and we should send her to their sister facility [facility] for a higher level of care. Refer to the nurses notes today. Nurse today, Ariana, states patient has been walking with walker to bathroom today without difficulty. Dr Bill had placed discharge order earlier. They are refusing to take patient back today. Dr Bill will put in PT Eval order for tomorrow. Faxed referrals to [facility] for RN, PT ([facility] does not take her insurance), F2F done. PLAN: Patient has discharge orders to return to [facility]. PT Eval recommendations, determine appropriate discharge plan. Communicate with [facility]. Santosh ROSE/DCP
--- NOTE | 2023-07-26 17:28 | P.PN_ITS ---
Subjective Subjective Interval history: Patient feels well. [facility] evaluating for taking back today, but they want PT/OT evals first. Exam Vital Signs (past 8 hours): - 07/26/23 12:35 07/26/23 12:00 07/26/23 15:56 Temperature 97.3 F L 97.1 F L Pulse Rate 72 80 93 H Respiratory Rate 18 17 17 Blood Pressure 145/84 H 143/80 H Pulse Oximetry 97 96 95 Oxygen Delivery Method Nasal Cannula Oxygen Flow Rate 2 2 0 Fraction of Inspired Oxygen 28 Fraction of Inspired Oxygen 28 SaO2/FiO2 Ratio 346 Oxygen Delivery Method Nasal Cannula Oxygen Flow Rate 0 Narrative Exam Narrative: GEN: cachectic female on 3L O2 HEENT: moist mucous membranes, PERRL NECK: trachea midline, no JVD CV: regular rate and rhythm, no murmurs PULM: decreased breath sounds bilaterally ABD: soft, nontender, nondistended, no organomegaly EXT: warm and well perfused with no edema NEURO: awake, alert, oriented, no focal deficits Objective Labs 07/26/23 05:47 07/26/23 05:47 Labs: Laboratory Results - last 24 hr 07/25/23 07/26/23 07/26/23 20:40 05:47 05:47 WBC 12.0 H RBC 5.18 Hgb 8.5 L Hct 27.5 L MCV 53.1 L MCH 16.3 L MCHC 30.8 RDW 18.3 H Plt Count 178 Neut % (Auto) 80.9 H Lymph % (Auto) 14.5 L [place] % (Auto) 4.6 Eos % (Auto) 0.0 L Baso % (Auto) 0.0 Neut # (Auto) 9700 H Lymph # (Auto) 1700 [place] # (Auto) 600 Eos # (Auto) 0 Baso # (Auto) 0 RBC Morphology See below Hypochromasia 1+ H Anisocytosis 2+ H Microcytosis 3+ H Ovalocytes 1+ H APTT 51 H D Sodium Potassium Chloride Carbon Dioxide BUN Creatinine Estimated GFR BUN/Creatinine Ratio Glucose Calcium Magnesium 2.1 07/26/23 07/26/23 05:47 05:47 WBC RBC Hgb Hct MCV MCH MCHC RDW Plt Count Neut % (Auto) Lymph % (Auto) [place] % (Auto) Eos % (Auto) Baso % (Auto) Neut # (Auto) Lymph # (Auto) [place] # (Auto) Eos # (Auto) Baso # (Auto) RBC Morphology Hypochromasia Anisocytosis Microcytosis Ovalocytes APTT 41 H D Sodium 139 Potassium 3.3 L Chloride 101 Carbon Dioxide 28 BUN 54 H Creatinine 1.13 H Estimated GFR 48 L BUN/Creatinine Ratio 47.8 H Glucose 127 H Calcium 9.0 Magnesium PFSH Medical History C. difficile colitis COPD (chronic obstructive pulmonary disease) Rheumatoid arthritis with positive rheumatoid factor (10/01/16) Surgical History Status post delivery Family History Sister Age: 86 Hypertension Social History household members: none Smoking Status: Former smoker alcohol intake: current Assessment & Plan Assessment and plan (1) COPD exacerbation: Problem details: oxygen dependent. Increased oxygen demand. Status: Acute Plan: -Oxygen titration goal of 88-92%, avoid excess oxygen to prevent carbondioxide retention, Monitor mental status. Flutter valve. -Albuterol 2.5 mg nebulizer Q Hour for the next 4 to 6 hours -DuoNeb every 4 hours scheduled and every 2 hours as needed -Continue patient on 60 mg Solu-Medrol every 8 hours for severe exacerbation, reassess and taper or prednisone 60 mg daily. Prednisone 40 mg po daily x 5 days starting on day 2 of admission; -Azithromycin -Monitor patient on telemetry. -The patient does not improve we can consider BiPAP and further evaluation by ABG. (2) Hyperlipidemia, mixed: Status: Acute Plan: -restart statins (3) Primary hypertension: Status: Acute Plan: -restart metoprolol -Monitor closely (4) Iron deficiency anemia: Qualifiers: Iron deficiency anemia type: other iron deficiency Qualified Code(s): D50.8 - Other iron deficiency anemias Status: Acute Plan: -restart iron supplement (5) Chronic diastolic (congestive) heart failure: Status: Acute Plan: -restart diuretics, metoprolol and statins Assessment & Plan narrative: # acute on chronic hypoxic resp failure -initially required 6L NC in the ED, on 3L chronically -now back to her baseline 3L #NSTEMI -trop elevated to 0.308, patient denies CP -likely demand ischemia, however given large bump in trop will treat with heparin drip x48 hours -echo repeated, pending read -trended trops to peak Dispo: Back to [place] pending PT/OT evals on 07/27. Time Spent With Patient Time with patient: 50 to 69 minutes with 50% spent counseling/coordinating care Quality VTE Deep Vein Thrombosis/Pulmonary Embolism Present on Admission: No
[2023-07-26] MEDS: ATORVASTATIN 20 MG TABLET 40 MG PO (20:20)
[2023-07-26] MEDS: SODIUM CHLORIDE 0.9% FLUSH 10 ML IV (20:21)
--- NOTE | 2023-07-26 23:36 | PC.NURSE ---
Patient is alert and oriented although unable to recall why she was brought to ER. Breath sounds diminished throughout with crackles at bases. Has moist non-productive cough. Denies SOB both at rest and with exertion. On oxygen at 2L/min per baseline so continues on O2 per NC with sat of 99%. HRR w/BP of 150/85; does state she has some dizziness when first getting out of bed. Denies nausea. BT present and reports she has been passing flatus but did not have a BM today. Denies dysuria with urination and has been continent. Is able to turn herself in bed. Up to bathroom with walker and 1 assist due to some weakness in LE. Denies pain. Fall risk score is high and bed alarm is activated.
[2023-07-27 03:05] VITALS: PULSE 72; O2SAT 94
[2023-07-27 03:18] VITALS: BP 144/70; PULSE 92; RESP 18; TEMP 36.2; O2SAT 95
[2023-07-27] MEDS: methylPREDNISolone 125 MG/2 ML VIAL 60 MG IV (06:06)
[2023-07-27] MEDS: SODIUM CHLORIDE 0.9% FLUSH 10 ML IV ×2 (06:07→09:58)
[2023-07-27 06:10] LABS: Magnesium 2.1 mg/dL (1.6-2.3)
[2023-07-27 06:11] LABS: BUN Creatinine Ratio 47.2 (6-22); Blood Urea Nitrogen 51 mg/dL (7-17); Carbon Dioxide 31 mmol/L (22-32); Chloride 102 mmol/L (98-107); Estimated Glomerular Filt Rate 51 mL/min (>60); Glucose 128 mg/dL (80-110); HEMOLYSIS < 15 (0-50); Potassium 3.5 mmol/L (3.4-5.1); Sodium 139 mmol/L (137-145)
[2023-07-27 06:13] LABS: Hematocrit 28.4 % (36-46); Hemoglobin 8.8 g/dL (12.0-16.0); Mean Corpuscular Hemoglobin 16.7 PG (26-34); Mean Corpuscular Volume 53.9 fL (80-100); Platelet Count 212 X10^3/uL (150-400); Red Blood Cell Count 5.26 X10^6/uL (4.0-5.2); Red Cell Distribution Width 18.3 % (11.6-14.8); White Blood Cell Count 11.4 X10^3/uL (4.5-11.0)
[2023-07-27 06:18] LABS: Add Manual Diff / Slide Review YES
[2023-07-27] MEDS: CALCIUM CARBONATE 500 MG TAB 1000 MG PO (07:09)
[2023-07-27 07:49] LABS: Neutrophils Absolute Manual 9462 /uL (3000-5900); Total Cells Counted 100
[2023-07-27 07:50] LABS: Anisocytosis 1+; Microcytosis 3+
[2023-07-27 07:51] LABS: Ovalocytes 1+; Toxic Granulation Present
[2023-07-27 08:34] VITALS: PULSE 90; RESP 20; O2SAT 95
[2023-07-27] MEDS: ALBUTEROL/IPRATROPIUM 3 ML AMPUL INH (08:34)
[2023-07-27] MEDS: BUDESONIDE 0.5 MG/2 ML NEB INH (08:34)
--- NOTE | 2023-07-27 09:28 | OT.IP.EVAL ---
Current Diagnoses Other iron deficiency anemias (07/24/23) Mixed hyperlipidemia (07/24/23) Essential (primary) hypertension (07/24/23) Chronic diastolic (congestive) heart failure (07/24/23) Chronic obstructive pulmonary disease with (acute) exacerbation (07/24/23) Past Medical History (Last Reviewed 07/24/23 @ 01:17 by Javier Beebe DO) C. difficile colitis COPD (chronic obstructive pulmonary disease) Rheumatoid arthritis with positive rheumatoid factor (10/01/16) Surgical History (Last Reviewed 06/16/23 @ 07:24 by Mery Murillo DO) Status post delivery Occupational Therapy Inpatient Evaluation/Re-Eval M1 PT/OT-IP Prior Functional Status Start: 07/27/23 08:05 Freq: NEEDED Status: Active Protocol: Document 07/27/23 09:34 CGR (Rec: 07/27/23 09:45 CGR [id number]) Medical Review Prior Functional Status Medical History Reviewed Yes Communication Pt is an effective verbal communicator. Mobility and Gait Pt states that she ambualtes with 4WW at baseline but has been falling backwards recently. Activities of Daily Living and IADL's Pt states that she moved into [place] in the past few months and has needed more assist recently. They have been helping with bathing, dressing and toileting. Pt has her meals served to her. 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 M2 OT-IP Current Condition Start: 07/27/23 09:34 Freq: Status: Active Protocol: Document 07/27/23 09:34 CGR (Rec: 07/27/23 09:45 CGR [id number]) Occupational Therapy Current Condition Current Condition Evaluation Date 07/27/23 Treatment Diagnosis COPD exacerbation, NSTEMI Diagnosis Onset Date 07/24/23 M3 OT- IP Subjective and Pain Start: 07/27/23 09:34 Freq: Status: Active Protocol: Document 07/27/23 09:34 CGR (Rec: 07/27/23 09:45 CGR [id number]) OT- Subjective Occupational Therapy Visit Type Type Initial Evaluation Visit Start Time 09:06 Visit Stop Time 09:28 Total Visit Minutes 22 Occupational Therapy Visit Comments Patient Comments I just feel very tired all the time OT Pain Assessment Pain When Pain Assessed At Rest Pain Present Pain Present Denied Pain M4 OT- IP ADL's Start: 07/27/23 09:34 Freq: Status: Active Protocol: Document 07/27/23 09:34 CGR (Rec: 07/27/23 09:45 CGR [id number]) OT HRB-Vzdi-Ddugrob Comments OT Self-Feeding Comments not meal time but pt states she was able to eat breakfast without difficulty OT ADL-Grooming Comments OT Grooming Comments Pt declined, states that she is too fatigued after ambulating to the bathroom. OT ADL-Oral Care Comments Oral Care Comments Pt declined, states that she is too fatigued after ambulating to the bathroom. OT ADL-Dressing Comments OT Dressing Comments not performed OT ADL-Toileting General Evaluation Toileting Ability Minimal Assistance Areas Needing Assistance Manage Clothing Comments OT Toileting Comments Pt needed assist with pulling up her briefs after toileting. Pt states this is her recent baseline [facility]. OT ADL-Bathing Comments OT Bathing Comments not performed M5 OT- IP IADL's Start: 07/27/23 09:34 Freq: Status: Active Protocol: Document 07/27/23 09:34 CGR (Rec: 07/27/23 09:45 CGR [id number]) OT-Instrumental Activities of Daily Living Deficits IADL Deficits Identified No Deficits Home Safety Awareness Awareness of Need for Assistance at Home Good Awareness Ability to Problem Solve Emergency Able to Problem Solve Situations Medication Management Medication Management Caregiver Administers Money Management Money Management Caregiver Provides Assistance Meal Preparation Meal Preparation Caregiver Provides Assist Rrts Rrts Caregiver Provides Assist Driving Driving Comments Pt does not drive M6 OT- IP Functional Cognition Start: 07/27/23 09:34 Freq: Status: Active Protocol: Document 07/27/23 09:34 CGR (Rec: 07/27/23 09:45 CGR [id number]) Cognitive Factors Limiting Selfcare Function Cognitive Ability Level of Alertness Alert Patient Orientation Name,Age,Birthday,Month,Date, Year,Day of Week,Place, Situation Attention Span Ability Capable of Focused Attention, Capable of Sustained Attention Ability to Follow Commands Able to Follow One Step Commands with Increased Time, Able to Follow One Step Commands with Repetition Cognitive Comments Cognitive Assessment Comments Pt is oriented x3 without difficulty. OT- Vision and Hearing OT- Hearing Assessment OT- Hearing Assessment WFL OT- Vision Assessment Visual Acuity Glasses For Reading Visual Attentiveness WFL Occular Pursuits WFL Visual Convergence WFL M7 OT- IP Mobility and Balance Start: 07/27/23 09:34 Freq: Status: Active Protocol: Document 07/27/23 09:34 CGR (Rec: 07/27/23 09:45 CGR [id number]) OT-Transfer Assessment Sit to and From Stand Sit to and from Stand Contact Guard Assistance Transfers Transfer Ability Contact Guard Assistance Technique Transfer Destination Chair,Toilet Transfer Technique Stand Step Pivot Devices Transfer Assistive Devices Gait Belt,Front Wheeled Walker Comments Mobility Comments Pt ambulated from the toielt back to the chair with OT. Pt declined other activity at this time. OT- Gait Assessment Gait Gait Assistance Required: Contact Guard Assist Assistive Devices Assistive Device Gait Belt,Front Wheeled Walker Comments Gait Ability Comments Mobility in the room. OT- Balance Assessment Sitting Balance and Reactions Static Sitting Balance Ability Good Dynamic Sitting Balance Ability Good M8 OT- IP Objective Assessments Start: 07/27/23 09:34 Freq: Status: Active Protocol: Document 07/27/23 09:34 CGR (Rec: 07/27/23 09:45 CGR [id number]) OT Gross Range of Motion Upper Extremity Range of Motion Assessment Within Functional Limits OT Strength Upper Extremity Strength Assessment Bilaterally Impaired Comments Strength Comments grossly 3+/5 OT- Coordination Assessment Upper Extremity Finger to Nose Test Within Functional Limits Finger Tapping Test Within Functional Limits OT-Muscle Tone Assessment Muscle Tone WNL Yes OT Sensation Assessment Edema Edema Absent M9 OT- IP Assessment and Plan Start: 07/27/23 09:34 Freq: Status: Active Protocol: Document 07/27/23 09:34 CGR (Rec: 07/27/23 09:45 CGR [id number]) OT Summary Assessment and Plan Potential Rehabilitation Potential Good Analytic Complexity at Evaluation Moderate Summary OT Impairments Strength,Balance,Functional Mobility,Grooming,Dressing, Toileting,Bathing,Toilet Transfers,Shower Transfers, Activity Tolerance Progress Towards Goals Progressing Toward Goals Assessment Summary Pt presents as a moderate complexity evaluation s/p admit for COPD exacerbation and NSTEMI. Pt is globally weak with UE strength of 3+/5. Pt reports recent falls backwards when transferring and ambulating. Pt would benefit from continued therapy. Pt would benefit from SNF but appears to be at or close to her baseline which has been slowly declining since she has moved into assistive living. Goals Self-Feeding Goal Independent Grooming Goal Independent Dressing Goal Independent Toileting Goal Independent Bathing Goal Independent Toilet Transfer Goal Independent Shower Transfer Goal Independent Days to Meet Goals 30 Frequency of Treatment Frequency Of Treatment Once a Day Treatment Plan OT Treatment Plan ADL Training,Functional Mobility,Patient/Family Education,Discharge Planning Other Treatment Recommendations and Next shower, endurance training, UE Treatment Focus therex Discharge Recommendations OT Discharge Recommendations SNF Rehab Transportation Needs at Discharge Private Vehicle
[2023-07-27 09:50] VITALS: BP 152/87; PULSE 84; RESP 16; TEMP 36.2; O2SAT 99
[2023-07-27] MEDS: ACETAMINOPHEN 325 MG TABLET 650 MG PO (09:56)
[2023-07-27] MEDS: ASPIRIN EC 81 MG TABLET PO (09:56)
[2023-07-27] MEDS: POTASSIUM CHLORIDE 20 MEQ TAB 40 MEQ PO (09:57)
[2023-07-27] MEDS: cefTRIAXone 1,000 MG in SODIUM CHLORIDE 0.9% 100 ML 200 MG IV (09:57)
[2023-07-27] MEDS: METOPROLOL ER 25 MG TABLET PO (09:57)
--- NOTE | 2023-07-27 10:57 | PT.IIE ---
Current Diagnoses Other iron deficiency anemias (07/24/23) Mixed hyperlipidemia (07/24/23) Essential (primary) hypertension (07/24/23) Chronic diastolic (congestive) heart failure (07/24/23) Chronic obstructive pulmonary disease with (acute) exacerbation (07/24/23) Surgical History (Last Reviewed 06/16/23 @ 07:24 by Mery Murillo DO) Status post delivery Medical History (Last Reviewed 07/24/23 @ 01:17 by Javier Beebe DO) C. difficile colitis COPD (chronic obstructive pulmonary disease) Rheumatoid arthritis with positive rheumatoid factor (10/01/16) Physical Therapy Inpatient Evaluation/Re-Eval M1 PT/OT-IP Prior Functional Status Start: 07/27/23 08:05 Freq: NEEDED Status: Discharge Protocol: Document 07/27/23 10:57 AW (Rec: 07/27/23 11:56 AW [id number]) Medical Review Prior Functional Status Medical History Reviewed Yes Communication Pt is an effective verbal communicator. Mobility and Gait Pt states that she ambulates with 4WW at baseline but has been falling backwards recently. She had two ED visits in May after falls which resulted separately in distal radius fracture and head trauma. Activities of Daily Living and IADL's Pt states that she moved into [place] in the past few months and has needed more assist recently. They have been helping with bathing, dressing and toileting. Pt has her meals served to her. She has been trying to walk to the dining [place] but feels she is unable to do so regularly. Social History Household Members none Living Arrangements Assisted Living Home Environment High Toilet,Walk in Shower Home Equipment Four Wheel Walker Employment Status Retired Additional Social History Comment Pt states she recently moved into [facility]. She previously lived on [facility]. 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 M2 PT-IP Current Condition Start: 07/27/23 08:05 Freq: NEEDED Status: Discharge Protocol: Document 07/27/23 10:57 AW (Rec: 07/27/23 11:56 AW [id number]) Physical Therapy Current Condition Current Condition Evaluation Date 07/27/23 Treatment Diagnosis acute on chronic hypoxic resp failure; falls hx; impaired gait/mobility Onset Date 07/25/23 M3 PT-IP Subjective Start: 07/27/23 08:05 Freq: NEEDED Status: Discharge Protocol: Document 07/27/23 10:57 AW (Rec: 07/27/23 11:56 AW [id number]) Subjective Physical Therapy Visit Type Type Initial Evaluation Visit Start Time 10:27 Visit Stop Time 10:57 Total Visit Minutes 30 Physical Therapy Visit Comments Patient Comments Pt is very tired but willing to participate with PT Therapy Pain Assessment Pain When Pain Assessed During Mobility Pain Present Pain Present Denied Pain M4 PT-IP Mobility and Gait Start: 07/27/23 08:05 Freq: NEEDED Status: Discharge Protocol: Document 07/27/23 10:57 AW (Rec: 07/27/23 11:56 AW [id number]) PT-Bed Mobility Assessment Supine to Sit Supine to Sit Independent Sit to Supine Sit to Supine Independent Scooting Scooting to Edge of Bed Independent PT-Transfer Assessment Sit to and From Stand Sit to and from Stand Standby Assistance,Use of Upper Extremities Equipment Transfer Assistive Device Gait Belt,Front Wheeled Walker Orthotic/Prosthetic Devices or Brace: No Transfers Transfer Destination Chair,Toilet Transfer Technique Stand Step Pivot Transfer Ability Level of Assist Standby Assistance,1 Person Assistance,Use of Upper Extremities Comments Mobility Comments Pt was found lying in bed, able to transition to sitting up without assist. SpO2 was 96 % on 3 L/min in sitting. Goal SpO2 per H&P is 88-92%. Discussed with RN and titrated flow rate down to 2 L/momwith SpO2 stable ~95%. Pt stood without undue effort and then ambulated quite slowly with FWW a total of 30 feet in the room before stating she needed to use the toilet. She was able to walk an additional 15 feet to the toilet and to pull her briefs down. She sat with heavy reliance on the grab bar and had a bowel movement. RN aware. Pt completed pericare independently, stood, and needed assist to pull up her briefs. SpO2 was stable 95 %. Pt reported high fatigue level and requested return to bed. She walked using FWW with SBA and returned to supine IND. Pt was left with call light in reach. Gait Assessment Gait Gait Assistance Required: Standby Assistance Distance (Feet) 45 Assistive Devices Assistive Device Gait Belt,Front Wheeled Walker Gait Deviations General Gait Pattern Decreased Stride Length, Decreased Feet Clearance, Flexed Trunk Factors Limiting Gait Function Factors Limiting Gait Function Decreased Activity Tolerance, Decreased Strength,Poor Balance Comments Gait Comments Pt is moving more slowly than her baseline. PT-Balance Assessment Sitting Balance and Reactions Static Sitting Balance Ability Good Dynamic Sitting Balance Ability Good Standing Balance and Reactions Static Standing Balance Ability Fair Dynamic Standing Balance Ability Fair Device Used FWW M5 PT-IP Objective Assessments Start: 07/27/23 08:05 Freq: NEEDED Status: Discharge Protocol: Document 07/27/23 10:57 AW (Rec: 07/27/23 11:56 AW [id number]) Orientation Orientation/Cognition Level of Alertness Alert Orientation Name,Day of Week,Place, Situation Language Function Ability No Deficits Noted Safety Awareness Understands Safety Issues Gross Range of Motion Upper Extremity ROM Assessment Within Functional Limits Lower Extremity ROM Assessment Within Functional Limits Strength Lower Extremity Strength Hip 4/5 Knee ext 4+/5; flex 4/5 Ankle 4/5 Other Assessments Other Other Assessments Ocular motor screen is significant for horizontal nystagmus in primary gaze. Appears to be right-beating. Positive head thrust test bilaterally with significant lag. M6 PT-IP Treatment Start: 07/27/23 08:05 Freq: NEEDED Status: Discharge Protocol: Document 07/27/23 10:57 AW (Rec: 07/27/23 11:56 AW [id number]) Physical Therapy Treatment Education Education Provided Precautions M7 PT-IP Assessment and Plan Start: 07/27/23 08:05 Freq: NEEDED Status: Discharge Protocol: Document 07/27/23 10:57 AW (Rec: 07/27/23 11:56 AW [id number]) PT Summary Assessment and Plan Potential Rehabilitation Potential Good Summary Impairments Strength,Balance,Transfers, Gait,Activity Tolerance Assessment Summary Nancy is an 82 yo woman seen for PT evaluation while admitted with acute on chronic respiratory failure. She regularly uses 3 L/min O2 at home. PMH includes CHF, COPD, HTN, HLD, and rheumatoid arthritis. Pt is modified independent at baseline with use of 4WW for short distances . Of note, she has had several falls recently, including two injurious falls with left distal radius fracture and with head trauma. CLOF: Pt presents with strength deficits in BLE, generally bradykinetic gait using FWW, and overall increased falls risk. Ocular motor and vestibular screens are positive for horizontal nystagmus in primary gaze and positive head thrust test bilaterally, indicating vestibular dysfunction which may be contributing to falls risk. PT recommends pt return to [facility] with assist as before admission. Home PT is indicated to mitigate falls risk and for further vestibular assessment. Goals Bed Mobility Goal Independent Transfer Goal Independent,Four Wheeled Walker Gait Goal Independent,Four Wheel Walker Gait Distance 75 Frequency of Treatment Frequency Of Treatment Once a Day Treatment Plan Physical Therapy Treatment Plan Bed Mobility Training,Transfer Training,Gait Training, Therapeutic Exercise,Balance Retraining,Discharge Planning, Hot or Cold Pack,Neuromuscular Re-ed Precautions Other Precautions falls risk; SpO2 goal 88-92% Recommendations To Nursing Amount of Assist Needed 1 Person Assist Discharge Recommendations PT Discharge Recommendations Home with / Assist Available,Home Health Transportation Needs at Discharge Wheelchair/Cabulance
--- NOTE | 2023-07-27 11:09 | PM.DS.1 ---
History of Present Illness History of Present Illness Chief complaint: SOB Narrative: 82-year-old female with history of COPD on home oxygen of 3L, CHF, HTN, HLP was brought to the emergency department by EMS for evaluation what sounds like a fairly sudden onset of shortness of breath. She received 2 DuoNebs prior to arrival.? Patient denies any cough, fever, chest pain, palpitations, nausea, vomiting, abdominal pain, diarrhea or dysuria. Has baseline memory loss and is at her baseline mental status per EMS who received this information from nursing facility.? Patient's HPI and review of systems somewhat limited given her mental status and also her presenting condition. Discharge Providers Provider Date of admission: 07/24/23 00:38 Discharge Date: 07/27/23 Primary care physician: Prudencio Hernandez MD Consults: 07/26/23 14:18 Consult to Occupational Therapy Evaluate & Treat Comment: Physician Instructions: Evaluate and treat Consult to Physical Therapy Evaluate & Treat Comment: Physician Instructions: Evaluate and Treat Discharge provider: Rich Bill, DO Summary Hospital Course Discharge Diagnosis: (1) COPD exacerbation: ?Problem details: oxygen dependent.? Increased oxygen demand. ?Status:?Acute ?Plan: -Oxygen titration goal of 88-92%, avoid excess oxygen to prevent carbondioxide retention, Monitor mental status. Flutter valve. -Albuterol 2.5 mg nebulizer Q Hour for the next 4 to 6 hours -DuoNeb every 4 hours scheduled and every 2 hours as needed -Continue patient on 60 mg Solu-Medrol every 8 hours for severe exacerbation, reassess and taper or prednisone 60 mg daily. Prednisone? 40 mg po daily x 5 days starting on day 2 of admission; -Azithromycin -Monitor patient on telemetry. -The patient does not improve we can consider BiPAP and further evaluation by ABG. (2) Hyperlipidemia, mixed: ?Status:?Acute ?Plan: -restart statins (3) Primary hypertension: ?Status:?Acute ?Plan: -restart metoprolol -Monitor closely (4) Iron deficiency anemia: ?Qualifiers: ?Iron deficiency anemia type:?other iron deficiency? Qualified Code(s):?D50.8 - Other iron deficiency anemias ?Status:?Acute ?Plan: -restart iron supplement (5) Chronic diastolic (congestive) heart failure: ?Status:?Acute ?Plan: -restart diuretics, metoprolol and statins Assessment & Plan narrative: # acute on chronic hypoxic resp failure -initially required 6L NC in the ED, on 3L chronically -now back to her baseline 3L -finished 5 days of steroids #NSTEMI -trop elevated to 0.308, patient denies CP -likely demand ischemia, however given large bump in trop will treat with heparin drip x48 hours -echo repeated, shows EF 35-40% with hypokinesis of LV -continue metoprolol -trended trops to peak of 0.302 and downtrended -placed on daily aspirin, cannot tolerate statins Hospital Course: Admitted for acute on chronic hypoxic resp failure due to COPD exacerbation and possible NSTEMI with rising trop. No CP however so treated with 48hours of IV heparin drip. Steroids given and O2 requirements returned to baseline of 3L NC. Echo showed EF 35-40% which was reduced from previous of 40-45%. Placed on losartan and spironolactone and should f/u with cardiology. Time Spent with Patient Time spent: Greater than 30 minutes Exam Vital Signs (past 8 hours): - 07/27/23 03:18 07/27/23 08:34 07/27/23 09:50 Temperature 97.1 F L 97.1 F L Pulse Rate 92 H 90 84 Respiratory Rate 18 20 16 Blood Pressure 144/70 H 152/87 H Pulse Oximetry 95 95 99 Oxygen Delivery Method Nasal Cannula Oxygen Flow Rate 2 3 3.5 Fraction of Inspired Oxygen 21 SaO2/FiO2 Ratio 447 Oxygen Delivery Method Nasal Cannula Oxygen Flow Rate 3.5 Narrative Exam Narrative: GEN: cachectic female on 3L O2 HEENT: moist mucous membranes, PERRL NECK: trachea midline, no JVD CV: regular rate and rhythm, no murmurs PULM: decreased breath sounds bilaterally ABD: soft, nontender, nondistended, no organomegaly EXT: warm and well perfused with no edema NEURO: awake, alert, oriented, no focal deficits Objective Labs 07/27/23 05:34 07/27/23 05:34 Labs: Laboratory Results - last 24 hr 08/28/23 08/28/23 08/28/23 05:34 05:34 05:34 WBC 11.4 H RBC 5.26 H Hgb 8.8 L Hct 28.4 L MCV 53.9 L MCH 16.7 L MCHC 31.0 RDW 18.3 H Plt Count 212 Neut % (Auto) Not Reportable Lymph % (Auto) Not Reportable [place] % (Auto) Not Reportable Eos % (Auto) Not Reportable Baso % (Auto) Not Reportable Lymph # (Auto) Not Reportable [place] # (Auto) Not Reportable Baso # (Auto) Not Reportable Total Counted 100 Seg Neutrophils % 79.0 H Band Neutrophils % 4.0 Lymphocytes % (Manual) 14.0 L Monocytes % (Manual) 2.0 Eosinophils % (Manual) 1.0 L Neutrophils # (Manual) 9462 H Toxic Granulation Present H RBC Morphology See below Anisocytosis 1+ H Microcytosis 3+ H Ovalocytes 1+ H Sodium 139 Potassium 3.5 Chloride 102 Carbon Dioxide 31 BUN 51 H Creatinine 1.08 H Estimated GFR 51 L BUN/Creatinine Ratio 47.2 H Glucose 128 H Calcium 9.0 Magnesium 2.1 PFSH Medical History C. difficile colitis COPD (chronic obstructive pulmonary disease) Rheumatoid arthritis with positive rheumatoid factor (10/01/16) Surgical History Status post delivery Family History Sister Age: 86 Hypertension Social History household members: none Smoking Status: Former smoker alcohol intake: current Discharge Plan Discharge Plan Patient Disposition: Assisted Living Discharge orders & Medications Discharge Orders: Discharge (Order); Ordered 07/27/23 Ordered By: Rich Bill Prescriptions: New losartan 25 mg tablet 25 mg PO DAILY Qty: 30 0RF aspirin 81 mg Tablet,Delayed Release (Dr/Ec) 81 mg PO DAILY Qty: 30 0RF Continued quetiapine 25 mg tablet See Rx Instructions .ROUTE .COMPLEX Qty: 14 0RF Dose Instruction: TAKE (1/2) TABLET BY MOUTH ONCE DAILY AT BEDTIME NEEDED FOR INSOMNIA Rx Instructions: TAKE (1/2) TABLET BY MOUTH ONCE DAILY AT BEDTIME NEEDED FOR INSOMNIA omeprazole 40 mg capsule,delayed release(DR/EC) 40 mg PO DAILY PRN (Reason: heartburn) Qty: 60 3RF leflunomide 20 mg tablet 20 mg PO DAILY Trelegy Ellipta 100-62.5-25 mcg blister with device 1 inh inhalation DAILY triamterene-hydrochlorothiazid 37.5-25 mg tablet 1 tab PO DAILY Qty: 90 3RF Spiriva with HandiHaler 18 mcg capsule, w/inhalation device 1 cap inhalation DAILY Qty: 1 3RF Rx Instructions: puncture 1 cap using device; one dose = 2 inhalations metoprolol succinate 25 mg tablet extended release 24 hr 25 mg PO BID Qty: 180 3RF fluticasone propionate [Flonase Allergy Relief] 50 mcg/actuation spray,suspension 2 spray intranasal DAILY Qty: 16 5RF Rx Instructions: administer into each nostril albuterol sulfate 90 mcg/actuation HFA aerosol inhaler 2 puff inhalation Q4-6H Qty: 8.5 3RF pravastatin 10 mg tablet 10 mg PO BEDTIME Qty: 90 0RF ondansetron 4 mg tablet,disintegrating 4 mg PO Q8H Qty: 30 0RF Rx Instructions: Take one to two tablets three times daily as needed for nausea polyethylene glycol 3350 [Miralax] 17 gram/dose powder See Rx Instructions PO DAILY Qty: 238 0RF Rx Instructions: Take one 1/2 scoop in water with each meal nitrofurantoin macrocrystal 100 mg capsule 100 mg PO BID Qty: 20 0RF Rx Instructions: must administer with a meal/food Follow up/Referrals: Prudencio Hernandez MD [Primary Care Provider] - 2 Weeks Visit Report/Discharge Packet Stand Alone Forms: Patient Portal/API, Stroke Signs & Symptoms Discharge Data Primary Care Provider: Prudencio Hernandez Quality VTE Deep Vein Thrombosis/Pulmonary Embolism Present on Admission: No
--- NOTE | 2023-07-27 12:41 | CM.DPC ---
DCP Continued: NET MENDER reviewed EMR. Patient cleared to d/c back to [facility] yesterday. PT/OT report that it would likely benefit patient to participate in HH rehab. 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 NET MENDER updated charge nurse and nursing staff. NET MENDER entered room and introduced self and role. Patient reported disliking [facility]. Patient has worked with [facility] in past and is open to them upon d/c today. Patient is in agreement to d/c back to [facility] with the understanding that [facility] NET MENDER will also attempt to get her to a new ASSISTED home. NET MENDER completed face to face and order. Nursing/PT/OT/NET MENDER. NET MENDER for half-way planning in order for patient to attempt to change [facility]. CM Community Music Therapist Yolette contacted Simone to inform him of new referral. Simone reports all is well to accept patient. Plan: patient to d/c to [facility] with [facility]. CM team will continue to follow as needed. KIMBERLI Almendarez
--- NOTE | 2023-07-27 12:45 | CM.DPC ---
DCP Discharge [facility] Per MD, pt remains medically stable for discharge back to [facility] today. SW requested PT/OT prioritize and therapies kindly agreed to see pt today and per PT/OT, pt back to baseline but could benefit from strengthening like HH or outpt PT. SW called [facility] RN station and updated on pt discharge and therapy eval and that since pt back to baseline her managed Medicare insurance likely would not auth SNF but HH could be arranged. RN states she will check in with their covering tools administrator since Cari is on vacation. [facility] called back stating they can accept today but need to transport now as they do not have much transport available today. ROSANA De La Vega, goat driver, and CM coworker kindly assisted with meeting bedside with pt who is agreeable to HH especially if [employer]LE[employer] CLERK included as she would like to move to a different facility other than [facility] and Charge updated MD on need for d/c orders stat and ROSANA De La Vega kindly faxed [facility] due to SW triage needs. Plan: Patient discharged to [facility] via facility transport and new [facility] referral made to include [employer]LE[employer] CLERK for community coordination. KIMBERLI Carrington
== END 2023-07-27 11:30 | disposition home health service (06) | DRG 190 ==
LOC: ED 07-24 00:39 → AC 07-24 06:56
PROVIDERS: Student in an Organized Health Care Education/Training Program; Admitting Provider Internal Medicine; Emergency Provider Emergency Medicine; PCP Family Medicine; Referring Provider Emergency Medicine; Visit Provider Internal Medicine
DX: J44.1 Chronic obstructive pulmonary disease with (acute) exacerbation (principal); J96.21 Acute and chronic respiratory failure with hypoxia; I50.32 Chronic diastolic (congestive) heart failure; I24.8 Other forms of acute ischemic heart disease; D84.821 Immunodeficiency due to drugs; E78.2 Mixed hyperlipidemia; I11.0 Hypertensive heart disease with heart failure; D50.9 Iron deficiency anemia, unspecified; M06.9 Rheumatoid arthritis, unspecified; Z79.69 Long term (current) use of other immunomodulators and immunosuppressants; Z99.81 Dependence on supplemental oxygen; Z87.891 Personal history of nicotine dependence; Z51.81 Encounter for therapeutic drug level monitoring
CPT/HCPCS: 36415; 71045; 80048; 80053; 82550; 82728; 82962; 83540; 83550; 83690; 83735; 83880; 84145; 84484; 85007; 85025; 85730; 87633; 93005; 93306; 94640; 94760; 94762; 96365; 96366; 96367; 96368; 96374; 96375; 96376; 97162; 97166; 97530; 97535; 99284; 99285; G0378; J0696; J1644; J1815; J2930; J3475; J7613; Q9957